=== PATIENT | male | born 1970 | race Caucasian/White ===

== ENCOUNTER → 2018-11-06 08:01 | Outpatient (CLI) | payer OTHER, SELFPAY ==
[2018-11-06 10:35] LABS: Absolute Lymphocyte Count 1.71 X10^3/ul (0.83-4.51); Absolute Neutrophil Count 2.7 X10^3/uL (2.0-7.7); Basophil# 0.04 X10^3/uL; Basophil% 0.8 % (0-1); Eosinophil# 0.13 X10^3/uL; Eosinophils% 2.6 % (0-5); Hemoglobin 15.2 g/dl (13.0-16.5); Lymphocyte # 1.71 X10^3/ul (4.0); Lymphocyte % 33.9 % (19-41); Mean Corpuscular Hgb 30.9 pg (27.0-32.0); Mean Corpuscular Volume 93.5 fL (80-94); Mean Platelet Vol. 10.9 fl (6.2-12.0); Monocyte% 9.9 % (0-10); Neutrophil # 2.66 X10^3/uL (2.7-7.7); Neutrophil % 52.8 % (47-70); POSITIVE COUNT NO; POSITIVE DIFFERENTIAL NO; POSITIVE MORPHOLOGY NO; Platelet Count 186 K/mm3 (150-450); RBC Distribution Width CV 12.9 % (11.6-14.6); RBC Distribution Width SD 43.3 fl (35.1-43.9); Red Blood Count 4.92 M/mm3 (4.6-6.2)
[2018-11-06 11:00] LABS: Anion Gap 7 (5-15); BUN 16 mg/dL (7-18); BUN/Creat Ratio 15.1 RATIO (10-20); Calcium,Total 8.7 mg/dL (8.5-10.1); Chloride 107 mmol/L (98-107); Cholesterol 168 mg/dL (200); Creatinine, Serum 1.06 mg/dL (0.70-1.30); EST Glomerular Filtration Rate 79 mL/min (>60); Est Glom Filt Rate - Afr Amer 96 mL/min (>60); Glucose 79 mg/dL (74-106); High Density Lipoprotein 56 mg/dL; Potassium 4.2 mmol/L (3.5-5.1); Sodium Level 143 mmol/L (136-145); Thyroid Stim Hormone (TSH) 1.29 uIU/mL (0.358-3.74); Triglycerides 72 mg/dL; Very Low Density Lipoprotein 14 mg/dL (5-40)
== END ==
PROVIDERS: Family Provider Family Medicine; PCP Family Medicine; Referring Provider Family Medicine; Visit Provider Family Medicine
DX: K58.9 Irritable bowel syndrome, unspecified (principal); R53.83 Other fatigue; Z13.220 Encounter for screening for lipoid disorders
CPT/HCPCS: 36415; 80048; 80061; 84403; 84443; 85025

== ENCOUNTER → 2019-02-11 10:37 | Outpatient (CLI) | payer OTHER, SELFPAY ==
--- NOTE | 2019-02-11 10:44 | VDLE_ITS ---
Reason For Study: Popliteal cyst RIGHT LEFT GSV is normal. CFV is compressible, spontaneous, phasic, CFV is compressible, spontaneous, phasic, competent, and demonstrates normal competent and demonstrates normal augmentation. augmentation. FV is compressible, spontaneous, phasic, competent and demonstrates normal augmentation. POP V is compressible, spontaneous, phasic, competent and demonstrates normal augmentation. T/P Trunk is compressible. PTV is compressible. RT PerV is compressible. Right popliteal fossa nonvascularized cyst noted measuring approximently 4.76 x 1.43 x 5.57 cm. Procedure Exam performed in department. A preliminary report was called and/or faxed to [facility]. Interpretation Summary Deep veins of the right lower extremity are patent and compressible segmentally. There is no evidence of right lower extremity deep vein thrombosis. Valvular competence appears intact within the proximal deep venous system on the right . The right greater saphenous vein appears patent and compressible segmentally. A non-vascular, hypoechoic structure is noted in the right popliteal space, measuring 4.76 cm x 1.43 cm x 5.57 cm. This probably represents a popliteal cyst. Clinical correlation is advised. Ordering Physician: Arnold Banda Referring Physician: Arnold Banda Performed By: Randi Gaytan RVT
== END ==
PROVIDERS: Family Provider Family Medicine; PCP Family Medicine; Referring Provider Family Medicine; Visit Provider Family Medicine
DX: M71.21 Synovial cyst of popliteal space [Baker], right knee (principal)
CPT/HCPCS: 93971

== ENCOUNTER → 2019-07-29 16:38 | Outpatient (CLI) | payer OTHER, SELFPAY | PROVIDERS: Family Provider Family Medicine; PCP Family Medicine; Referring Provider Family Medicine; Visit Provider Family Medicine | DX: R35.0 Frequency of micturition (principal) | CPT/HCPCS: 36415; 84153; 87086; G0103 ==

== ENCOUNTER → 2019-08-04 16:51 | Outpatient (CLI) | payer OTHER, SELFPAY ==
--- NOTE | 2019-08-04 16:52 | US_ITS ---
STUDY: ULTRASOUND - URINARY BLADDER REASON FOR EXAM: Male, 48 years old. Incomplete emptying TECHNIQUE: Ultrasound evaluation of the urinary bladder was performed with real-time and static patel-scale imaging. COMPARISON: None. FINDINGS: There is no right UVJ calculus. There is a visualized right ureteral jet. There is no left UVJ calculus. There is a visualized left ureteral jet. The distended volume of the urinary bladder is 395.55 ml. The empty volume of the urinary bladder is 72.01 ml. The bladder wall is within normal limits. The bladder wall measures 2 mm. There is no demonstrated bladder wall mass lesion. There are no demonstrated bladder calculi. US/Post Void Residual Bladder IMPRESSION: Mild residual postvoid bladder content Electronically Signed: Zachery Woods MD at 21:39 EST , Service support ,
== END ==
PROVIDERS: Family Provider Family Medicine; PCP Family Medicine; Referring Provider Family Medicine; Visit Provider Family Medicine
DX: R33.9 Retention of urine, unspecified (principal)
CPT/HCPCS: 51798

== ENCOUNTER → 2020-03-11 14:25 | Outpatient (CLI) | payer OTHER, SELFPAY ==
[2020-03-11 14:14] VITALS: BMI 25.7
== END ==
PROVIDERS: PCP Family Medicine; Referring Provider Chiropractor; Visit Provider Chiropractor
DX: M99.03 Segmental and somatic dysfunction of lumbar region (principal)
CPT/HCPCS: 72100

== ENCOUNTER → 2020-07-14 08:15 | Outpatient (CLI) | payer OTHER, SELFPAY ==
[2020-03-11 14:14] VITALS: BMI 25.7
[2020-07-14 10:00] LABS: Absolute Lymphocyte Count 1.74 X10^3/uL (0.83-4.51); Absolute Neutrophil Count 2.3 X10^3/uL (2.0-7.7); Basophil# 0.04 X10^3/uL; Basophil% 0.9 % (0-1); Eosinophil# 0.14 X10^3/uL; Hematocrit 44.9 % (40-54); Hemoglobin 14.6 g/dL (13.0-16.5); Lymphocyte # 1.74 X10^3/ul (4.0); Lymphocyte % 37.7 % (19-41); Mean Corp Hgb Conc 32.5 g/dL (32-36); Mean Corpuscular Hgb 30.9 pg (27.0-32.0); Mean Corpuscular Volume 95.1 fL (80-94); Mean Platelet Vol. 11.4 fl (6.2-12.0); Monocyte# 0.43 X10^3/uL; Monocyte% 9.3 % (0-10); NRBC Flagged by Analyzer 0 % (0-5); Neutrophil # 2.26 X10^3/uL (2.7-7.7); Neutrophil % 48.9 % (47-70); Platelet Count 197 K/mm3 (150-450); RBC Distribution Width CV 12.8 % (11.6-14.6); Red Blood Count 4.72 M/mm3 (4.6-6.2); White Blood Count 4.6 K/mm3 (4.4-11.0)
[2020-07-14 10:34] LABS: ALB/GLOB Ratio 1.1 RATIO (0.9-2.4); AST(SGOT) 20 U/L (15-37); Alanine Aminotransfer ALT/SGPT 25 U/L (16-61); Albumin, Serum 3.8 g/dL (3.2-5.0); Alkaline Phosphatase 85 U/L (45-117); Anion Gap 5 (5-15); BUN 17 mg/dL (7-18); Calcium,Total 8.4 mg/dL (8.5-10.1); Chloride 105 mmol/L (98-107); Cholesterol 185 mg/dL (200); Creatinine, Serum 1.06 mg/dL (0.70-1.30); EST Glomerular Filtration Rate 78 mL/min (>60); Est Glom Filt Rate - Afr Amer 95 mL/min (>60); Globulin 3.5 g/dL (2.2-4.2); Glucose 86 mg/dL (74-106); High Density Lipoprotein 64 mg/dL; Protein, Total 7.3 g/dL (6.4-8.2); Sodium Level 139 mmol/L (136-145); Triglycerides 81 mg/dL; Very Low Density Lipoprotein 16 mg/dL (5-40)
== END ==
PROVIDERS: PCP Family Medicine; Referring Provider Family Medicine; Visit Provider Family Medicine
DX: Z00.00 Encounter for general adult medical examination without abnormal findings (principal)
CPT/HCPCS: 36415; 80053; 80061; 85025

== ENCOUNTER → 2021-05-11 16:16 | Outpatient (CLI) | payer OTHER, SELFPAY ==
[2021-05-11 18:08] LABS: CRP < 2.90 mg/L (0.0-3.0)
[2021-05-13 16:08] LABS: Endomysial Antibody IgA Negative (Negative)
[2021-05-13 21:12] LABS: Immunoglobulin A 167 mg/dL (90-386); t-Transglutaminase IgA <2 U/mL (0-3)
== END ==
PROVIDERS: PCP Family Medicine; Referring Provider Internal Medicine Gastroenterology; Visit Provider Internal Medicine Gastroenterology
DX: R19.7 Diarrhea, unspecified (principal)
CPT/HCPCS: 36415; 82784; 83516; 86140; 86255

== ENCOUNTER → 2022-06-27 | Outpatient (CLI) | payer OTHER, SELFPAY ==
[2022-06-27 16:12] LABS: Absolute Lymphocyte Count 2.49 X10^3/uL (0.83-4.51); Absolute Neutrophil Count 3.9 X10^3/uL (2.0-7.7); Basophil# 0.06 X10^3/uL; Basophil% 0.8 % (0-1); Eosinophil# 0.16 X10^3/uL; Eosinophils% 2.2 % (0-5); Hematocrit 42.1 % (40-54); Hemoglobin 14.6 g/dL (13.0-16.5); Lymphocyte # 2.49 X10^3/ul (0.83-4.51); Lymphocyte % 34.1 % (19-41); Mean Corp Hgb Conc 34.7 g/dL (32-36); Mean Corpuscular Volume 92.3 fL (80-94); Mean Platelet Vol. 10.8 fl (6.2-12.0); Monocyte# 0.67 X10^3/uL; Monocyte% 9.2 % (0-10); NRBC Flagged by Analyzer 0 % (0-5); Neutrophil # 3.92 X10^3/uL (2.7-7.7); Neutrophil % 53.6 % (47-70); Platelet Count 184 K/mm3 (150-450); Red Blood Count 4.56 M/mm3 (4.6-6.2); White Blood Count 7.3 K/mm3 (4.4-11.0)
--- NOTE | 2022-06-27 16:20 | RAD_ITS ---
STUDY: X-RAY CHEST REASON FOR EXAM: Male, 51 years old. Pre-op. TECHNIQUE: PA and lateral views of the chest. COMPARISON: 08/04/2021. FINDINGS: The lungs are clear and expanded. There is no demonstrated pleural abnormality. Normal size heart. Normal mediastinum and carrie. Normal visualized pulmonary arteries. Normal visualized aortic arch and descending thoracic aorta. Normal visualized thoracic spine. Normal visualized ribs, clavicles, and shoulders. There is no demonstrated abnormality of the visualized soft tissue structures of the upper abdomen. RAD/Chest PA and Lateral IMPRESSION: No acute cardiopulmonary disease or major interval change. Electronically Signed: Lee Middleton DO at 23:52 EDT ,
[2022-06-27 16:49] LABS: Vitamin B12 979 pg/mL (211-911); Vitamin D,25 Hydroxy 55.5 ng/mL
[2022-06-27 16:51] LABS: ALB/GLOB Ratio 1.1 RATIO (0.9-2.4); AST(SGOT) 27 U/L (15-37); Alanine Aminotransfer ALT/SGPT 33 U/L (16-61); Albumin, Serum 3.7 g/dL (3.2-5.0); Alkaline Phosphatase 91 U/L (45-117); Anion Gap 3 (5-15); BUN 19 mg/dL (7-18); BUN/Creat Ratio 15.6 RATIO (10-20); Calcium,Total 8.8 mg/dL (8.5-10.1); Chloride 108 mmol/L (98-107); Creatinine, Serum 1.22 mg/dL (0.70-1.30); EST Glomerular Filtration Rate 66 mL/min (>60); Est Glom Filt Rate - Afr Amer 80 mL/min (>60); Globulin 3.5 g/dL (2.2-4.2); Glucose 106 mg/dL (74-106); PSA,Total - Annual Screen 0.48 ng/mL (0.00-4.00); Potassium 4.1 mmol/L (3.5-5.1); Protein, Total 7.2 g/dL (6.4-8.2); Sodium Level 141 mmol/L (136-145); T4 Free Direct 0.85 ng/dL (0.76-1.46); Thyroid Stim Hormone (TSH) 1.61 uIU/mL (0.358-3.74)
[2022-06-28 14:40] LABS: Hemoglobin A1c 5.5 % (3.8-5.6)
[2022-07-08 14:12] LABS: Testosterone, Free 8.39 ng/dL (5.00-21.00)
[2022-07-09 12:14] LABS: Testosterone, % Free 2.15 % (1.50-4.20); Testosterone, Total 390 ng/dL (264-916)
== END | disposition home or self-care (01) ==
PROVIDERS: PCP Family Medicine; Referring Provider Student in an Organized Health Care Education/Training Program; Visit Provider Student in an Organized Health Care Education/Training Program
DX: Z01.818 Encounter for other preprocedural examination (principal); Z01.810 Encounter for preprocedural cardiovascular examination; Z01.811 Encounter for preprocedural respiratory examination
CPT/HCPCS: 36415; 71046; 80053; 82306; 82607; 83036; 84153; 84402; 84403; 84439; 84443; 85025; 93005; G0103

== ENCOUNTER → 2022-10-24 | Outpatient (CLI) | payer OTHER, SELFPAY ==
--- NOTE | 2022-10-24 15:30 | ECHOD_ITS ---
Reason For Study: NON-RHEUMATIC INSUFFICIENCY Procedure This was a 2D Doppler, Color Flow transthoracic echocardiogram. Exam performed in department. Left Ventricle Normal LV size. Left ventricular systolic function is lower limits of normal. The estimated ejection fraction is 53 %. No regional wall motion abnormalities noted. Right Ventricle Mildly dilated right ventricle. Normal systolic function. Atria Normal left atrium. Normal right atrium. Mitral Valve Normal mitral valve. Tricuspid Valve Normal tricuspid valve. Mild tricuspid valve insufficiency. Aortic Valve Normal aortic valve. Trisinus/trileaflet aortic valve. Mild (1+) aortic valve insufficiency. Pulmonic Valve Normal pulmonic valve. Great Vessels Normal aortic root. The pulmonary artery is normal size. Normal inferior vena cava. Pericardium/Pleural No pericardial effusion. MMode/2D Measurements & Calculations LVIDd: 5.7 cm IVSd: 0.98 cm Ao root diam: 3.4 cm LVIDs: 3.8 cm LVPWd: 1.0 cm RVDd: 4.7 cm FS: 32.8 % LAV(MOD-bp): 82.0 ml LA A4 area: 21.2 cm2 LA dimension(2D): 4.3 cm LAV(MOD-bp) Indexed: 38.5 ml/m2 LAV(MOD-sp2): 86.3 ml LAV(MOD-sp4): 71.6 ml RA A4 area: 21.4 cm2 Doppler Measurements & Calculations MV E max thierry: 48.5 cm/sec Lat Peak E' Thierry: 12.7 cm/sec Med Peak E' Thierry: 11.1 cm/sec MV A max thierry: 31.1 cm/sec E/E' lat: 3.8 E/E' med: 4.4 MV E/A: 1.6 Ao V2 max: 114.5 cm/sec AI max thierry: 412.1 cm/sec LV V1 max: 76.1 cm/sec Ao max P.2 mmHg AI max P.0 mmHg LV V1 max P.3 mmHg Ao V2 mean: 80.9 cm/sec AI dec slope: 155.5 cm/sec2 LV V1 mean P.3 mmHg Ao mean P.0 mmHg AI P1/2t: 776.1 msec LV V1 mean: 52.1 cm/sec Ao V2 VTI: 25.5 cm LV V1 VTI: 16.4 cm AV (velocity ratio): 0.64 MR max thierry: 459.1 cm/sec PA V2 max: 92.6 cm/sec TR max thierry: 189.5 cm/sec MR max P.3 mmHg TR max P.4 mmHg MR mean thierry: 404.0 cm/sec MR mean P.8 mmHg MR VTI: 164.6 cm ECHO/Echo Complete Interpretation Summary Normal LV size. Left ventricular systolic function is lower limits of normal. Mildly dilated right ventricle. The estimated ejection fraction is 53 %. Mild (1+) aortic valve insufficiency. Ordering Physician: Danielle Rubio Referring Physician: Danielle Rubio Performed By: Crystal Jay RDCS, RVT
== END | disposition home or self-care (01) ==
LOC: CVS 15:28
PROVIDERS: PCP Internal Medicine; Referring Provider Internal Medicine; Visit Provider Internal Medicine
DX: I35.1 Nonrheumatic aortic (valve) insufficiency (principal)
CPT/HCPCS: 93306

== ENCOUNTER → 2023-06-12 | Outpatient (CLI) | payer OTHER, SELFPAY ==
[2023-06-12 17:52] LABS: Hemoglobin 13.9 g/dL (13.0-16.5)
[2023-06-12 18:32] LABS: PSA,Total- Diagnostic 0.44 ng/mL (0.0-4.0)
== END | disposition home or self-care (01) ==
LOC: MTLAB 15:40
PROVIDERS: PCP Internal Medicine; Referring Provider Urology; Visit Provider Urology
DX: R53.1 Weakness (principal)
CPT/HCPCS: 36415; 84153; 84402; 84403; 85014; 85018

== ENCOUNTER → 2023-09-06 | Outpatient (CLI) | payer OTHER, SELFPAY ==
[2023-09-06 16:19] LABS: Absolute Lymphocyte Count 2.41 X10^3/uL (0.83-4.51); Absolute Neutrophil Count 3.6 X10^3/uL (2.0-7.7); Basophil# 0.06 X10^3/uL; Basophil% 0.9 % (0-1); Eosinophil# 0.15 X10^3/uL; Eosinophils% 2.2 % (0-5); Hematocrit 41.4 % (40-54); Hemoglobin 13.8 g/dL (13.0-16.5); Lymphocyte # 2.41 X10^3/ul (0.83-4.51); Lymphocyte % 35.2 % (19-41); Mean Corp Hgb Conc 33.3 g/dL (32-36); Mean Corpuscular Hgb 31.4 pg (27.0-32.0); Mean Corpuscular Volume 94.3 fL (80-94); Mean Platelet Vol. 10.8 fl (6.2-12.0); Monocyte# 0.62 X10^3/uL; Monocyte% 9.1 % (0-10); NRBC Flagged by Analyzer 0 % (0-5); Neutrophil # 3.59 X10^3/uL (2.7-7.7); Neutrophil % 52.3 % (47-70); Platelet Count 188 K/mm3 (150-450); RBC Distribution Width CV 12.5 % (11.6-14.6); RBC Distribution Width SD 43.7 fl (35.1-43.9); Red Blood Count 4.39 M/mm3 (4.6-6.2); White Blood Count 6.9 K/mm3 (4.4-11.0)
[2023-09-06 16:35] LABS: Anion Gap 1 (5-15); BUN 19 mg/dL (7-18); BUN/Creat Ratio 16.8 RATIO (10-20); Calcium,Total 8.6 mg/dL (8.5-10.1); Chloride 106 mmol/L (98-107); Creatinine, Serum 1.13 mg/dL (0.70-1.30); EST Glomerular Filtration Rate 72 mL/min (>60); Est Glom Filt Rate - Afr Amer 87 mL/min (>60); Glucose 118 mg/dL (74-106); Potassium 4.1 mmol/L (3.5-5.1); Sodium Level 137 mmol/L (136-145)
== END | disposition home or self-care (01) ==
LOC: LAB 15:45
PROVIDERS: PCP Internal Medicine; Referring Provider Student in an Organized Health Care Education/Training Program; Visit Provider Student in an Organized Health Care Education/Training Program
DX: Z01.818 Encounter for other preprocedural examination (principal)
CPT/HCPCS: 36415; 80048; 85025

== ENCOUNTER → 2024-07-03 | Outpatient (CLI) | payer OTHER, SELFPAY ==
[2024-07-03 18:20] LABS: Vitamin D,25 Hydroxy 60.6 ng/mL
[2024-07-03 18:25] LABS: ALB/GLOB Ratio 1.2 RATIO (0.9-2.4); AST(SGOT) 21 U/L (15-37); Alanine Aminotransfer ALT/SGPT 21 U/L (16-61); Albumin, Serum 3.9 g/dL (3.2-5.0); Alkaline Phosphatase 74 U/L (45-117); Anion Gap 6 (5-15); BUN 15 mg/dL (7-18); Calcium,Total 9.1 mg/dL (8.5-10.1); Chloride 106 mmol/L (98-107); Creatinine, Serum 1.07 mg/dL (0.70-1.30); EST Glomerular Filtration Rate 76 mL/min (>60); Est Glom Filt Rate - Afr Amer 92 mL/min (>60); Globulin 3.3 g/dL (2.2-4.2); Glucose 103 mg/dL (74-106); PSA,Total - Annual Screen 0.55 ng/mL (0.00-4.00); Potassium 3.5 mmol/L (3.5-5.1); Protein, Total 7.2 g/dL (6.4-8.2); Sodium Level 138 mmol/L (136-145)
== END | disposition home or self-care (01) ==
PROVIDERS: PCP Family Medicine; Referring Provider Family Medicine; Visit Provider Family Medicine
DX: Z12.5 Encounter for screening for malignant neoplasm of prostate (principal); E55.9 Vitamin D deficiency, unspecified
CPT/HCPCS: 36415; 80053; 82306; 84153; G0103

== ENCOUNTER → 2025-03-19 | Outpatient (CLI) | payer OTHER, SELFPAY ==
--- OUTSIDE RECORDS SUMMARY | 2025-03-19 07:17 | XMS RPT_ITS | CCD ---
Author Organization [facility] Care Team Providers Care Sql Database Developer Name Role Phone Dr. Janes Taylor Primary Care Provider Dr. Danielle Rubio Attending Provider Dr. Danielle Rubio Primary Care Provider Dr. Kirill Lewis Attending Provider Janes Taylor Unavailable Unavailable Unavailable MD JANES RUVALCABA Attending UnavailMD JANES Sandoval Referring Dr. Janes Rodriguez Primary Care Nancy Taylor MD, Janes Dye Primary Care Provider JANES TAYLOR Primary Care UnavailJANES Vergara Primary [facility] Unavailnga Taylor MD, Janes Lara Primary Care Provider JANES RUVALCABA Attending Unavailable JANES TAYLOR Primary Care UnavailJANES Sandoval Attending Unavailable JANES TAYLOR Primary Care UnavailJANES Sandoval Attending Unavailable JANES TAYLOR Primary Care UnavailJANES Sandoval Attending Unavailable JANES TAYLOR Primary [facility] UnavailJANES Sandoval Attending Unavailable JANES TAYLOR Primary Care UnavailJEREMIAH Manuel Attending Unavailable JANES TAYLOR Primary [facility] UnavailJANES Vergara Primary Care Unavailable NAZANIN LYNCH Attending Unavailable NAZANIN LYNCH Admitting Unavailable JANES TAYLOR Primary Care Unavailable NAZANIN LYNCH Attending Unavailable SCHINNER, JANES E Primary Care Unavailable SCHINNER, JANES E Primary Care Unavailable NAZANIN LYNCH Referring Unavailable SCHINNER, JANES Lara Primary Care Unavailable KAYLAH CLEMENTS Referring Unavailable ATTILA ADAMS Attending Unavailable SCHINNER, JANES E Primary Care Unavailable SCHINNER, JANES E Primary Care Unavailable SCHINNER, JANES E Primary Care Unavailable Richar Cain Attending Unavailable Schingloria, Janes E Referring Unavailable Schinner, Janes E Primary Care Unavailable Elvis Mitchell Attending Unavailable Nadia, Janes E Primary Care Unavailable Schinner, Janes E Referring Unavailable Hung Clay Attending Unavailable Danielle Rubio Primary Care Unavailable Danielle Rubio Referring Unavailable Janes Taylor Primary Care Unavailable Janes Taylor Attending Unavailable Janes Taylor Referring Unavailable Elvis Mitchell Attending Unavailable Nadia, Janes Lara Primary Care Unavailable Nadia, Janes Lara Primary Care Unavailable Kimani Garcia Attending Unavailable Danielle Rubio Primary Care Unavailable Hung Clay Attending Unavailable Danielle Rubio Referring Unavailable Danielle Rubio Primary Care Unavailable Hung Clay Attending Unavailable Danielle Rubio Referring Unavailable Allergies Allergy Classification Reported Allergen(s) Allergy Type Date of Onset Reaction(s) Facility (1 source) Seasonal Allergies: Uncoded; Translations: [Seasonal Allergies: Uncoded] Propensity to adverse reactions (disorder) [facility] Repository Medications Current Medications Medication Drug Class(es) Dates Sig (Normalized) Sig (Original) cephalexin 500 mg oral tablet (1 source) Cephalosporin Antibacterial Start: 04-27-2024 End: 05-02-2024 take 1 tablet by mouth every twelve hours Cephalexin 500 mg tab Indications: Cellulitis of skin Take 1 tablet by mouth every 12 hours for 5 days. 10 tablet 0 04/27/2024 05/02/2024 Active cholecalciferol 0.025 mg oral capsule (3 sources) Vitamin D Start: 09-07-2021 take 25 ug by mouth once daily Cholecalciferol (Vitamin D3) Active 25 MCG PO DAILY September 07, 2021 12:00am cholecalciferol, vitamin D3, (VITAMIN D3 ORAL) (8 sources) cholecalciferol, vitamin D3, (VITAMIN D3 ORAL) Take by mouth once daily. Active cholecalciferol, vitamin D3, (VITAMIN D3 ORAL) Take by mouth once daily. 0 Active DHEA (3 sources) Start: 10-19-2022 DHEA Active PO 1 time daily October 19, 2022 1:00am .225 ml Start: 10-19-2022 DHEA Active PO 1 time daily October 19, 2022 12:00am .225 ml DOCOSAHEXANOIC ACID/EPA (FIS H OIL ORAL) (8 sources) DOCOSAHEXANOIC A IRENE/EPA (FISH OIL ORAL) Take by mouth. Active DOCOSAHEXANOIC A IRENE/EPA (FISH OIL ORAL) Take by mouth. 0 Active Magnesium (8 sources) MAGNESIUM ORAL T vickie by mouth once daily. Active MAGNESIUM ORAL T vickie by mouth once daily. 0 Active mirtazapine 7.5 mg oral tablet (6 sources) Start: 08-31-2024 take 3.75-7.5 mg by mouth once daily at bedtime Mirtazapine (REMERON) 7.5 mg tablet Take 3.75-7.5 mg by mouth daily at bedtime. 08/31/2024 Active MULTIVITAMIN ORAL (8 sources) MULTIVITAMIN ORA L Take by mouth once daily. Active MULTIVITAMIN ORA L Take by mouth once daily. 0 Active Multivitamin preparation (3 sources) Start: 09-07-2021 take 1 tablet by mouth once daily Multivitamin Active 1 TABLET PO DAILY September 07, 2021 1:00am Start: 09-07-2021 take 1 tablet by [facility] once daily Multivitamin Active 1 TABLET PO DAILY September 07, 2021 12:00am [place]-3 Fatty Acids (Fish Oil Concentrate) 1,000 mg capsule (3 sources) Start: 09-07-2021 take 1 capsule by mouth once daily [place]-3 Fatty Acids (Fish Oil Concentrate) 1,000 mg capsule Active 1000 MG PO DAILY September 07, 2021 1:00am Start: 09-07-2021 take 1 capsule by mo [facility] once daily [place]-3 Fatty Acids (Fish Oil Concentrate) 1,000 mg capsule Active 1000 MG PO DAILY September 07, 2021 12:00am oxyCODONE hydrochloride 5 mg oral tablet (1 source) Opioid Agonist Start: 11-05-2024 End: 11-08-2024 take 1 tablet by mouth every six hours as needed oxyCODONE IR (ROXICODONE) 5 mg immediate release tablet Indications: Non-recurrent bilateral inguinal hernia without obstruction or gangrene Take 1 tablet by mouth every 6 hours as needed for up to 3 days. 12 tablet 11/05/2024 1:04 PM EST 11/05/2024 11/08/2024 Active psylium husk (3 sources) Start: 10-19-2022 psylium husk A ctive PO 1 time daily October 19, 2022 1:00am Start: 10-19-2022 psylium husk A ctive PO 1 time daily October 19, 2022 12:00am tadalafil 5 mg oral tablet (19 sources) Phosphodiesterase 5 Inhibitor Start: 06-06-2023 End: 06-19-2025 take 1 tablet by mouth once daily tadalafil (Cialis) 5 mg tablet Indications: Benign prostatic hyperplasia with lower urinary tract symptoms, symptom details unspecified Take 1 tablet (5 mg) by mouth once daily. 30 tablet 11 06/19/2024 06/19/2025 Active 0.5 ml testosterone enanthate 200 mg/ml auto-injector (13 sources) Androgen Start: 12-19-2023 testosterone enanthate (Xyosted) 100 mg/0.5 mL auto-injector Indications: Hypogonadism in male Inject 1 Syringe (100 mg) under the skin every 7 days. 4 each 5 12/19/2023 Active Start: 08-13-2023 End: 04-09-2024 testosterone cypionate (Depo-Testosterone) 200 mg/mL injection Indications: Hypogonadism in male Inject 3 mL (600 mg) into the muscle every 30 (thirty) days. 3 mL 5 08/13/2023 04/09/2024 Discontinued (Med List Cleanup) Start: 06-06-2023 inject 100 mg by sub cutaneous injection every week Xyosted 100 MG/0.5ML Subcutaneous Solution Auto-injector INJECT 100 MG Weekly Quantity: 4 Refills: 0 Ordered: 06-Jun-2023 Janes Ruvalcaba II, MD Start : 06-Jun-2023 Active Completed/Discontinued Medications Medication Drug Class(es) Dates Sig (Normalized) Sig (Original) acyclovir 50 mg/ml topical cream (6 sources) Herpesvirus Nucleoside Analog DNA Polymerase Inhibitor, Herpes Simplex Virus Nucleoside Analog DNA Polymerase Inhibitor, Herpes Zoster Virus Nucleoside Analog DNA Polymerase Inhibitor Start: 07-04-2013 End: 10-16-2024 acyclovir (ZOVIRAX) 5 % crea Apply 1 application to affected area five times daily. 3 Tube 4 07/14/2013 10/16/2024 Discontinued (Course of therapy completed) azithromycin 250 mg oral tablet (3 sources) Macrolide Antimicrobial Start: 08-04-2021 End: 09-07-2021 take 2-5 tablets by mouth once daily Azithromycin (Zithromax Z-George) 250 mg tablet Discontinued 0 PO .COMPLEX 6 August 04, 2021 12:00am September 07, 2021 8:17am take 500 mg today (day 1), then 250 mg for 4 days (days 2-5) PO benzonatate 100 mg oral capsule (2 sources) Non-narcotic Antitussive Start: 09-08-2024 End: 10-16-2024 take 1 capsule by mouth every eight hours as needed benzonatate (TESSALON PERLE) 100 mg capsule Take 1 capsule by mouth three times a day as needed. 21 capsule 09/08/2024 10/16/2024 Discontinued (Course of therapy completed) clomiPHENE citrate 50 mg oral tablet (8 sources) Estrogen Agonist/Antagonist Start: 06-13-2023 take 1 tablet by mouth once daily Clomid 50 MG Oral Tablet TAKE 1 TABLET DAILY. Quantity: 30 Refills: 11 Ordered: 13-Jun-2023 Janes Ruvalcaba II, MD Start : 13-Jun-2023 Active pantoprazole 40 mg delayed release oral tablet (6 sources) Proton Pump Inhibitor Start: 06-11-2013 End: 10-16-2024 take 1 tablet by mouth once daily pantoprazole (PROTONIX) 40 mg tablet Take 1 tablet by mouth once daily. 90 tablet 4 06/11/2013 10/16/2024 Discontinued (Course of therapy completed) End: 10-16-2024 PANTOPRAZOLE SODIUM (PROTONI X ORAL) Take by mouth. Pt unsure of dosage 10/16/2024 Discontinued (Course of therapy completed) PANTOPRAZOLE SOD IUM (PROTONIX ORAL) Take by mouth. Pt unsure of dosage Active PANTOPRAZOLE SOD IUM (PROTONIX ORAL) Take by mouth. Pt unsure of dosage 0 Active SAW PALMETTO ORAL (3 sources) End: 10-16-2024 SAW PALMETTO ORAL Take by mo uth once daily. 10/16/2024 Discontinued (Course of therapy completed) SAW PALMETTO ORA L Take by mouth once daily. Active SAW PALMETTO ORA L Take by mouth once daily. 0 Active traZODone hydrochloride 50 mg oral tablet (3 sources) Serotonin Reuptake Inhibitor Start: 03-11-2020 End: 09-07-2021 take 50 mg by mouth once daily Trazodone Discontinued 50 MG PO DAILY March 10, 2020 11:00pm September 07, 2021 8:17am Problems Active Problems Problem Classification Problem Date Documented Da te Episodic/Chronic Abdominal hernia (11 sources) Inguinal hernia; Translations: [Unilateral inguinal hernia, without obstruction or gangrene, not specified as recurrent] Onset: 4 07-17-2024 Episodic Acute bronchitis (9 sources) Acute bronchitis; Translations: [Acute bronchitis, unspecified] Onset: 5 08-04-2021 Episodic Administrative/social admission (4 sources) Patient encounter status; Translations: [Persons encountering health services in other specified circumstances] 10-23-2022 Episodic Esophageal disorders (10 sources) Gastroesophageal reflux disease; Translations: [Gastro-esophageal reflux disease without esophagitis] Onset: 5 10-23-2022 Chronic Genitourinary symptoms and ill-defined conditions (20 sources) Nocturia; Translations: [Nocturia] Onset: 3 08-29-2023 Episodic Heart valve disorders (11 sources) Aortic valve regurgitation; Translations: [Nonrheumatic aortic (valve) insufficiency] Onset: 5 10-19-2022 Chronic Hyperplasia of prostate (20 sources) Benign prostatic hypertrophy with outflow obstruction; Translations: [Benign localized hyperplasia of prostate with urinary obstruction and other lower urinary tract symptoms (LUTS)] Onset: 3 08-29-2023 Chronic Immunizations and screening for infectious disease (1 source) Suspected disease caused by 2019-nCoV; Translations: [Suspected COVID-19 virus infection] 09-08-2024 Episodic Malaise and fatigue (16 sources) Fatigue; Translations: [Other malaise and fatigue] Onset: 3 07-24-2023 Episodic Osteoarthritis (13 sources) Osteoarthritis; Translations: [Unspecified osteoarthritis, unspecified site] Onset: 4 10-23-2022 Chronic Other bone disease and musculoskeletal deformities (18 sources) Segmental and somatic dysfunction; Translations: [Segmental and somatic dysfunction of cervical region] Onset: 5 03-11-2020 Episodic Other connective tissue disease (9 sources) Synovial cyst of knee; Translations: [Synovial cyst of popliteal space [Louise], unspecified knee] Onset: 5 09-07-2021 Episodic Other endocrine disorders (20 sources) Male hypogonadism; Translations: [Other testicular hypofunction] Onset: 3 08-29-2023 Chronic Other endocrine disorders (5 sources) Testicular hypofunction; Translations: [Testicular hypofunction] Onset: 3 Chronic Other gastrointestinal disorders (8 sources) Altered bowel function; Translations: [Other specified symptoms and signs involving the digestive system and abdomen] Onset: 5 01-11-2023 Episodic Other nervous system disorders (1 source) Paresthesia; Translations: [Paresthesia of skin] 04-27-2024 Episodic Other non-traumatic joint disorders (3 sources) Pain in right knee; Translations: [Right knee pain] 09-07-2021 Episodic Other nutritional; endocrine; and metabolic disorders (1 source) Abnormal weight gain; Translations: [Abnormal weight gain] Onset: 5 Episodic Other screening for suspected conditions (not mental disorders or infectious disease) (2 sources) Encounter for screening for malignant neoplasm of prostate; Translations: [Encounter for screening for malignant neoplasm of prostate] Onset: 4 Episodic Other upper respiratory infections (1 source) Acute upper respiratory infection; Translations: [Acute upper respiratory infection, unspecified] 09-08-2024 Episodic Residual codes; unclassified (9 sources) Insomnia; Translations: [Insomnia, unspecified] Onset: 5 01-11-2023 Episodic Residual codes; unclassified (1 source) Decreased libido; Translations: [Decreased libido] Onset: 5 Episodic Skin and subcutaneous tissue infections (1 source) Cellulitis of skin; Translations: [Cellulitis, unspecified] 04-27-2024 Episodic Spondylosis; intervertebral disc disorders; other back problems (9 sources) Backache; Translations: [Dorsalgia, unspecified] Onset: 5 03-11-2020 Episodic Viral infection (3 sources) Disease caused by 2019-nCoV; Translations: [COVID-19] 08-04-2021 Episodic Past or Other Problems Problem Classification Problem Date Documented Da te Episodic/Chronic Other upper respiratory disease (8 sources) Abnormal voice; Translations: [Unspecified voice and resonance disorder] Onset: 01-13-2013 01-13-2013 Episodic Other upper respiratory disease (8 sources) Polyp of vocal cord ; Translations: [Polyp of vocal cord and larynx] Onset: 01-13-2013 01-13-2013 Episodic Unclassified (6 sources) Onset: 12-19-2023 12-19-2023 Results Test Name Value Interpretation Reference Range Facility [facility] 11-17-2024 CNOV Office Visit (CASTRO) MICHELLE NIEVES ([id number]) 1970 M Date Time Provider Department 11/17/24 2:45 PM ATTILA AADMS During your visit today, we recorded the following information about you: Attila Adams PA-C 11/20/2024 4:27 PM Signed IMPRESSION: Patient is s/p laparoscopic Bilateral inguinal hernia repair WITH mesh. PLAN: Post-op patient instructions were reviewed with the patient. I have explained to Mr. Nieves that he may return to normal activity with the following restrictions: no lifting greater than 20lbs for the next 4 weeks. I have encouraged him to contact me at any time with any questions or concerns that may arise. Follow up: PRN SUBJECTIVE: On 11/05/24 Michelle Nieves underwent a hernia repair with Dr. Nazanin Lynch. Presents now for follow up. Patient complaints: Post operative soreness Patient denies: Difficulty voiding, Redness around wound, and Drainage from incision/s OBJECTIVE: General Appearance: alert, oriented and in no acute distress Groin: soft and non-tender, no bulge or mass Incision: well approximated, no signs or symptoms of infection , and clean, dry and intact Attila Adams PA-C 11/17/2024 Allergies As of Date: 11/17/2024 (No Known Allergies) Date Reviewed: 11/17/2024 Reviewed by: Jacquie Ferro MA - Fully Assessed Reason for Visit: Post-Op Visit [1236] Cmt: 11/05 KD Bi Ing HR w/M Primary Visit Diagnosis:S/P bilateral inguinal hernia repair [Z98.890, Z87.19] Other Visit Diagnosis:Right inguinal hernia [K40.90] Prescriptions as of 11/20/2024 - Mirtazapine (REMERON) 7.5 mg tablet Take 3.75-7.5 mg by mouth daily at bedtime. - Tadalafil (CIALIS) 5 mg tablet Take 5 mg by mouth. - MAGNESIUM ORAL Take by mouth once daily. - cholecalciferol, vitamin D3, (VITAMIN D3 ORAL) Take by mouth once daily. - MULTIVITAMIN ORAL Take by mouth once daily. - DOCOSAHEXANOIC ACID/EPA (FISH OIL ORAL) Take by mouth. 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] 01/13/2013 Synovial cyst of knee [M71.20] 10/16/2024 Segmental and somatic dysfunction [M99.09] 10/16/2024 Osteoarthritis of right knee [M17.11] 04/23/2024 Nocturia [R35.1] 07/24/2023 Insomnia [G47.00] 10/16/2024 Hypogonadism in male [E29.1] 07/24/2023 Gastroesophageal reflux disease [K21.9] 10/16/2024 Fatigue [R53.83] 06/18/2023 Benign prostatic hyperplasia with urinary obstr*10/16/2024 Benign prostatic hyperplasia with lower urinary*07/24/2023 Back pain [M54.9] 10/16/2024 Aortic valve regurgitation [I35.1] 10/16/2024 Altered bowel function [R19.8] 10/16/2024 Acute bronchitis [J20.9] 10/16/2024 Non-recurrent bilateral inguinal hernia without*11/05/2024 Encounter Status:Closed by ATTILA ADAMS [facility]EV[facility] ([id number]) 1970 M Date Time Provider Department 11/12/24 NAZANIN LYNCH During your visit today, we recorded the following information about you: Lynn Hill RN 11/12/2024 3:20 PM Signed Patient call to state he was doing the Heimlich maneuver and chest compressions on someone who was choking today . (The person ) He later felt sharp pain in his left side- front hip area. He is afraid he may have done something. Denies swelling or bulge to area, no redness Rates pain 3/10- tender at present Moved his post op appt up to 11/17/24 Advised to monitor the area for changes- swelling, increase in pain. Apply ice or heat to area for comfort for 15 min intervals during day. Advised to keep appt scheduled for 11/17/24 with Attila Adams Pa-C Advised to call if symptoms became much worse before then. Patient verbalizes understanding and has no further questions or concerns at this time. Was advised to call as needed for future problems. DATE OF SURGERY/PROCEDURE: 11/05/2024 PREOPERATIVE DIAGNOSIS: Right inguinal hernia. POSTOPERATIVE DIAGNOSIS: Bilateral inguinal hernias. SURGEON: Nazanin Lynch M.D. Post op 11/17/24 with Attila Adams Pa-C Allergies As of Date: 11/12/2024 (No Known Allergies) Date Reviewed: 11/05/2024 Reviewed by: Alexsandra Torres RN - Fully Assessed Reason for Visit: Patient Update [1234] Prescriptions as of 11/13/2024 - Mirtazapine (REMERON) 7.5 mg tablet Take 3.75-7.5 mg by mouth daily at bedtime. - Tadalafil (CIALIS) 5 mg tablet Take 5 mg by mouth. - MAGNESIUM ORAL Take by mouth once daily. - cholecalciferol, vitamin D3, (VITAMIN D3 ORAL) Take by mouth once daily. - MULTIVITAMIN ORAL Take by mouth once daily. - DOCOSAHEXANOIC ACID/EPA (FISH OIL ORAL) Take by mouth. 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] 01/13/2013 Synovial cyst of knee [M71.20] 10/16/2024 Segmental and somatic dysfunction [M99.09] 10/16/2024 Osteoarthritis of right knee [M17.11] 04/23/2024 Nocturia [R35.1] 07/24/2023 Insomnia [G47.00] 10/16/2024 Hypogonadism in male [E29.1] 07/24/2023 Gastroesophageal reflux disease [K21.9] 10/16/2024 Fatigue [R53.83] 06/18/2023 Benign prostatic hyperplasia with urinary obstr*10/16/2024 Benign prostatic hyperplasia with lower urinary*07/24/2023 Back pain [M54.9] 10/16/2024 Aortic valve regurgitation [I35.1] 10/16/2024 Altered bowel function [R19.8] 10/16/2024 Acute bronchitis [J20.9] 10/16/2024 Non-recurrent bilateral inguinal hernia without*11/05/2024 Encounter Status:Closed by LYNN HILL on 11/13/24 [facility] CNCOon 11-07-2024 CNCO Letter Text [facility] CNPNon 11-07-2024 CNPN Telephone (GENSME) MICHELLE NIEVES ([id number]) 1970 M Date Time Provider Department 11/07/24 NAZANIN LYNCH During your visit today, we recorded the following information about you: Lynn Hill RN 11/07/2024 11:49 AM Signed Patient called for Return to Work Letter. Letter drafted in [facility] and posted to [facility] per his request. RTW 11/12/24 with restrictions , he said he discussed this with Dr Lynch. Encounter closed. Allergies As of Date: 11/07/2024 (No Known Allergies) Date Reviewed: 11/05/2024 Reviewed by: Alexsandra Torres, CORTNEY - Fully Assessed Reason for Visit: Return To Work Letter [[id number]] Prescriptions as of 11/07/2024 - oxyCODONE IR (ROXICODONE) 5 mg immediate release tablet Take 1 tablet by mouth every 6 hours as needed for up to 3 days. - Mirtazapine (REMERON) 7.5 mg tablet Take 3.75-7.5 mg by mouth daily at bedtime. - Tadalafil (CIALIS) 5 mg tablet Take 5 mg by mouth. - MAGNESIUM ORAL Take by mouth once daily. - cholecalciferol, vitamin D3, (VITAMIN D3 ORAL) Take by mouth once daily. - MULTIVITAMIN ORAL Take by mouth once daily. - DOCOSAHEXANOIC ACID/EPA (FISH OIL ORAL) Take by mouth. 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] 01/13/2013 Synovial cyst of knee [M71.20] 10/16/2024 Segmental and somatic dysfunction [M99.09] 10/16/2024 Osteoarthritis of right knee [M17.11] 04/23/2024 Nocturia [R35.1] 07/24/2023 Insomnia [G47.00] 10/16/2024 Hypogonadism in male [E29.1] 07/24/2023 Gastroesophageal reflux disease [K21.9] 10/16/2024 Fatigue [R53.83] 06/18/2023 Benign prostatic hyperplasia with urinary obstr*10/16/2024 Benign prostatic hyperplasia with lower urinary*07/24/2023 Back pain [M54.9] 10/16/2024 Aortic valve regurgitation [I35.1] 10/16/2024 Altered bowel function [R19.8] 10/16/2024 Acute bronchitis [J20.9] 10/16/2024 Non-recurrent bilateral inguinal hernia without*11/05/2024 Encounter Status:Closed by LYNN HILL on 11/07/24 [facility] ANES POSTPROC EVALon 025 ANES POSTPROC EVAL HNO ID: [id number] Author: ELKE LEON MD Service: Anesthesiology Author Type: Anesthesiologist Type: Anesthesia Postprocedure Evaluation Filed: 11/05/2024 13:02 Note Text: POST ANESTHESIA EVALUATION NOTE : 1970 Procedure Summary Date: 11/05/24 Room / Location: [place] [address] / [place] Anesthesia Start: 1105 Anesthesia Stop: 1231 Procedure: LAPAROSCOPY SURGICAL REPAIR INITIAL INGUINAL HERNIA WITH TOTAL EXTRA PERITONEAL REPAIR (Bilateral: Groin) Diagnosis: Right inguinal hernia (Right inguinal hernia [K40.90]) Surgeons: Nazanin Lynch MD Responsible Provider: Elke Leon MD Anesthesia Type: general ASA Status: 2 Anesthesia Type: general Airway Type: ETT Last Vitals Vitals Value Taken Time BP 112/76 11/05/24 1300 Temp 36.3 ?C (97.3 ?F) 11/05/24 1228 Pulse 57 11/05/24 1300 Resp 13 11/05/24 1300 SpO2 98 % 11/05/24 1300 Vitals shown include unfiled device data. Post Anesthesia Patient Status Patient Evaluation: PACU. PACU/ICU Patient Condition: stable. Anticipated Disposition: phase 2 then home. Neurological Status: aware and responsive. Pulmonary Status: breathing comfortably on room air Airway Control: returned to baseline unsupported. Cardiovascular Status: stable. Pain Management: clinically adequate - multimodal analgesia pain management approach Postoperative Hydration: acceptable. Intraoperative Events: no significant anesthesia events Post Operative Nausea/Vomiting Status: no significant post operative nausea or vomiting Recommendation: continue current plan of care. Anesthesia Observations No Documentation SIGNATURE: Elke Leon MD PATIENT NAME: Michelle Nieves DATE: November 05, 2024 TIME: 1:02 PM CSN: [id number] [facility] ANES PRE-OPon 11-05-2024 [facility] PRE-OP HNO ID: [id number] Author: JOSE BARILLAS DO Service: Anesthesiology Author Type: Anesthesiologist Type: Anesthesia Preprocedure Evaluation Filed: 11/05/2024 10:30 Note Text: ANESTHESIOLOGY DAY OF SURGERY NOTE : 1970 Procedure Information Date/Time: 11/05/24 1057 Procedure: LAPAROSCOPY SURGICAL REPAIR INITIAL INGUINAL HERNIA WITH TOTAL EXTRA PERITONEAL REPAIR (Right) - LAPAROSCOPY SURGICAL REPAIR INITIAL INGUINAL HERNIA WITH TOTAL EXTRA PERITONEAL REPAIR [[id number]] Location: [place] [address] / [place] Surgeons: Nazanin Lynch MD Estimated body mass index is 24.8 kg/m? as calculated from the following: Height as of 10/28/24: 185.4 cm (6' 1). Weight as of 10/28/24: 85.3 kg (188 lb). Most recent hematocrit and potassium results: Hematocrit 41.6 10/28/2024 Potassium 4.6 10/28/2024 Relevant Problems CARDIO (+) Aortic valve regurgitation GI (+) Gastroesophageal reflux disease I - PHYSICAL EVALUATION AIRWAY Patient intubated: No. Tracheostomy tube not present Mallampati: II. TM distance: >3 FB. Neck ROM: full ROM without neurological symptoms. Mouth opening: adequate. Short neck: no. Thick neck: no DENTAL Dental findings: teeth intact. Additional comments: Bridge on top. II - ANESTHESIA PLAN ASA Score: 2 Anesthetic Plan: general Airway type: ETT NPO Status: adequate Beta Nereyda Monitoring Plan Monitoring plan: standard ASA. Post Procedure Analgesic Plan Postoperative analgesic plan: parenteral or oral opioids, multimodal analgesia and per surgical service. Informed Consent Anesthetic risks, benefits, alternatives, personnel and consent discussed: yes. Patient / Responsible Constitution Party agrees to proceed: yes Patient / Surrogate agrees to blood products: Yes DNR status not reviewed with patient and/or family prior to surgery. Significant changes in the patient condition since the History and Physical, not otherwise documented in primary service progress note: no. Potential Anesthesia issues that may suggest increased risk of complications or contraindication to planned procedure: none. Discussed the possibility of lip / dental damage: yes Vitals Value Taken Time BP 123/58 11/05/24 0931 Pulse Resp 14 11/05/24 0931 Temp 36 ?C (96.8 ?F) 11/05/24 0931 SpO2 99 % 11/05/2431 Facility-Administere d Medications as of 11/05/2024 Medication Dose Route Frequency lidocaine (PF) 10 mg/mL (1 %) 1-2 mg injection (XYLOCAINE) 0.1-0.2 mL INTRADERMAL PRN NaCl 0.9% iv flush bag 20 mL INTRAVENOUS PRN ceFAZolin iv piggyback 2 g in D5W (iso-osmotic) 100 mL (ANCEF) 2 g INTRAVENOUS Pre-Op Once [COMPLETED] acetaminophen 1,000 mg tab(s) (TYLENOL) 1,000 mg ORAL Pre-Op Once [COMPLETED] promethazine 12.5 mg tab(s) (PHENERGAN) 12.5 mg ORAL Pre-Op Once lactated ringers iv infusion 30 mL/hr INTRAVENOUS CONTINUOUS scopolamine (delivers 1 mg over 3 days) 1 Patch (TRANSDERM-SCOP) 1 Patch TRANSDERMAL ONCE scopolamine - VERIFY patch OTHER q 8 H [START ON 11/06/2024] scopolamine - REMOVE PATCH OTHER ONCE Outpatient Medications as of 11/05/2024 Medication Sig Mirtazapine (REMERON) 7.5 mg tablet Take 3.75-7.5 mg by mouth daily at bedtime. Tadalafil (CIALIS) 5 mg tablet Take 5 mg by mouth. MAGNESIUM ORAL Take by mouth once daily. cholecalciferol, vitamin D3, (VITAMIN D3 ORAL) Take by mouth once daily. MULTIVITAMIN ORAL Take by mouth once daily. DOCOSAHEXANOIC ACID/EPA (FISH OIL ORAL) Take by mouth. I have interviewed and examined the patient. I have reviewed the medical record and/or the pre-anesthesia evaluation, pertinent labs, and test results. This contains updated information obtained within 48 hours of Surgery/Procedure. SIGNATURE: Jose Barillas DO PATIENT NAME: Michelle Nieves DATE: November 05, 2024 TIME: 10:29 AM CSN: [id number] [facility] BRIEF OP NOTon 11-05-2024 BRIEF OP NOT HNO ID: [id number] Author: NAZANIN LYNCH MD Service: General Surgery Author Type: Physician Type: Brief Op Note Filed: 11/05/2024 12:24 Note Text: BRIEF OPERATIVE / PROCEDURE NOTE LOG ID: [id number] SURGERY/PROCEDURE DATE: 11/05/2024 INCISION/PROCEDURE START TIME: 11:26 AM INCISION CLOSE/PROCEDURE END TIME: 12:19 PM SURGEON(S)/PROCEDURA LIST(S) AND DINING ROOM ATTENDANT(S): Surgeons and Role: * Nazanin Lynch MD - Primary Physician Dealer Account Manager: Lisset Waddell SURGERY/PROCEDURE(S) : lap TEPP BIH repair with mesh ANESTHESIA: General FINDINGS: see report ESTIMATED BLOOD LOSS: 10 ml SPECIMENS: None COMPLICATIONS: None CLOSURE TECHNIQUE: Primary PRE-OP/PRE-PROCEDURE DIAGNOSIS: RIH POST-OP/POST-PROCEDU RE DIAGNOSIS: BIH # [id number] SIGNATURE: Nazanin Lynch MD PATIENT NAME: Michelle Nieves DATE: November 05, 2024 TIME: 12:20 PM Normal [facility] OPERATIVE NOon 11-05-2024 OPERATIVE NO HNO ID: [id number] Author: NAZANIN LYNCH MD Service: General Surgery Author Type: Physician Type: Operative Report Filed: 11/05/2024 15:03 Note Text: [facility] - Operative Report MICHELLE NIEVES : 1970 AGE: 53. SEX: M PATIENT TYPE: A [place] [facility] [place] [facility] LOCATION: [facility] ATTENDING PHYSICIAN: NAZANIN LYNCH CSN NUMBER: [id number] DATE OF SURGERY/PROCEDURE: 11/05/2024 INCISION/PROCEDURE START TIME: 11:26 a.m. INCISION CLOSE/PROCEDURE END TIME: 12:19 p.m. PREOPERATIVE DIAGNOSIS: Right inguinal hernia. POSTOPERATIVE DIAGNOSIS: Bilateral inguinal hernias. SURGEON: Nazanin Lynch M.D. DINING ROOM ATTENDANT: PA. Renzo SURGERY/PROCEDURE: Laparoscopic total extraperitoneal preperitoneal bilateral inguinal hernia repair with mesh. ANESTHESIA: General anesthesia. BLOOD LOSS: 10 mL. INDICATIONS FOR PROCEDURE: The patient is a 53-year-old gentleman, who presents with a right inguinal hernia. He now presents for laparoscopic repair with mesh. Risks including bleeding, infection, nerve injury, ischemic orchitis, and recurrent hernia were explained, and he would like to proceed. The procedure was performed by myself with assistance. There were no qualified residents or fellow staff available. The education administrative assistant's tasks included camera holding, suture passing, and assistance with closure. DESCRIPTION OF PROCEDURE: The patient was identified and brought to the operating room, placed in supine position. After general anesthesia was obtained, the abdomen was prepped and draped in sterile fashion. An incision was made just below the umbilicus using a 15 blade scalpel. The right anterior rectus sheath was identified and divided just to the right of the midline. The preperitoneal space was then identified. The dissecting balloon was then placed into the preperitoneal space and passed to the level of the pubic bone. This was inflated and visualized during insufflation. It appeared to be in good position. The dissecting balloon was removed and the structural balloon was advanced. The preperitoneal space was then insufflated with CO2 gas to a pressure of 15 mmHg. Upon inspection, there was good dissection from the balloon with minimal bleeding. Two 5 mm trocars were placed in lower midline under direct visualization without complication. Attention was then turned to the right side. The peritoneum was from the lateral wall using the [place] dissectors. Kurt ligament was then from overlying fatty tissue using the [place] dissectors. The hernia sac was then examined. He had a large indirect hernia sac. This was carefully from the cord structures. There was entry into the peritoneum, which is inherent to the procedure and will not cause long-term consequences. A Veress needle was placed in the right mid abdomen to decompress. Once adequate dissection was performed, a medium-sized right-sided 3D mesh was chosen. This was placed into the preperitoneal space. This was tacked medially to Kurt ligament x3, laterally to the abdominal wall, and anteriorly to the abdominal wall using theAbsorbaTack. Attention was then turned to the left side. He indeed had a smaller indirect left inguinal hernia present. The peritoneum was from the lateral wall using blunt dissection. Kurt ligament was from the fatty tissue using the [place] dissector. There was no overlying vein, which was cauterized. The hernia sac was then from the cord structures using blunt dissection. Once adequate dissection was performed, a medium size left-sided Dextile mesh was chosen. This was placed in the preperitoneal space. This was tacked medially to Kurt ligament x2, laterally to the abdominal wall, and anteriorly to the abdominal wall using the AbsorbaTack. The mesh was then held in place and visualized as the pneumoperitoneum was removed. The port sites were injected with 0.25% Marcaine without evidence for bleeding. The fascia was closed using #1 Maxon x2. The incisions were closed with 3-0 Vicryl, 5-0 Vicryl, and Dermabond. All counts were correct at the end of the case. The patient tolerated the procedure well. He was taken to recovery room in good condition. Nazanin Lynch M.D. KED:[id number] /[id number] Normal [facility] CBC W Auto Differential pane l (Bld)on 10-28-2024 Basophils (Bld) [#/Vol] 0.07 10*3/uL Normal <0.11 [facility] Comment on above: Order Comment: Speci men Type: BLOOD SPECIMENOrdering Facility: [facility] Address: [address] [place] [address] Performed By: #### 5 7021-8 ####[facility] [id number] [place] [address] [place] Basophils/100 WBC (Bld) 1.0 % Normal [facility] Comment on above: Order Comment: Speci men Type: BLOOD SPECIMENOrdering Facility: [facility] Address: [address] [place] [address] Performed By: #### 5 7021-8 ####[facility] LABIA [id number] [place] [address] [place] Differential cell count method Nom (Bld) Auto Normal [facility] Comment on above: Order Comment: Speci men Type: BLOOD SPECIMENOrdering Facility: [facility] Address: [address] [place] [address] Performed By: #### 5 7021-8 ####[facility] LABIA [id number] [place] [address] [place] Eosinophils (Bld) [#/Vol] 0.16 10*3/uL Normal <0.46 [facility] Comment on above: Order Comment: Speci men Type: BLOOD SPECIMENOrdering Facility: [facility] Address: [address] [place] [address] Performed By: #### 5 7021-8 ####[facility] LABCLIA [id number] [place] [address] [place] Eosinophils/100 WBC (Bld) 2.3 % Normal [facility] Comment on above: Order Comment: Speci men Type: BLOOD SPECIMENOrdering Facility: [facility] Address: [address] [place] [address] Performed By: #### 5 7021-8 ####[facility] LABIA [id number] [place] [address] [place] Erythrocyte distribution width (RBC) [Ratio] 12.7 % Normal 11.5-15.0 [facility] Comment on above: Order Comment: Speci men Type: BLOOD SPECIMENOrdering Facility: [facility] Address: [address] [place] [address] Performed By: #### 5 7021-8 ####[facility] LABIA [id number] [place] [address] [place] Hematocrit (Bld) [Volume fraction] 41.6 % Normal 39.0-51.0 [facility] Comment on above: Order Comment: Speci men Type: BLOOD SPECIMENOrdering Facility: [facility] Address: [address] [place] [address] Performed By: #### 5 7021-8 ####[facility] LABIA [id number] [place] [address] [place] Hemoglobin (Bld) [Mass/Vol] 13.7 g/dL Normal 13.0-17.0 [facility] Comment on above: Order Comment: Speci men Type: BLOOD SPECIMENOrdering Facility: [facility] Address: [address] [place] [address] Performed By: #### 5 7021-8 ####[facility] LABCLIA [id number] [place] [address] [place] Immature granulocytes (Bld) [#/Vol] 10*3/uL Normal <0.10 [facility] Comment on above: Order Comment: Speci men Type: BLOOD SPECIMENOrdering Facility: [facility] Address: [address] [place] [address] Performed By: #### 5 7021-8 ####[facility] LABCL[facility] [id number] [place] [address] [place] Immature granulocytes/100 WBC (Bld) 0.3 % Normal [facility] Comment on above: Order Comment: Speci men Type: BLOOD SPECIMENOrdering Facility: [facility] Address: [address] [place] [address] Performed By: #### 5 7021-8 ####[facility] LABIA [id number] [place] [address] [place] Lymphocytes (Bld) [#/Vol] 2.60 10*3/uL Normal 1.00-4.00 [facility] Comment on above: Order Comment: Speci men Type: BLOOD SPECIMENOrdering Facility: [facility] Address: [address] [place] [address] Performed By: #### 5 7021-8 ####[facility] LABCL[facility] [id number] [place] [address] [place] Lymphocytes/100 WBC (Bld) 37.2 % Normal [facility] Comment on above: Order Comment: Speci men Type: BLOOD SPECIMENOrdering Facility: [facility] Address: [address] [place] [address] Performed By: #### 5 7021-8 ####[facility] LABCLIA [id number] [place] [address] [place] MCH (RBC) [Entitic mass] 30.4 pg Normal 26.0-34.0 [facility] Comment on above: Order Comment: Speci men Type: BLOOD SPECIMENOrdering Facility: [facility] Address: [address] [place] [address] Performed By: #### 5 7021-8 ####[facility] LABCLIA [id number] [place] [address] [place] MCHC (RBC) [Mass/Vol] 32.9 g/dL Normal 30.5-36.0 [facility] Comment on above: Order Comment: Speci men Type: BLOOD SPECIMENOrdering Facility: [facility] Address: [address] [place] [address] Performed By: #### 5 7021-8 ####[facility] LABIA [id number] [place] [address] [place] MCV (RBC) [Entitic vol] 92.4 fL Normal 80.0-100.0 [facility] Comment on above: Order Comment: Speci men Type: BLOOD SPECIMENOrdering Facility: [facility] Address: [address] [place] [address] Performed By: #### 5 7021-8 ####[facility] LABIA [id number] [place] [address] [place] Monocytes (Bld) [#/Vol] 0.61 10*3/uL Normal <0.87 [facility] Comment on above: Order Comment: Speci men Type: BLOOD SPECIMENOrdering Facility: [facility] Address: [address] [place] [address] Performed By: #### 5 7021-8 ####[facility] LABIA [id number] [place] [address] [place] Monocytes/100 WBC (Bld) 8.7 % Normal [facility] Comment on above: Order Comment: Speci men Type: BLOOD SPECIMENOrdering Facility: [facility] Address: [address] [place] [address] Performed By: #### 5 7021-8 ####[facility] LABCLIA [id number] [place] [address] [place] Neutrophils (Bld) [#/Vol] 3.52 10*3/uL Normal 1.45-7.50 [facility] Comment on above: Order Comment: Speci men Type: BLOOD SPECIMENOrdering Facility: [facility] Address: [address] [place] [address] Performed By: #### 5 7021-8 ####[facility] LABCLIA [id number] [place] [address] [place] Neutrophils/100 WBC (Bld) 50.5 % Normal [facility] Comment on above: Order Comment: Speci men Type: BLOOD SPECIMENOrdering Facility: [facility] Address: [address] [place] [address] Performed By: #### 5 7021-8 ####[facility] LABCLIA [id number] [place] [address] [place] Nucleated RBC (Bld) [#/Vol] 10*3/uL Normal <0.01 [facility] Comment on above: Order Comment: Speci men Type: BLOOD SPECIMENOrdering Facility: [facility] Address: [address] [place] [address] Performed By: #### 5 7021-8 ####[facility] LABCLIA [id number] [place] [address] [place] Nucleated RBC/100 WBC (Bld) [Ratio] 0.0 /100 WBC Normal [facility] Comment on above: Order Comment: Speci men Type: BLOOD SPECIMENOrdering Facility: [facility] Address: [address] [place] [address] Performed By: #### 5 7021-8 ####[facility] LABCLIA [id number] [place] [address] [place] Platelet mean volume (Bld) [Entitic vol] 11.0 fL Normal 9.0-12.7 [facility] Comment on above: Order Comment: Speci men Type: BLOOD SPECIMENOrdering Facility: [facility] Address: [address] [place] [address] Performed By: #### 5 7021-8 ####[facility] LABIA [id number] [place] [address] [place] Platelets (Bld) [#/Vol] 209 10*3/uL Normal 150-400 [facility] Comment on above: Order Comment: Speci men Type: BLOOD SPECIMENOrdering Facility: [facility] Address: [address] [place] [address] Performed By: #### 5 7021-8 ####[facility] LABIA [id number] [place] [address] [place] RBC (Bld) [#/Vol] 4.50 10*6/uL Normal 4.20-6.00 [facility] Comment on above: Order Comment: Speci men Type: BLOOD SPECIMENOrdering Facility: [facility] Address: [address] [place] [address] Performed By: #### 5 7021-8 ####[facility] LABIA [id number] [place] [address] [place] WBC (Bld) [#/Vol] 6.98 10*3/uL Normal 3.70-11.00 [facility] Comment on above: Order Comment: Speci men Type: BLOOD SPECIMENOrdering Facility: [facility] Address: [address] [place] [address] Performed By: #### 5 7021-8 ####[facility] LABIA [id number] [place] [address] [place] Cameron 10-28-2024 MICHAEL Telephone (CASEY) MICHELLE NIEVES ([id number]) 1970 M Date Time Provider Department 10/28/24 KAYLAH CLEMENTS During your visit today, we recorded the following information about you: Kaylah Clements APRN.[place] 10/28/2024 9:00 AM Signed Please request most recent echo and cardiac OV from [facility]. DOS 11/05/2024 Larry Arnold LPN 10/28/2024 9:35 AM Signed ECHO 10/24/22 received and send to be scanned into chart. DUSTIN Barton Kim E, LPN 11/04/2024 11:17 AM Signed spoke with PSS from the chart room. they are scanning it into EPIC now. DUSTIN Barton Kim E, LPN 11/06/2024 8:18 AM Signed ECHO has been scanned into cardiac notes. Allergies As of Date: 10/28/2024 (No Known Allergies) Date Reviewed: 10/28/2024 Reviewed by: Kaylah Clements APRN.CNP - Fully Assessed Reason for Visit: Request Outside Medical Records [[id number]] Prescriptions as of 11/13/2024 - Mirtazapine (REMERON) 7.5 mg tablet Take 3.75-7.5 mg by mouth daily at bedtime. - Tadalafil (CIALIS) 5 mg tablet Take 5 mg by mouth. - MAGNESIUM ORAL Take by mouth once daily. - cholecalciferol, vitamin D3, (VITAMIN D3 ORAL) Take by mouth once daily. - MULTIVITAMIN ORAL Take by mouth once daily. - DOCOSAHEXANOIC ACID/EPA (FISH OIL ORAL) Take by mouth. 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 Synovial cyst of knee [M71.20] 10/16/2024 Segmental and somatic dysfunction [M99.09] 10/16/2024 Osteoarthritis of right knee [M17.11] 04/23/2024 Nocturia [R35.1] 07/24/2023 Insomnia [G47.00] 10/16/2024 Hypogonadism in male [E29.1] 07/24/2023 Gastroesophageal reflux disease [K21.9] 10/16/2024 Fatigue [R53.83] 06/18/2023 Benign prostatic hyperplasia with urinary obstr*10/16/2024 Benign prostatic hyperplasia with lower urinary*07/24/2023 Back pain [M54.9] 10/16/2024 Aortic valve regurgitation [I35.1] 10/16/2024 Altered bowel function [R19.8] 10/16/2024 Acute bronchitis [J20.9] 10/16/2024 Letter Text Encounter Status:Closed by LARRY ARNOLD on 11/13/24 Normal [facility] Comprehensive metabolic 2000 panelon 10-28-2024 Albumin [Mass/Vol] 4.1 g/dL Normal 3.9-4.9 [facility] Comment on above: Order Comment: Speci men Type: BLOOD SPECIMENOrdering Facility: [facility] Address: [address] [place] [address] Performed By: #### 2 4323-8 ####[facility] LABIA [id number] [place] [address] [place] ALP [Catalytic activity/Vol] 83 U/L Normal 38-113 [facility] Comment on above: Order Comment: Speci men Type: BLOOD SPECIMENOrdering Facility: [facility] Address: [address] [place] [address] Performed By: #### 2 4323-8 ####[facility] LABIA [id number] [place] [address] [place] ALT [Catalytic activity/Vol] 13 U/L Normal 10-54 [facility] Comment on above: Order Comment: Speci men Type: BLOOD SPECIMENOrdering Facility: [facility] Address: [address] [place] [address] Performed By: #### 2 4323-8 ####[facility] LABCLIA [id number] [place] [address] [place] Anion gap [Moles/Vol] 9 mmol/L Normal 8-15 [facility] Comment on above: Order Comment: Speci men Type: BLOOD SPECIMENOrdering Facility: [facility] Address: [address] [place] [address] Performed By: #### 2 4323-8 ####[facility] LABCLIA [id number] [place] [address] [place] AST [Catalytic activity/Vol] 21 U/L Normal 14-40 [facility] Comment on above: Order Comment: Speci men Type: BLOOD SPECIMENOrdering Facility: [facility] Address: [address] [place] [address] Performed By: #### 2 4323-8 ####[facility] LABCLIA [id number] [place] [address] [place] Bilirubin [Mass/Vol] 0.3 mg/dL Normal 0.2-1.3 [facility] Comment on above: Order Comment: Speci men Type: BLOOD SPECIMENOrdering Facility: [facility] Address: [address] [place] [address] Performed By: #### 2 4323-8 ####[facility] LABCLIA [id number] [place] [address] [place] Calcium [Mass/Vol] 9.0 mg/dL Normal 8.5-10.2 [facility] Comment on above: Order Comment: Speci men Type: BLOOD SPECIMENOrdering Facility: [facility] Address: [address] [place] [address] Performed By: #### 2 4323-8 ####[facility] LABCLIA [id number] [place] [id number] [place] Chloride [Moles/Vol] 103 mmol/L Normal 98-107 [facility] Comment on above: Order Comment: Speci men Type: BLOOD SPECIMENOrdering Facility: [facility] Address: [address] [place] [address] Performed By: #### 2 4323-8 ####[facility] LABCLIA [id number] [place] [address] [place] CO2 [Moles/Vol] 27 mmol/L Normal 22-30 [facility] Comment on above: Order Comment: Speci men Type: BLOOD SPECIMENOrdering Facility: [facility] Address: [address] [place] [address] Performed By: #### 2 4323-8 ####[facility] LABIA [id number] [address] [place] Creatinine [Mass/Vol] 1.05 mg/dL Normal 0.73-1.22 [facility] Comment on above: Order Comment: Speci men Type: BLOOD SPECIMENOrdering Facility: [facility] Address: [address] [place] [address] Performed By: #### 2 4323-8 ####[facility] LABIA [id number] [address] [place] Creatinine and Glomerular filtration rate.predicted panel (S/P/Bld) 84 mL/min/1.73m??? Normal >=60 [facility] Comment on above: Order Comment: Speci men Type: BLOOD SPECIMENOrdering Facility: [facility] Address: [address] [place] [address] Result Comment: Haylee mated Glomerular Filtration Rate (eGFR) is calculated using the 2020 CKD-EPI creatinine equation. This equation utilizes serum creatinine, sex, and age as parameters. The creatinine assay has traceable calibration to isotope dilution-mass spectrometry. Refer to KDIGO guidelines for clinical interpretation. In patients with unstable renal function, e.g. those with acute kidney injury, the eGFR may not accurately reflect actual GFR. Performed By: #### 2 4323-8 ####[facility] LABCLIA [id number] [place] [address] [place] Glucose [Mass/Vol] 130 mg/dL High 74-99 [facility] Comment on above: Order Comment: Speci men Type: BLOOD SPECIMENOrdering Facility: [facility] Address: [address] [place] [address] Result Comment: The [place] Diabetes Association (ADA) provides guidance for cutoff values for fasting glucose and random glucose. The ADA defines fasting as no caloric intake for at least 8 hours. Fasting plasma glucose results between 100 to 125 mg/dL indicate increased risk for diabetes (prediabetes). Fasting plasma glucose results greater than or equal to 126 mg/dL meet the criteria for diagnosis of diabetes. In the absence of unequivocal hyperglycemia, results should be confirmed by repeat testing. In a patient with classic symptoms of hyperglycemia or hyperglycemic crisis, random plasma glucose results greater than or equal to 200 mg/dL meet the criteria for diagnosis of diabetes. Reference: Standards of Medical Care in Diabetes 2016, [place] [employer]. Diabetes Care. 2016.39(Suppl 1). Performed By: #### 2 4323-8 ####[facility] LABCLIA [id number] [place] [address] [place] Potassium [Moles/Vol] 4.6 mmol/L Normal 3.7-5.1 [facility] Comment on above: Order Comment: Speci men Type: BLOOD SPECIMENOrdering Facility: [facility] Address: [address] [place] [address] Performed By: #### 2 4323-8 ####[facility] LABCLIA [id number] [place] [address] [place] Protein [Mass/Vol] 6.5 g/dL Normal 6.3-8.0 [facility] Comment on above: Order Comment: Speci men Type: BLOOD SPECIMENOrdering Facility: [facility] Address: [address] [id number] Performed By: #### 2 4323-8 ####[facility] LABCLIA [id number] [place] [address] [place] Sodium [Moles/Vol] 139 mmol/L Normal 136-144 [facility] Comment on above: Order Comment: Speci men Type: BLOOD SPECIMENOrdering Facility: [facility] Address: [address] [place] [address] Performed By: #### 2 4323-8 ####[facility] LABCLIA [id number] [address] [place] Urea nitrogen [Mass/Vol] 19 mg/dL Normal 9-24 [facility] Comment on above: Order Comment: Speci men Type: BLOOD SPECIMENOrdering Facility: [facility] Address: [address] [place] [address] Performed By: #### 2 4323-8 ####[facility] LABCLIA [id number] [address] [place] HISTORY PHYSICALon HISTORY PHYSICAL HNO ID: [id number] Author: KAYLAH CLEMENTS APRN.TIRE DUSTER Service: ? Author Type: Nurse Practitioner Type: H&P Filed: 10/30/2024 14:41 Note Text: [facility] HISTORY AND PHYSICAL EXAMINATION SERVICE DATE: 10/28/2024 SERVICE TIME: 9:21 AM PRIMARY CARE PHYSICIAN: Janes Taylor MD, MD Assessment Patient has the following medical conditions which may affect chacha-operative course: Insomnia Assessment: rx nightly Aortic valve regurgitation Assessment: hx, pt states following [facility], records requested Gastroesophageal reflux disease Assessment: diet controlled Benign prostatic hyperplasia with lower urinary tract symptoms Assessment: rx as needed [place] Activity Status Index: METS: Climb a flight of stairs or walk up a hill (5.50 METs) DASI Score: 5.5 Patient denies any chest pain or undue shortness of breath with the above physical activity. Clinical Frailty Scale: 2. Well STOP-Bang Score: Patient over 50 years old Male patient Denies snoring loudly Denies feeling tired, fatigued, or sleepy during the daytime Has not been observed to stop breathing or choking/gasping during sleep Denies having high blood pressure BMI less than or equal to 35 kg/m2 Does not have a large neck STOP-Bang Score: 2 [id number] Score: Age: <65 Sex: male CHF history: No Hypertension history: No Stroke/TIA/thromboem bolism history: No Vascular disease history: No Diabetes history: No [id number] Score: 0 ARISCAT Score: Age: 51-80 Preoperative SpO2: >=96% Respiratory infection in the last month: No Preoperative anemia: No Surgical incision: peripheral Duration of surgery: <2 hrs Emergency procedure: No ARISCAT Score: 3 ANESTHESIA FINDINGS: Intubation History: No history of difficult intubation Significant Anesthesia Considerations: none Airway History: No history of difficult airway I - PHYSICAL EVALUATION AIRWAY Patient intubated: No. Tracheostomy tube not present Mallampati: II. TM distance: >3 FB. Neck ROM: full ROM without neurological symptoms. Mouth opening: adequate. Short neck: no. Thick neck: no Moon present: no Lip Bite Test: I Microretrognathia/Mi cronagthia/Recessed Chin: No DENTAL Dental findings: teeth intact. Additional comments: +crowns. II - ANESTHESIA PLAN Anesthetic Plan: other Beta Nereyda Monitoring Plan Post Procedure Analgesic Plan Prepared for Surgery: optimally prepared for surgery. Labs-reviewed, okay to proceed-JL CONSULTS: Patient does not require consults for optimization at this time Planned Anesthetic: other anesthesia choice The Following Tests/Procedures Have Been Initiated: Orders Placed This Encounter >CBC + AUTO DIFF Standing Status: Future Standing Expiration Date: 01/27/2025 >CMP Standing Status: Future Standing Expiration Date: 01/27/2025 REASON FOR VISIT: Michelle Nieves is a 53 year old male who is scheduled for Procedure(s) with comments: LAPAROSCOPY SURGICAL REPAIR INITIAL INGUINAL HERNIA WITH TOTAL EXTRA PERITONEAL REPAIR (Right) - LAPAROSCOPY SURGICAL REPAIR INITIAL INGUINAL HERNIA WITH TOTAL EXTRA PERITONEAL REPAIR [[id number]] at the request of Dr. Nazanin Lynch for consultation. My final recommendation will be communicated back to the requesting physician by way of shared medical record or letter. Subjective The patient has the following: COVID-19 Immunization Status Overdue - Covid-19 Vaccine ( season) Never done No completion, postpone, frequency change, or communication history exists for this topic. CHIEF COMPLAINT: Pre-op exam HPI: Michelle Nieves is a 53 year old seen for PAC due to scheduled above surgery because [facility]. 10/16/2024, Dr. Nazanin Lynch INTERVAL HISTORY OF PRESENT ILLNESS: Michelle is a 53-year-old gentleman who presents with right groin pain. In June he felt a small lump. This has since increased in size and become more painful with pressure. He wears a belt to help with the discomfort. He can also hear a gurgling sound. He has been taking ibuprofen and reports having some upper abdominal pain. He denies obstructive symptoms. He does feel bloated. He was seen by his primary care and found to have a hernia defect. He presents today for surgical evaluation. REVIEW OF SYSTEMS: General: No weight loss, malaise or fevers. Neurological: No history of TIA's, stroke, [employer] tumor, impaired sensorium, hemiplegia, paraplegia or quadraplegia. No neurological symptoms or problems. Respiratory: No history of current cough or dyspnea, or pneumonia in the past 6 weeks. No history of respiratory/pulmonar y symptoms or problems. Cardiovascular: Positive for: murmur/valvular heart disease Negative for: abdominal aortic aneurysm, AICD/PPM, angina, anticoagulation therapy, arrhythmia, atrial fibrillation, CAD, chest pain, CHF, congenital heart defect, DVT/PE, hyperlipidemi (more content not included)... Normal [facility] CNOVon 10-16-2024 CNOV Office Visit ([facility]) MICHELLE NIEVES ([id number]) 1970 M Date Time Provider Department 10/16/24 8:45 AM NAZANIN LYNCH During your visit today, we recorded the following information about you: Pulse Blood pressure Weight Height 69/minute 118/73 85.3 kg 1.854 m Nazanin Lynch MD 10/16/2024 10:02 AM Signed General Surgery New Patient HANDP PATIENT NAME: Michelle Nieves Assessment ASSESSMENT/PLAN: (K40.90) Right inguinal hernia (primary encounter diagnosis) Michelle presents with a moderate size right inguinal hernia. We discussed the risks of nonsurgical management including incarceration and strangulation. We discussed laparoscopic versus open repair. At this time he would like to proceed with laparoscopic repair with mesh. Risks including bleeding, infection, nerve injury, ischemic orchitis, and recurrent hernia were explained and he would like to proceed. Surgery scheduled for November 05. He was instructed to discontinue NSAID use and monitor his upper abdominal discomfort. Office Visit on 10/16/24 Mirtazapine (REMERON) 7.5 mg tablet SURGICAL REQUEST - ELECTIVE (04/2020) SUBJECTIVE CHIEF COMPLAINT: Patient presents with: Consult: 2nd opinion - R inguinal hernia INTERVAL HISTORY OF PRESENT ILLNESS: Michelle is a 53-year-old gentleman who presents with right groin pain. In June he felt a small lump. This has since increased in size and become more painful with pressure. He wears a belt to help with the discomfort. He can also hear a gurgling sound. He has been taking ibuprofen and reports having some upper abdominal pain. He denies obstructive symptoms. He does feel bloated. He was seen by his primary care and found to have a hernia defect. He presents today for surgical evaluation. HISTORIES: PAST MEDICAL HISTORY Diagnosis Date Acid reflux Acute bronchitis 10/16/2024 Altered bowel function 10/16/2024 Aortic valve regurgitation 10/16/2024 Arthritis Back pain 10/16/2024 Benign prostatic hyperplasia with lower urinary tract symptoms 07/24/2023 Benign prostatic hyperplasia with urinary obstruction 10/16/2024 BPH (benign prostatic hyperplasia) Fatigue 06/18/2023 Gastroesophageal reflux disease 10/16/2024 Hx of seasonal allergies Hypogonadism in male 07/24/2023 Insomnia 10/16/2024 Nocturia 07/24/2023 Osteoarthritis of right knee 04/23/2024 Segmental and somatic dysfunction 10/16/2024 Sinusitis Synovial cyst of knee 10/16/2024 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 MEDICATIONS: Current Outpatient Medications Medication Sig Mirtazapine (REMERON) 7.5 mg tablet Take 3.75-7.5 mg by mouth daily at bedtime. Tadalafil (CIALIS) 5 mg tablet Take 5 mg by mouth. MAGNESIUM ORAL Take by mouth once daily. cholecalciferol, vitamin D3, (VITAMIN D3 ORAL) Take by mouth once daily. MULTIVITAMIN ORAL Take by mouth once daily. DOCOSAHEXANOIC ACID/EPA (FISH OIL ORAL) Take by mouth. No current facility-administere d medications for this visit. FAMILY HISTORY Problem Relation Age of Onset Diabetes Father Social History Tobacco Use Smoking status: Never Smokeless tobacco: Never Vaping Use Vaping status: Never Used Substance Use Topics Alcohol use: Yes Comment: moderate, 1-2 every couple weks Drug use: Never OBJECTIVE PHYSICAL EXAM: BP 118/73 Pulse 69 Ht 6' 1 (1.85m) Wt 188 lb (85.3kg) BMI 24.81 kg/(m2). General: Well developed, well-nourished, in no distress HEENT: Normocephalic, atraumatic. Extraocular movements intact. Sclera are nonicteric. Heart: Regular rate and rhythm, no murmur Lungs: Clear to auscultation, without wheezes Abdomen: Soft, non tender, positive bowel sounds, no masses, moderate size reducible right inguinal hernia, no evidence for left inguinal hernia or umbilical hernia. Rectal: Not evaluated Extremities: No edema, no calf tenderness Neurologic: Alert, oriented, and appropriate. DATA: Diagnostic tests reviewed for today's visit: none Nazanin Lynch MD Allergies As of Date: 10/16/2024 (No Known Allergies) Date Reviewed: 10/16/2024 Reviewed by: Nazanin Lynch MD - Fully Assessed Reason for Visit: Consult [173] Cmt: 2nd opinion - R inguinal hernia Primary Visit Diagnosis:Right inguinal hernia [K40.90] Order(s):SURGICAL REQUEST - ELECTIVE (04/2020) [[id number]] Order #: [id number]: 1 Prescriptions as of 10/16/2024 - Mirtazapine (REMERON) 7.5 mg tablet Take 3.75-7.5 mg by mouth daily at bedtime. - Tadalafil (CIALIS) 5 mg tablet Take 5 mg by mouth. - MAGNESIUM ORAL Take by mouth once daily. - cholecalciferol, vitamin D3, (VITAMIN D3 ORAL) Take by mouth once daily. - (more content not included)... Normal [facility] CNOVon 09-08-2024 [facility]HEL[facility] NIEV[facility] ([id number]) 1970 M Date Time Provider Department 09/08/24 9:15 AM MONROE SHEPPARD [facility] During your visit today, we recorded the following information about you: Temperature Pulse Respiration Blood pressure 97.7 degrees 87/minute 16/minute 122/82 Weight 87.2 kg Monroe Sheppard PA 09/08/2024 9:13 AM Signed This note was created using ThrowMotionriter. Subjective Michelle Nieves is a 53 year old male. HPI 53-year-old male presents for cough, congestion, sinus pressure, fevers, chills, body aches. Patient states he started getting cough and nasal congestion about 3 days ago. He has had fever on Sunday, but that resolved. He has had chills and bodyaches. No chest pain or shortness of breath. No vomiting. He had 1 episode of diarrhea over the weekend. He states he did a home COVID test on Sunday that came back positive. He has been taking DayQuil, Mucinex, Tylenol and Motrin without much improvement in symptoms. PAST MEDICAL HISTORY Diagnosis Date Acid reflux Arthritis Hx of seasonal allergies Sinusitis PAST SURGICAL HISTORY Procedure Laterality Date TONSILLECTOMY HX ALLERGIES Patient has no known allergies. MEDICATIONS Tadalafil (CIALIS) 5 mg tablet Take 5 mg by mouth. MAGNESIUM ORAL Take by mouth once daily. cholecalciferol, vitamin D3, (VITAMIN D3 ORAL) Take by mouth once daily. MULTIVITAMIN ORAL Take by mouth once daily. DOCOSAHEXANOIC ACID/EPA (FISH OIL ORAL) Take by mouth. SAW PALMETTO ORAL Take by mouth once daily. (Patient not taking: Reported on 09/05/2023) acyclovir (ZOVIRAX) 5 % crea Apply 1 application to affected area five times daily. (Patient not taking: Reported on 09/05/2023) acyclovir (ZOVIRAX) 5 % Crea Apply 1 application to affected area five times daily. (Patient not taking: Reported on 09/05/2023) pantoprazole (PROTONIX) 40 mg tablet Take 1 tablet by mouth once daily. (Patient not taking: Reported on 09/05/2023) PANTOPRAZOLE SODIUM (PROTONIX ORAL) Take by mouth. Pt unsure of dosage (Patient not taking: Reported on 09/05/2023) FAMILY HISTORY Problem Relation Age of Onset Diabetes Father Social History Tobacco Use Smoking status: Never Substance Use Topics Alcohol use: Yes Comment: moderate, 1-2 every couple weks Review of Systems Constitutional: Positive for chills and fever. HENT: Positive for congestion. Negative for sore throat. Respiratory: Positive for cough. Negative for shortness of breath. Gastrointestinal: Negative for diarrhea and vomiting. Objective BP 122/82 Pulse 87 Temp 36.5 ?C (97.7 ?F) (Tympanic) Resp 16 Wt 87.2 kg (192 lb 3.9 oz) SpO2 99% BMI 25.36 kg/m? Physical Exam Vitals and nursing note reviewed. Constitutional: General: He is not in acute distress. Appearance: Normal appearance. He is not toxic-appearing. HENT: Right Ear: Tympanic membrane and ear canal normal. Left Ear: Tympanic membrane and ear canal normal. Nose: Congestion present. Mouth/Throat: Mouth: Mucous membranes are moist. Pharynx: Oropharynx is clear. Eyes: Conjunctiva/sclera: Conjunctivae normal. Cardiovascular: Rate and Rhythm: Normal rate and regular rhythm. Pulmonary: Effort: Pulmonary effort is normal. Breath sounds: Normal breath sounds. No wheezing, rhonchi or rales. Skin: General: Skin is warm and dry. Neurological: Mental Status: He is alert. Assessment and Plan ASSESSMENT/PLAN: 1. URI, acute - ICD9: 465.9, ICD10: J06.9 (primary diagnosis) - Discussed viral etiology and rationale for treatment. - Symptomatic treatment with prn analgesia - Supportive care with fluids and rest - The patient may also use OTC cough/cold medications. Rx for Vin Urrutia sent to pharmacy. 2. Suspected COVID-19 virus infection - ICD9: V01.79, ICD10: Z20.822 -Home positive COVID test. -Offered PCR testing, patient declined -Discussed current CDC recommendations for isolation. Diagnosis and treatment plan were discussed and questions were answered to the patient's satisfaction. Pt acknowledged understanding of concepts and follow up plan. Specific signs and symptoms that would indicate the need for higher level of care were discussed in detail warranting prompt ER evaluation. RENZO Ortiz Allergies As of Date: 09/08/2024 (No Known Allergies) Date Reviewed: 09/08/2024 Reviewed by: Karina Drake LPN - Fully Assessed Reason for Visit: Cough [28] Cmt: Cough, chest congestion, sinus and fever x 3 days Primary Visit Diagnosis:URI, acute [J06.9] Other Visit Diagnosis:Suspected COVID-19 virus infection [Z20.822] Order(s):benzonatate (TESSALON PERLE) 100 mg capsuleTake 1 capsule by mouth three times a day as needed.Disp: 21 capsuleRfl: 0 Prescriptions as of 09/08/2024 - benzonatate (TESSALON PERLE) 100 mg capsule Take 1 capsule by mouth three times a day (more content not included)... Normal [facility] Surgery Visit Reporton 07-16 Surgery Visit Report [facility] [address] [place] [address]. [address] [place] [address] OFFICE VISIT Date of Service: 07/16/24 MR#: [id number] Acct: [id number] Name: MICHELLE NIEVES Rep #: [id number] : 1970 Provider: Dr. Elvis kirkland MD Age/Sex: 53/M Location: [facility] Status: Signed Intake Vital Signs 02/08/24 09:08 07/16/24 08:13 Height 6 ft 1 in 6 ft 1 in Weight: 192 lb BMI 25.3 BP 100/65 Blood Pressure Location Lt brachial Position Sitting Respiration 18 Pulse 72 Pulse Source Monitor Temp 97.5 F L Temp Source Temporal Pulse Oximetry (%) 98 Oxygen Delivery Method room air Intake Visit Reasons: INGUINAL HERNIA Chief Complaint: Right inguinal hernia Is patient in pain?: Yes (dull ache ) Allergies Seasonal Allergies: Uncoded Allergy (Verified 07/16/24 08:14) NEEDS FOLLOW-UP Medications ???Medication ???Instructions ???Recorded ???Confirmed ???Type cholecalciferol (vitamin D3) 25 25 mcg PO DAILY 09/07/21 07/16/24 History mcg (1,000 unit) capsule multivitamin 1 tab PO DAILY 09/07/21 07/16/24 History omega-3 fatty acids 1,000 mg 1,000 mg PO DAILY 09/07/21 07/16/24 History capsule (Fish Oil Concentrate) DHEA PO 1XD 10/19/22 07/16/24 History psylium husk PO 1XD 10/19/22 07/16/24 History tadalafil 5 mg tablet (Cialis) 5 mg PO DAILY 02/08/24 07/16/24 History etodolac 500 mg tablet 500 mg PO BID #60 tabs 04/23/24 07/16/24 Rx PFSH Medical History (Updated 07/16/24 @ 08:13 by Antonina Humphries LPN) Right inguinal hernia Arthritis Vocal cord disease Insomnia GERD (gastroesophageal reflux disease) Osteoarthritis Environmental allergies Surgical History H/O right knee surgery H/O knee surgery History of vocal cord polypectomy Fracture, thoracic vertebra Hx of tonsillectomy Family History Other Arthritis Dementia Diabetes Parkinsons Social History adopted: No household members: spouse housing: house number of children: 2 current occupational status: employed 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 Patient has noticed this bulging for about a month. He notices pain especially with heavy lifting. Patient denies symptoms on the opposite side. There is no radiation of symptoms. Patient denies nausea or vomiting or fevers or chills. ROS General General: Yes fatigue; No weight change, appetite, colon cancer, breast cancer or weakness HEENT HEENT: No difficulty swallowing, eye injury, eye surgery, swollen glands or hoarseness Endo Endocrine: No thyroid disease, diabetes mellitus, thyroid cancer, Hair loss, heat intolerance or cold intolerance Skin Skin: No rash or changing moles Musc Musculoskeletal: Yes arthritis; No back problems, rheumatoid arthritis, gout or joint pain Cardio Cardiovascular: No murmur, pacemaker, heart disease, atrial fibrillation, high blood pressure, heart attack, heart stent, palpitations, shortness of breat with exertion or chest pain Psych Psychiatric: No depression, anxiety or hearing voices Resp Respiratory: No shortness of breath, No sleep apnea, No cough, No COPD, No asthma, No emphysema and No wheezing Gastro Gastrointestinal: Yes abdominal pain, No nausea or vomiting, No diarrhea, No constipation, No blood in stool, Yes acid reflux, No hemorrhoids, No ulcers, No gallbladder problem and No black,tarry stools Willie Hematologic: Yes blood thinners, No blood disorders, No bleeding, No anemia and No blood clots Additional Details: fish oil Neuro Neurologic: No numbness, No tingling and No weakness Exam Const General: cooperative Orientation: alert and oriented x3 HENMT Head: normal to inspection Neck Neck: normal visual inspection and full ROM Chest Chest palpation inspection: normal inspection of the chest Resp Effort Inspection: normal respiratory effort Auscultation: clear to auscultation bilaterally Cardio Rate: regular rate Rhythm: regular rhythm GI Inspection: non-distended Palpation: soft, hernia indirect inguinal on the righ (more content not included)... Normal [facility] Comprehensive Metabolic Prof joaquim 07-03-2024 Albumin [Mass/Vol] 3.9 g/dL Normal 3.2-5.0 [facility] Comment on above: Order Comment: Order Date: 07/03/24 Order Info: [id number] - CMP Order Info: [id number] - PSA Performed By: #### L 506.1000, L500.4050, L501.9910 #### [facility] [address] [place], [address] Albumin/Globulin [Mass ratio] 1.2 {ratio} Normal 0.9-2.4 [facility] Comment on above: Order Comment: Order Date: 07/03/24 Order Info: 07-1 - CMP Order Info: [id number] - PSA Performed By: #### L 506.1000, L500.4050, L501.9910 #### [facility] [address] [place], [address] ALK P 74 U/L Normal 45-117 [facility] Comment on above: Order Comment: Order Date: 07/03/24 Order Info: 785- - CMP Order Info: 285-1 - PSA Performed By: #### L 506.1000, L500.4050, L501.9910 #### [facility] [address] [place], [address] ALT [Catalytic activity/Vol] 21 U/L Normal 16-61 [facility] Comment on above: Order Comment: Order Date: 07/03/24 Order Info: 07- - CMP Order Info: 285-1 - PSA Performed By: #### L 506.1000, L500.4050, L501.9910 #### [facility] [address] [place], [address] AST [Catalytic activity/Vol] 21 U/L Normal 15-37 [facility] Comment on above: Order Comment: Order Date: 07/03/24 Order Info: [id number] - CMP Order Info: [id number] - PSA Performed By: #### L 506.1000, L500.4050, L501.9910 #### [facility] [address] [place], [address] Bilirubin [Mass/Vol] 0.90 mg/dL Normal 0.20-1.00 [facility] Comment on above: Order Comment: Order Date: 07/03/24 Order Info: [id number] - CMP Order Info: [id number] - PSA Result Comment: For patients on eltrombopag therapy, use of Dimension [place] TBIL is not recommended. Performed By: #### L 506.1000, L500.4050, L501.9910 #### [facility] [address] [place], [address] BUN/CRE 14.0 RATIO Normal 10-20 [facility] Comment on above: Order Comment: Order Date: 07/03/24 Order Info: 0786-1 - CMP Order Info: [id number] - PSA Performed By: #### L 506.1000, L500.4050, L501.9910 #### [facility] [address] [place], [address] CA,Total 9.1 mg/dL Normal 8.5-10.1 [facility] Comment on above: Order Comment: Order Date: 07/03/24 Order Info: [id number] - CMP Order Info: [id number] - PSA Performed By: #### L 506.1000, L500.4050, L501.9910 #### [facility] [address] [place], [address] Chloride [Moles/Vol] 106 mmol/L Normal 98-107 [facility] Comment on above: Order Comment: Order Date: 07/03/24 Order Info: 0786-1 - CMP Order Info: [id number] - PSA Performed By: #### L 506.1000, L500.4050, L501.9910 #### [facility] [address] [place], [address] CO2 [Moles/Vol] 26.0 mmol/L Normal 21.0-32.0 [facility] Comment on above: Order Comment: Order Date: 07/03/24 Order Info: [id number] - CMP Order Info: 7-1 - PSA Performed By: #### L 506.1000, L500.4050, L501.9910 #### [facility] [address] [place], [address] Creatinine [Mass/Vol] 1.07 mg/dL Normal 0.70-1.30 [facility] Comment on above: Order Comment: Order Date: 07/03/24 Order Info: 07 - CMP Order Info: 2856-09 - PSA Result Comment: The validity of the calculated GFR GFRAA in patients over 70 years has not been determined. Clinical correlation is essential. Performed By: #### L 506.1000, L500.4050, L501.9910 #### [facility] [address] [place], [address] EST GFR - AA 92 mL/min Normal >60 [facility] Comment on above: Order Comment: Order Date: 07/03/24 Order Info: 785-09 - CMP Order Info: 2856-09 - PSA Result Comment: Afri can Lao GFR Calc Performed By: #### L 506.1000, L500.4050, L501.9910 #### [facility] [address] [place], [address] GAP 6 Normal 5-15 [facility] Comment on above: Order Comment: Order Date: 07/03/24 Order Info: 07 - CMP Order Info: [id number] - PSA Performed By: #### L 506.1000, L500.4050, L501.9910 #### [facility] [address] [place], [address] GFR/1.73 sq M.predicted among non-blacks MDRD (S/P/Bld) [Vol rate/Area] 76 mL/min/{1.73_m2} Normal >60 [facility] Comment on above: Order Comment: Order Date: 07/03/24 Order Info: 07 - CMP Order Info: [id number] - PSA Result Comment: Non- GFR Calc Performed By: #### L 506.1000, L500.4050, L501.9910 #### [facility] [address] [place], [address] Globulin (S) [Mass/Vol] 3.3 g/dL Normal 2.2-4.2 [facility] Comment on above: Order Comment: Order Date: 07/03/24 Order Info: 785-09 - CMP Order Info: [id number] - PSA Performed By: #### L 506.1000, L500.4050, L501.9910 #### [facility] [address] [place], [address] Glucose [Mass/Vol] 103 mg/dL Normal 74-106 [facility] Comment on above: Order Comment: Order Date: 07/03/24 Order Info: 785-09 - CMP Order Info: [id number] - PSA Result Comment: Fast ing Glucose result from 100 to 125 mg/dL suggests IMPAIRED HOMEOSTASIS per A.D.A. criteria. Performed By: #### L 506.1000, L500.4050, L501.9910 #### [facility] [address] [place], [address] Potassium [Moles/Vol] 3.5 mmol/L Normal 3.5-5.1 [facility] Comment on above: Order Comment: Order Date: 07/03/24 Order Info: 785-09 - CMP Order Info: [id number] - PSA Performed By: #### L 506.1000, L500.4050, L501.9910 #### [facility] [address] [place], [address] Sodium [Moles/Vol] 138 mmol/L Normal 136-145 [facility] Comment on above: Order Comment: Order Date: 07/03/24 Order Info: 07 - CMP Order Info: [id number] - PSA Performed By: #### L 506.1000, L500.4050, L501.9910 #### [facility] [address] [place], [address] T PROT 7.2 g/dL Normal 6.4-8.2 [facility] Comment on above: Order Comment: Order Date: 07/03/24 Order Info: 0786-1 - CMP Order Info: 2851 - PSA Performed By: #### L 506.1000, L500.4050, L501.9910 #### [facility] [address] [place], [address] Urea nitrogen [Mass/Vol] 15 mg/dL Normal 7-18 [facility] Comment on above: Order Comment: Order Date: 07/03/24 Order Info: 0786-1 - CMP Order Info: [id number] - PSA Performed By: #### L 506.1000, L500.4050, L501.9910 #### [facility] [address] [place], [address] PSA,Total - Annual Screenon 07-03-2024 PSA,TOT SCREEN 0.55 ng/mL Normal 0.00-4.00 [facility] Comment on above: Order Comment: Order Date: 07/03/24 Order Info: 0786-1 - CMP Order Info: [id number] - PSA Result Comment: This test was performed using the TPSA assay method for the [employer] chemistry system. Values obtained with different assay methods cannot be used interchangably. When changing PSA assays in the course of monitoring a patient, additional sequential testing should be carried out to confirm baseline values. Performed By: #### L 506.1000, L500.4050, L501.9910 #### [facility] [address] [place], [address] Vitamin D,25 Hydroxyon 07-03 Vitamin D 25-OH 60.6 ng/mL Normal [facility] Comment on above: Order Comment: Order Date: 07/03/24 Order Info: [id number] - VITD25 Result Comment: Clemencai min D 25(OH) Status Range Deficiency <20 ng/mL (50nmol/L) Insufficiency 20 - 30 ng/mL (50 - 75 nmol/L) Sufficiency 30 - 100 ng/mL (75 - 250 nmol/L) Toxicity >100 ng/mL (>250 nmol/L) Performed By: #### L 506.1000, L500.4050, L501.9910 #### [facility] [place], [address] CNOVon 04-27-2024 CNOV Office Visit (UCWSTR) MICHELLE NIEVES ([id number]) 1970 M Date Time Provider Department 04/27/24 10:30 AM MICHELLE RASMUSSEN WS During your visit today, we recorded the following information about you: Temperature Pulse Respiration Blood pressure 98.1 degrees 70/minute 16/minute 102/64 Weight 86.1 kg Michelle Rasmussen PA-C 04/27/2024 11:01 AM Signed This note was created using [employer]Motion[employer]. Subjective Michelle Nieves is a 53 year old male. HPI presents with an 8-day history of a rash on the left ankle from unknown cause. He does not believe he was bit by an insect or exposed to any poison ying. The rash is localized at the ankle. He began applying topical triamcinolone that was given to him by his brother. He also reports a 6-day history of tingling of the right arm beginning in the shoulder and ending at the wrist. He reports that he works out frequently and has been doing a lot of push-ups he feels this may have caused his right arm symptoms. He reports that his orthopedic physician called in a steroid prescription for him. He has not picked it up or began the medication yet. He plans to do so today. Patient reports receiving a cortisone injection of the right knee on 04/23/2024. PAST MEDICAL HISTORY No date: Acid reflux No date: Arthritis No date: Hx of seasonal allergies No date: Sinusitis PAST SURGICAL HISTORY No date: TONSILLECTOMY HX ALLERGIES Patient has no known allergies. MEDICATIONS Tadalafil (CIALIS) 5 mg tablet Take 5 mg by mouth. MAGNESIUM ORAL Take by mouth once daily. cholecalciferol, vitamin D3, (VITAMIN D3 ORAL) Take by mouth once daily. MULTIVITAMIN ORAL Take by mouth once daily. DOCOSAHEXANOIC ACID/EPA (FISH OIL ORAL) Take by mouth. SAW PALMETTO ORAL Take by mouth once daily. (Patient not taking: Reported on 09/05/2023) acyclovir (ZOVIRAX) 5 % crea Apply 1 application to affected area five times daily. (Patient not taking: Reported on 09/05/2023) acyclovir (ZOVIRAX) 5 % Crea Apply 1 application to affected area five times daily. (Patient not taking: Reported on 09/05/2023) pantoprazole (PROTONIX) 40 mg tablet Take 1 tablet by mouth once daily. (Patient not taking: Reported on 09/05/2023) PANTOPRAZOLE SODIUM (PROTONIX ORAL) Take by mouth. Pt unsure of dosage (Patient not taking: Reported on 09/05/2023) FAMILY HISTORY Problem Relation Age of Onset Diabetes Father Social History Tobacco Use Smoking status: Never Substance Use Topics Alcohol use: Yes Comment: moderate, 1-2 every couple weks Review of Systems Respiratory: Negative for chest tightness and shortness of breath. Cardiovascular: Negative for chest pain. Musculoskeletal: Negative for arthralgias, back pain, joint swelling, neck pain and neck stiffness. Skin: Positive for rash. Neurological: Negative for dizziness, weakness, light-headedness and headaches. Reports tingling of the right arm, see HPI All other systems reviewed and are negative. Objective BP 102/64 Pulse 70 Temp 36.7 ?C (98.1 ?F) Resp 16 Wt 86.1 kg (189 lb 13.1 oz) SpO2 99% BMI 25.04 kg/m? Physical Exam Vitals and nursing note reviewed. Constitutional: Appearance: Normal appearance. Cardiovascular: Rate and Rhythm: Normal rate and regular rhythm. Pulses: Normal pulses. Heart sounds: Normal heart sounds. Pulmonary: Effort: Pulmonary effort is normal. Breath sounds: Normal breath sounds. Abdominal: General: Bowel sounds are normal. Musculoskeletal: General: No swelling, tenderness, deformity or signs of injury. Normal range of motion. Comments: Right upper extremity: Full pain-free range of range of motion of the head and neck and right arm. Proximal motor strength at 5/5 equipment superintendent strength 5/5 sensation is intact in all dermatomes. Neer's test is negative. Fine motor skills intact. Skin: General: Skin is warm. Findings: Erythema, lesion and rash present. Comments: Left ankle: 6 cm diameter circular erythematous rash on the anterior lateral aspect of the ankle. The lesion is warm and painful to the touch. There is no streaking. Neurological: General: No focal deficit present. Mental Status: He is alert. Psychiatric: Mood and Affect: Mood normal. Assessment and Plan ASSESSMENT/PLAN: 1. Cellulitis of skin - ICD9: 682.9, ICD10: L03.90 - Begin treatment with Cephalaxin (Keflex) - No lymphangetic streaking, this was defined for patient to watch for and to seek medical care immediately if appears - CEPHALEXIN 500 MG TABLET Patient was instructed on the use of cephalexin. Continue the triamcinolone for the left ankle. Begin the steroid as prescribed by orthopedics. Follow-up with Ortho if no relief of symptoms. Michelle Rasmussen PA-C Allergies As of Date: 04/27/2024 (No Known Allergies) Date Reviewed: 04/27/2024 Reviewed by: Michelle Rasmussen PA-C - Fully Assessed Reason for Vis (more content not included)... Normal [facility] Orthopedic Visit Reporton Orthopedic Visit Report [facility] [address] [place] [address] OFFICE VISIT Date of Service: 04/23/24 MR#: [id number] Acct: [id number] Name: MICHELLE NIEVES Rep #: [id number] : 1970 Provider: Dr. Hung rajput DO Age/Sex: 53/M [place] [facility] Status: Signed Intake Vital Signs 02/08/24 09:08 Height 6 ft 1 in Weight: 194 lb BMI 25.6 Intake Visit Reasons: RIGHT KNEE Chief Complaint: 3rd Euflexxa Injection - Right Knee Accompanied by: Self Is patient in pain?: Yes Pain scale (1-10): 3 Allergies Seasonal Allergies: Uncoded Allergy (Verified 04/16/24 11:35) NEEDS FOLLOW-UP [facility] Medical History Arthritis Vocal cord disease Insomnia GERD (gastroesophageal reflux disease) Osteoarthritis Environmental allergies Surgical History H/O right knee surgery H/O knee surgery History of vocal cord polypectomy Fracture, thoracic vertebra Hx of tonsillectomy Family History Other Arthritis Dementia Diabetes Parkinsons Social History adopted: No household members: spouse housing: house number of children: 2 current occupational status: employed 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: Yes Smoking Status: Never smoker alcohol intake: current alcohol intake frequency: holidays/special occasions only substance use type: does not use diet: vegetarian well-balanced diet: daily or most days caffeine: Yes eating out: 1-3 times/week during the past year weight has: remained stable what type of physical activity do you participate in: running and weight training frequency: 3-4 times per week nighat/anglican: Gnosticism seatbelt use: always do you feel safe at home: Yes HPI RIGHT KNEE Details: This documentation accurately reflects the service provided and the decisions made by me, Dr. Hung Clay, DO 04/23/24 0758. Part of today???s visit was documented by [ ], acting as scribe. MICHELLE NIEVES is a 53 year old M here today for 3rd Euflexxa injection Right knee. Patient has no reactions to the other two injections. Ortho Exam General General: Yes no acute distress Neurologic: Yes alert and Yes oriented x3 Psychologic: Yes reasonable and appropriate Right Knee Skin/Wound: Yes CDI, No erythema and No ecchymosis Knee ROM: Yes ROM-Extension -20 to 0 and Yes ROM-Flexion 0-140 (103) Examination: No Med jt line tenderness, No Lat jt line tenderness, Yes Crepitus, No Trung's Test and Yes Hussein's Stability: NML: Anterior Drawer, NML: Posterior Drawer, NML: Valgus 0, NML: Valgus 30, NML: Varus 0 and NML: Varus 30 Patella Grind: Yes KNEE: FLEX 130 with crepitation faint soft tissue swelling faint joint effusion no patellar instability Anterior knee pain with terminal flexion Office Procedures Euflexxa Procedure Details:: Obtained consent for injection. Under sterile conditions, injected the patients Right knee with 2ml Euflexxa injection 3rd injection. The patient tolerated the injection well without any noted complication. Patient should call our office if redness develops, pain worsens or if they have any concerns. Is this Buy Bill?: Yes Office Meds Euflexxa 10 mg/mL (mw 2.4-3.6 million) intra-articular syringe Performing Provider: Hung Clay DO Performing Location: [facility] Administered by: Hung Clay DO on 04/23/24 14:38 Dose Route Admin Location Dispensed Lot Number Expiration Date [facility] Man ufacturer 20 mg intra-articular Right knee 2 mL [id number] 02/15/25 [address]-6 [employer] Supplemental Info 01/25/2024 MRI report [facility]: Lateral compartment failure with progressed class IV chondromalacia and degenerated posterior medial meniscus root with moderate meniscal extrusion. Unchanged class IV patellofemoral compartment chondromalacia with moderate osteoarthrosis, progressed severe mucoid degeneration of the cruciate ligaments. Coding Level of Care Code Off vis,est,level 3 Diagnoses Primary osteoarthritis of right knee M17.11 Osteoarthritis type: primary CPT Codes Euflexxa Procedure ([id number]) Assessment and Plan Assessment and Plan (1) Right knee DJD: Status: Acute Qualifiers: Osteoarthritis type: primary Qualified Code(s): M17.11 - Unilateral primary osteoarthritis, right knee Orders: Orders Euflexxa Injection Today M17.11 - Unilateral primary osteoarthritis, right knee Medications: New etodolac Do not take in conjunction with other NSAID. Tylenol is okay 500 mg PO BID 60 tabs 0RF Plan Michelle received his third Euflexxa injection today. He (more content not included)... Normal [facility] Orthopedic Visit Reporton Orthopedic Visit Report [facility] [address] [place] [address] [address] [place] [address] OFFICE VISIT Date of Service: 04/16/24 MR#: [id number] Acct: [id number] Name: MICHELLE NIEVES Rep #: [id number] : 1970 Provider: Dr. Hung rajput DO Age/Sex: 53/M [place] [facility] Status: Signed Intake Vital Signs 02/08/24 09:08 Height 6 ft 1 in Weight: 194 lb BMI 25.6 Intake Visit Reasons: RIGHT KNEE Chief Complaint: 2nd Euflexxa Injection - Right Knee Accompanied by: Self Is patient in pain?: Yes Allergies Seasonal Allergies: Uncoded Allergy (Verified 04/16/24 11:35) NEEDS FOLLOW-UP Medications ???Medication ???Instructions ???Recorded ???Confirmed ???Type cholecalciferol (vitamin D3) 25 25 mcg PO DAILY 09/07/21 04/16/24 History mcg (1,000 unit) capsule multivitamin 1 tab PO DAILY 09/07/21 04/16/24 History omega-3 fatty acids 1,000 mg 1,000 mg PO DAILY 09/07/21 04/16/24 History capsule (Fish Oil Concentrate) DHEA PO 1XD 10/19/22 04/16/24 History psylium husk PO 1XD 10/19/22 04/16/24 History tadalafil 5 mg tablet (Cialis) 5 mg PO DAILY 02/08/24 04/16/24 History PFSH Medical History Arthritis Vocal cord disease Insomnia GERD (gastroesophageal reflux disease) Osteoarthritis Environmental allergies Surgical History H/O right knee surgery H/O knee surgery History of vocal cord polypectomy Fracture, thoracic vertebra Hx of tonsillectomy Family History Other Arthritis Dementia Diabetes Parkinsons Social History adopted: No household members: spouse housing: house number of children: 2 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 occupational status: employed 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: Yes Smoking Status: Never smoker alcohol intake: current alcohol intake frequency: holidays/special occasions only substance use type: does not use diet: vegetarian well-balanced diet: daily or most days caffeine: Yes eating out: 1-3 times/week during the past year weight has: remained stable what type of physical activity do you participate in: running and weight training frequency: 3-4 times per week nighat/anglican: Gnosticism seatbelt use: always do you feel safe at home: Yes HPI RIGHT KNEE Details: This documentation accurately reflects the service provided and the decisions made by me, Dr. Hung Clay DO 04/16/24 0755. Part of today???s visit was documented by Roopa Stuart ATC, acting as scribe. MICHELLE NIEVES is a 53 year old M here today for right knee 2nd Euflexxa injection. Patient states he was down on his knees working today and noticed it did not bother him as much. Patient denies any reactions or concerns from the first injection but did state it bled a lot from the first injection. Ortho Exam General General: Yes no acute distress Neurologic: Yes alert and Yes oriented x3 Psychologic: Yes reasonable and appropriate Right Knee Skin/Wound: Yes CDI, No erythema and No ecchymosis Knee ROM: Yes ROM-Extension -20 to 0 and Yes ROM-Flexion 0-140 (103) Examination: No Med jt line tenderness, No Lat jt line tenderness, Yes Crepitus, No Trung's Test and Yes Hussein's Stability: NML: Anterior Drawer, NML: Posterior Drawer, NML: Valgus 0, NML: Valgus 30, NML: Varus 0 and NML: Varus 30 Patella Grind: Yes KNEE: FLEX 130 with crepitation faint soft tissue swelling faint joint effusion no patellar instability Anterior knee pain with terminal flexion Office Procedures Euflexxa Procedure Details:: Obtained consent for injection. Under sterile conditions, injected the patients right knee with 2nd Euflexxa injection. The patient tolerated the injection well without any noted complication. Patient should call our office if redness develops, pain worsens or if they have any concerns. Is this Buy Bill?: Yes Office Meds Euflexxa 10 mg/mL (mw 2.4-3.6 million) intra-articular syringe Performing Provider: Hung Clay DO Performing Location: [facility] Administered by: Hung Clay DO on 04/16/24 11:39 Dose Route Admin Location Dispensed Lot Number Expiration Date [place] Man ufacturer 20 mg intra-articular Right Knee 2 mL [id number] 02/15/25 [address]-8 [employer] Supplemental Info 01/25/2024 MRI report [facility]: Lateral compartment failure with progressed class IV chondromalacia and degenerated posterior medial meniscus root with moderate meniscal extrusion. Unchanged class IV patellofemoral compartment chondromalacia with moderate osteoarthrosis, progressed severe mucoid degeneration of the cruciate ligaments. Coding Level of Care Code Off (more content not included)... Normal [facility] Orthopedic Visit Reporton Orthopedic Visit Report [facility] [address] [place] [address] [address] [place] [address] OFFICE VISIT Date of Service: 04/09/24 MR#: [id number] Acct: [id number] Name: MICHELLE NIEVES Rep #: [id number] : 1970 Provider: Dr. Hung rajput, Age/Sex: 53/M Location[place] [facility] Status: Signed Intake Vital Signs 02/08/24 09:08 Height 6 ft 1 in Weight: 194 lb BMI 25.6 Intake Visit Reasons: RIGHT KNEE Chief Complaint: 1st Euflexxa Injection - Right Knee Accompanied by: Self Is patient in pain?: Yes Allergies Seasonal Allergies: Uncoded Allergy (Verified 04/09/24 11:30) NEEDS FOLLOW-UP Medications ???Medication ???Instructions ???Recorded ???Confirmed ???Type cholecalciferol (vitamin D3) 25 25 mcg PO DAILY 09/07/21 04/09/24 History mcg (1,000 unit) capsule multivitamin 1 tab PO DAILY 09/07/21 04/09/24 History omega-3 fatty acids 1,000 mg 1,000 mg PO DAILY 09/07/21 04/09/24 History capsule (Fish Oil Concentrate) DHEA PO 1XD 10/19/22 04/09/24 History psylium husk PO 1XD 10/19/22 04/09/24 History tadalafil 5 mg tablet (Cialis) 5 mg PO DAILY 02/08/24 04/09/24 History PFSH Medical History Arthritis Vocal cord disease Insomnia GERD (gastroesophageal reflux disease) Osteoarthritis Environmental allergies Surgical History H/O right knee surgery H/O knee surgery History of vocal cord polypectomy Fracture, thoracic vertebra Hx of tonsillectomy Family History Other Arthritis Dementia Diabetes Parkinsons Social History adopted: No household members: spouse housing: house number of children: 2 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 occupational status: employed 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: Yes Smoking Status: Never smoker alcohol intake: current alcohol intake frequency: holidays/special occasions only substance use type: does not use diet: vegetarian well-balanced diet: daily or most days caffeine: Yes eating out: 1-3 times/week during the past year weight has: remained stable what type of physical activity do you participate in: running and weight training frequency: 3-4 times per week nighat/anglican: Gnosticism seatbelt use: always do you feel safe at home: Yes HPI RIGHT KNEE Details: This documentation accurately reflects the service provided and the decisions made by me, Dr. Hung Clay, DO 04/09/24 0847. Part of today???s visit was documented by Roopa Stuart ATC, acting as scribe. MICHELLE NIEVES is a 53 year old M here today for right knee 1st Euflexxa injection. Patient states he is only having a little bit of knee pain today. Patient states the knee pain has stayed the same since the last visit. Ortho Exam General General: Yes no acute distress Neurologic: Yes alert and Yes oriented x3 Psychologic: Yes reasonable and appropriate Right Knee Skin/Wound: Yes CDI, No erythema and No ecchymosis Knee ROM: Yes ROM-Extension -20 to 0 and Yes ROM-Flexion 0-140 (103) Examination: No Med jt line tenderness, No Lat jt line tenderness, Yes Crepitus, No Trung's Test and Yes Hussein's Stability: NML: Anterior Drawer, NML: Posterior Drawer, NML: Valgus 0, NML: Valgus 30, NML: Varus 0 and NML: Varus 30 Patella Translation: 1 Patella Grind: Yes KNEE: FLEX 130 with crepitation faint soft tissue swelling faint joint effusion no patellar instability Anterior knee pain with terminal flexion Left Knee Patella Translation: 1 Office Procedures Euflexxa Procedure Details:: Obtained consent for injection. Under sterile conditions, injected the patients right knee with 1st Euflexxa injection. The patient tolerated the injection well without any noted complication. Patient should call our office if redness develops, pain worsens or if they have any concerns. Is this Buy Bill?: Yes Office Meds Euflexxa 10 mg/mL (mw 2.4-3.6 million) intra-articular syringe Performing Provider: Hung Clay DO Performing Location: [facility] Administered by: Hung Clay DO on 04/09/24 11:35 Dose Route Admin Location Dispensed Lot Number Expiration Date [employer] Man ufacturer 20 mg intra-articular Right Knee 2 mL [id number] 02/15/25 [address]-4 [employer] Supplemental Info 01/25/2024 MRI report [facility]: Lateral compartment failure with progressed class IV chondromalacia and degenerated posterior medial meniscus root with moderate meniscal extrusion. Unchanged class IV patellofemoral compartment chondromalacia with moderate osteoarthrosis, progressed severe mucoid degeneration of the cruciate ligaments. Coding Level of Care Code Off vis,est,level 3 (more content not included)... Normal [facility] ESTRADIOL FREE AND TOTALon 0 02-29-2024 ESTRADIOL ([facility]) 8 pg/mL Normal < OR = 29 [facility] Comment on above: Result Comment: This test was developed and its analytical performance characteristics have been determined by [employer]. It has not been cleared or approved by FDA. This assay has been validated pursuant to the CLIA regulations and is used for clinical purposes. Test performed by [employer] [address] [place] [id number] [employer] Operator: Jess Watters MD,PHD,TONYA Test Reported by Ricardo Browne, [employer] [address]und[address] [place], [address] [place], [place] Wilber Majano M.D., Ph.D., Director of Laboratories , CLIA [id number] Performed By: #### E STFT #### MAJO ROBLES ([id number]) [address] [facility] [place], [place] ESTRADIOL FREE 0.17 pg/mL Normal [facility] Comment on above: Result Comment: Ref. range: ADULTS: < OR = 0.45 Performed By: #### E STFT #### MAJO ROBLES ([id number]) [address] [facility] [address] [place] Testosterone Free/Testostero ne.total [Mass fraction]on 02-29-2024 Testosterone [Mass/Vol] 348 ng/dL Normal 250-1100 U [facility] Comment on above: Result Comment: For additional information, please refer to http://education.Sqor Sports/faq/ RlqknUkgulquoqjuaJICWKBXHA211 (This link is being provided for informational/ educational purposes only.) This test was developed and its analytical performance characteristics have been determined by [facility] [place], [place]. It has not been cleared or approved by the U.S. Food and Drug Administration. This assay has been validated pursuant to the CLIA regulations and is used for clinical purposes. Performed By: #### 1 5432-8 #### MAJO ROBLES ([id number]) [address] [facility] [address] [place] Testosterone Free [Mass/Vol] 42.1 pg/mL Normal 35.0-155.0 [facility] Comment on above: Result Comment: This test was developed and its analytical performance characteristics have been determined by [facility] [place]. It has not been cleared or approved by the U.S. Food and Drug Administration. This assay has been validated pursuant to the CLIA regulations and is used for clinical purposes. Performed By: #### 1 5432-8 #### QUEST TRAVIS ([id number]) [address] [facility] [address] [place], [place] Prostate specific Agon 12-06 Prostate specific Ag [Mass/Vol] 0.73 ng/mL Normal <=4.00 [facility] Comment on above: Order Comment: The F DA requires that the method used for PSA assay be reported to the physician. Values obtained with different assay methods must not be used interchangeably. This test was performed at [facility] using the [employer] PSA assay is a two-site immunoenzymatic sandwich assay. The assay is approved for measurement of prostate-specific antigen (PSA)in serum and may be used in conjunction with a digital rectal examination in men 50 years and older as an aid in detection of prostate cancer. 9-Qpboa-oihccnbpx inhibitors (e.g. Proscar, Finasteride, Avodart, Dutasteride and Mouna) for the treatment of BPH have been shown to lower PSA levels by an average of 50% after 6 months of treatment. Performed By: #### 2 857-1 #### HAROLDO SAMS ([id number]) [facility] ([facility]) [address] [place] [address] Testosteroneon 12-07-2023 Testosterone [Mass/Vol] 633 ng/dL Normal 240-1000 U [facility] Comment on above: Order Comment: Nandr olone decanoate, 11 Beta-hydroxytestosterone, androstenedione, testosterone propionate and 60-ecgi-gjxzynufzugu strongly cross react with this test method. Biotin interference may cause falsely elevated results. Patients taking a Biotin dose of up to 5 mg/day should refrain from taking Biotin for 24 hours before sample collection. Providers may contact their local laboratory for further information. Performed By: #### 2 986-8 #### ISABELA Patel ([id number]) [facility] ([facility]) [id number] [place] [address] Absolute lymphocyte countOrd ered By: Abdoul Horn on 09-06-2023 Lymphocytes Auto (Unsp spec) [#/Vol] 2.41 10*3/uL 0.83-4.51 [facility] Basophil percentageOrdered B y: Abdoul Horn on 09-06-2023 Basophils/100 WBC (Bld) 0.9 % 0-1 [facility] Chloride [Moles/Vol] 106 mmol/L 98-107 [facility] Eosin[facility]/100 WBC (Bld) 2.2 % 0-5 [facility] Glucose [Mass/Vol] 118 mg/dL 74-106 [facility] Comment on above: Fasting Glucose resu lt from 100 to 125 mg/dL suggests IMPAIRED HOMEOSTASIS per A.D.A. criteria. Neutrophils (Bld) [#/Vol] 3.6 10*3/uL 2.0-7.7 [facility] Neutrophils/100 WBC (Bld) 52.3 % 47-70 [facility] Potassium [Moles/Vol] 4.1 mmol/L 3.5-5.1 [facility] Sodium [Moles/Vol] 137 mmol/L 136-145 [facility] WBC (Bld) [#/Vol] 6.9 10*3/uL 4.4-11.0 [facility] Blood erythrocytes count (nu mber/volume)Ordered By: Abdoul Horn on 09-06-2023 RBC (Bld) [#/Vol] 4.39 10*6/uL 4.6-6.2 [facility] Blood hemoglobin measurement (mass/volume)Ordered By: Abdoul Horn on 09-06-2023 Hemoglobin (Bld) [Mass/Vol] 13.8 g/dL 13.0-16.5 [facility] Blood lymphocytes/100 leukoc ytesOrdered By: Abdoul Horn on 09-06-2023 Lymphocytes/100 WBC (Bld) 35.2 % 19-41 [facility] Blood monocytes/100 leukocyt esOrdered By: Abdoul Horn on 09-06-2023 Monocytes/100 WBC (Bld) 9.1 % 0-10 [facility] Blood platelet mean volumeOr dered By: Abdoul Horn on 09-06-2023 Platelet mean volume (Bld) [Entitic vol] 10.8 fL 6.2-12.0 [facility] Determination of erythrocyte mean corpuscular volume (MCV)Ordered By: Abdoul Horn on 09-06-2023 MCV (RBC) [Entitic vol] 94.3 fL 80-94 [facility] Hematocrit Auto (Bld) [Volum e fraction]Ordered By: Abdoul Horn on 09-06-2023 Hematocrit (Bld) [Volume fraction] 41.4 % 40-54 [facility] Laboratory - Chemistry and C hemistry - challengeOrdered By: Abdoul Horn on 09-06-2023 CO2 [Moles/Vol] 30.0 mmol/L 21.0-32.0 [facility] Urea nitrogen/Creatinine [Mass ratio] 16.8 mg/mg 10-20 [facility] Laboratory - Hematology and Cell countsOrdered By: Abdoul Horn on 09-06-2023 Erythrocyte distribution width (RBC) [Entitic vol] 43.7 fL 35.1-43.9 [facility] Erythrocyte distribution width (RBC) [Ratio] 12.5 % 11.6-14.6 [facility] Immature granulocytes/100 WBC (Bld) 0.300 % 0.0-0.9 [facility] Comment on above: IG% - Immature Granu locytes (promyelocytes, myelocytes and metamyelocytes) > 1% indicates that a LEFT SHIFT is Present. MCH (RBC) [Entitic mass] 31.4 pg 27.0-32.0 [facility] Nucleated RBC/100 WBC (Bld) [Ratio] 0 % 0-5 [facility] MCHC Auto (RBC) [Mass/Vol]Or dered By: Abdoul Horn on 09-06-2023 MCHC (RBC) [Mass/Vol] 33.3 g/dL 32-36 [facility] No Panel InformationOrdered By: Abdoul Horn on 09-06-2023 Estimated GFR (MDRD) Amer 87 mL/min >60 [facility] Comment on above: GFR Calc Estimated GFR (MDRD) Non-Af Amer 72 mL/min >60 [facility] Comment on above: Non- GFR Calc Platelets bldOrdered By: Bubba Horn on 09-06-2023 Platelets (Bld) [#/Vol] 188 10*3/uL 150-450 [facility] Serum or plasma calcium thea urement (mass/volume)Ordered By: Abdoul Horn on 09-06-2023 Calcium [Mass/Vol] 8.6 mg/dL 8.5-10.1 [facility] Serum or plasma creatinine m easurement (mass/volume)Ordered By: Abdoul Horn on 09-06-2023 Creatinine [Mass/Vol] 1.13 mg/dL 0.70-1.30 [facility] Comment on above: The validity of the calculated GFR & GFRAA in patients over 70 years has not been determined. Clinical correlation is essential. Serum or plasma urea nitroge n measurement (mass/volume)Ordered By: Abdoul Horn on 09-06-2023 Urea nitrogen [Mass/Vol] 19 mg/dL 7-18 [facility] Thin prep Papanicolaou smear with manual screeningOrdered By: Abdoul Horn on 09-06-2023 Thin prep Papanicolaou smear with manual screening 1 5-15 [facility] Basophil percentageOrdered B y: JESSI Ruvalcaba on 06-12-2023 Testosterone [Mass/Vol] 432.19 ng/dL [facility] Comment on above: CENTRAL 90% REFERENC E RANGES MALE AGE <50 197.44 - 669.58 ng/dL MALE AGE > or = 50 187.72 - 684.19 ng/dL FEMALE AGE <50 8.38 - 35.01 ng/dL FEMALE AGE > or = 50 <7.00 - 35.92 ng/dL Effective as of 04/19/21 Blood hemoglobin measurement (mass/volume)Ordered By: JESSI Ruvalcaba on 06-12-2023 Hemoglobin (Bld) [Mass/Vol] 13.9 g/dL 13.0-16.5 [facility] Hematocrit Auto (Bld) [Volum e fraction]Ordered By: JESSI Ruvalcaba on 06-12-2023 Hematocrit (Bld) [Volume fraction] 42.0 % 40-54 [facility] No Panel InformationOrdered By: JESSI Ruvalcaba on 06-12-2023 Prostate Specific Antigen Total 0.44 ng/mL 0.0-4.0 [facility] Comment on above: This test was perfor med using the TPSA assay method for the[employer] chemistry system. Values obtained with differentassay methods cannot be used interchangably.When changing PSA assays in the course of monitoring apatient, additional sequential testing should be carriedout to confirm baseline values. Office Visit (Urology)on Follow-up visit Diagnoses/Problems Assessed Benign prostatic hyperplasia with urinary obstruction and other lower urinary tract symptoms (600.21) (N40.1,N13.8) Nocturia (788.43) (R35.1) History of Tonsillectomy with adenoidectomy No pertinent family history : Mother, Father Never smoked tobacco (V49.89) (Z78.9) Fatigue (780.79) (R53.83) Orders SocHx: Never smoked tobacco Tobacco Use Screening; Status:Complete; Done: 06Jun2023 Perform:Not Applicable;Ordered; For:SocHx: Never smoked tobacco; Ordered By:Wendie Treadwell; Patient Discussion/Summary All available PSA values reviewed, Options discussed. Questions answered. New PSA ordered Diet changes for prostate health discussed and educational information given. Pros/Cons of prostate health supplements discussed. Treatment options for LUTS reviewed Discussed timed voiding. Discussed fluid and caffeine intake Cialis 5mg Rx given pros/cons of Testosterone replacement reviewed. Replacement options discussed. Questions answered. Available levels reviewed. Xyosted 100mg Rx given F/U 6-8 weeks with Labs Chief Complaint frequency History of Present IllnessPatient is here to establish as a new patient to discuss Testosterone replacement, has never been on testosterone replacement..Testost erone was 390 (07/15).. Patient complains of fatigue and is irritable. Libido is diminished. ...Patient also complains of frequency at night. Was previously taking Flomax but stopped due to side effects..Chronic BPH with LUTs, sx are chronic..PSA 0.48 (07/15) . ED is not an issue Review of Systems Constitutional: No fever, No chills Eye: negative Respiratory: No shortness of breath, No cough. Cardiovascular: No chest pain Gastrointestinal: No nausea Genitourinary: Negative except as documented in history of present illness. Hematology/Lymphatic s: Patient denies being on blood thinners.. Endocrine: Negative. Immunologic: Not immunocompromised. Musculoskeletal: negative Integumentary: Negative. Neurologic: Alert and oriented X4. Psychiatric: Negative. Surgical History Problems History of Ablation History of Tonsillectomy with adenoidectomy Family History Mother No pertinent family history Father No pertinent family history Social History Problems Never smoked tobacco (V49.89) (Z78.9) Allergies Medication No Known Drug Allergies Recorded By: Wendie Treadwell; 06/06/2023 3:41:01 PM Vitals Vital Signs Recorded: 06Jun2023 03:39PM [id number] Height6 ft 1 in Tobacco Useb) No PHQ-2 Patient Declined/Screening not indicatedYes Falls Screening (Age 18+)a) No falls within the last year Physical Exam A/O x 3 in No apparent distress Constitutional: General appearance normal Respiratory: Respiratory effort is normal Gastrointestinal:Abd omen is not tender Genitourinary: Kidneys: Not palpable Bilaterally Bladder: Not palpable or tender Scrotum: No mass. No Hydrocele Epididymis: No spermatocele. Not tender Testicles: no mass. WNL Urethra: No Discharge Penis: WNL...No lesions. circumcised Prostate: Symmetric. No Nodules. BENIGN Seminal Vesicles: No mass Sphincter Tone: normal Signatures Electronically signed by : Janes Ruvalcaba II, MD; Jun 06 2023 3:52PM EST (Author) Normal [employer] Tobacco Screening.on 023 Fall risk assessment a) No falls within the last year ZA[facility]ely[facility] Work Phone: Tobacco use status CPHS b) No M C-Unpvtwi-Sej [facility] Work Phone: Tobacco Screening. Yes MP[employer] Work Phone: Vital Signs Date Time Vital Sign Value Performing Clinician Facility 10-28-2024 08:00-0500 Body height 185.4 cm Pac 1 Work Phone: [facility] 10-28-2024 08:00-0500 Body mass index (BMI) [Ratio] 24.8 kg/m2 Pac 1 Work Phone: [facility] 10-28-2024 08:00-0500 Body temperature 97.9 [degF] Pac 1 Work Phone: [facility] 10-28-2024 08:00-0500 Body weight 85.28 kg Pac 1 Work Phone: [facility] 10-28-2024 08:00-0500 Diastolic blood pressure 56 mm[Hg] Pacc 1 Work Phone: [facility] 10-28-2024 08:00-0500 Heart rate 70 /min Pac 1 Work Phone: [facility] 10-28-2024 08:00-0500 Respiratory rate 12 /min Pac 1 Work Phone: [facility] 10-28-2024 08:00-0500 SaO2% (BldA) [Mass fraction] 96 % Pac 1 Work Phone: [facility] 10-28-2024 08:00-0500 Systolic blood pressure 122 mm[Hg] Pacc 1 Work Phone: [facility] 10-16-2024 08:31-0500 Body height 185.4 cm Nazanin Lynch MD Work Phone: [facility] 10-16-2024 08:31-0500 Body mass index (BMI) [Ratio] 24.8 kg/m2 Nazanin Lynch MD Work Phone: [facility] 10-16-2024 08:31-0500 Body weight 85.28 kg Nazanin Lynch MD Work Phone: [facility] 10-16-2024 08:31-0500 Diastolic blood pressure 73 mm[Hg] Nazanin Lynch MD Work Phone: [facility] 10-16-2024 08:31-0500 Heart rate 69 /min Nazanin Lynch MD Work Phone: [facility] 10-16-2024 08:31-0500 Systolic blood pressure 118 mm[Hg] Nazanin Lynch MD Work Phone: [facility] 09-25-2024 10:11-0500 Body height 185.4 cm Jeremiah Brooks MD Work Phone: [facility] 09-08-2024 09:03-0500 Body mass index (BMI) [Ratio] 25.36 kg/m2 Krislyn Aberegg PA Work Phone: [facility] 09-08-2024 09:03-0500 Body temperature 97.7 [degF] Krislyn Aberegg PA Work Phone: [facility] 09-08-2024 09:03-0500 Body weight 87.2 kg Krislyn Aberegg PA Work Phone: [facility] 09-08-2024 09:03-0500 Diastolic blood pressure 82 mm[Hg] Krislyn Aberegg PA Work Phone: [facility] 09-08-2024 09:03-0500 Heart rate 87 /min Krislyn Aberegg PA Work Phone: [facility] 09-08-2024 09:03-0500 Respiratory rate 16 /min Krislyn Aberegg PA Work Phone: [facility] 09-08-2024 09:03-0500 SaO2% (BldA) [Mass fraction] 99 % Krislyn Aberegg PA Work Phone: [facility] 09-08-2024 09:03-0500 Systolic blood pressure 122 mm[Hg] Krislyn Aberegg PA Work Phone: [facility] 07-17-2024 09:24-0400 Body mass index (BMI) [Ratio] 25.33 kg/m2 Janes Ruvalcaba MD Work Phone: [facility] 07-17-2024 09:24-0400 Body weight 87.09 kg Janes Ruvalcaba MD Work Phone: [facility] 07-17-2024 09:24-0400 Diastolic blood pressure 68 mm[Hg] Janes Ruvalcaba MD Work Phone: [facility] 07-17-2024 09:24-0400 Heart rate 33 /min Janes Ruvalcaba MD Work Phone: [facility] 07-17-2024 09:24-0400 Systolic blood pressure 123 mm[Hg] Janes Ruvalcaba MD Work Phone: [facility] 04-27-2024 10:28-0400 Body mass index (BMI) [Ratio] 25.04 kg/m2 Michelle MULLER-C Work Phone: [facility] 04-27-2024 10:28-0400 Body temperature 98.1 [degF] Michelle MULLER-C Work Phone: [facility] 04-27-2024 10:28-0400 Body weight 86.1 kg Michelle MULLER-C Work Phone: [facility] 04-27-2024 10:28-0400 Diastolic blood pressure 64 mm[Hg] Michelle Rasmussen PA-C Work Phone: [facility] 04-27-2024 10:28-0400 Heart rate 70 /min Michelle Rasmussen PA-C Work Phone: [facility] 04-27-2024 10:28-0400 Respiratory rate 16 /min Michelle Rasmussen PA-C Work Phone: [facility] 04-27-2024 10:28-0400 SaO2% (BldA) [Mass fraction] 99 % Michelle Rasmussen PA-C Work Phone: [facility] 04-27-2024 10:28-0400 Systolic blood pressure 102 mm[Hg] Michelle Rasmussen PA-C Work Phone: [facility] 04-09-2024 14:54-0400 Body mass index (BMI) [Ratio] 25.2 kg/m2 Janes Ruvalcaba MD Work Phone: [phone])545-163970 [address] 04-09-2024 14:54-0400 Body weight 86.64 kg Janes Ruvalcaba MD Work Phone: [facility] 04-09-2024 14:54-0400 Respiratory rate 16 /min Janes Ruvalcaba MD Work Phone: 3(208)112-3709[address] [place] [address] 12-19-2023 08:45-0400 Body height 185.4 cm Janes Ruvalcaba MD Work Phone: 5(217)854-883531 [place] [address] 12-19-2023 08:45-0400 Body mass index (BMI) [Ratio] 25.07 kg/m2 Janes Ruvalcaba MD Work Phone: [facility] 12-19-2023 08:45-0400 Body weight 86.18 kg Janes Ruvalcaba MD Work Phone: [facility] 12-19-2023 08:45-0400 Diastolic blood pressure 70 mm[Hg] Janes Ruvalcaba MD Work Phone: [facility] 12-19-2023 08:45-0400 Systolic blood pressure 110 mm[Hg] Janes Ruvalcaba MD Work Phone: 7([phone] [place] [address] 09-13-2023 15:39-0400 Body height 185.42 cm Janes Taylor Work Phone: [facility]Hk[facility]bbt[facility]zhdiyf Work Phone: 06-06-2023 15:39-0400 Respiratory rate 16 /min Janes Taylor Work Phone: [facility]Gtqzllm[facility]Vrcuiwr Work Phone: 10-19-2022 15:42-0500 Body temperature 98.2 [degF] Dr. Janes Taylor Work Phone: [facility] 10-19-2022 15:42-0500 Body weight 90.[address] Janes Taylor Work Phone: [facility] 10-19-2022 15:42-0500 Diastolic blood pressure 74 mm[Hg] Dr. Janes Taylor Work Phone: [facility] 10-19-2022 15:42-0500 Heart rate 62 /min Dr. Janes Taylor Work Phone: [facility] 10-19-2022 15:42-0500 Respiratory rate 16 /min Dr. Janes Taylor Work Phone: [facility] 10-19-2022 15:42-0500 SaO2% (BldA) [Mass fraction] 97 % Dr. Janes Taylor Work Phone: [facility] 10-19-2022 15:42-0500 Systolic blood pressure 128 mm[Hg] Dr. Janes Taylor Work Phone: [facility] Encounters Encounter Date Encounter Type Care Provider Facility Start: 03-14-2025 ambulatory Janes Garcia y:[facility] Start: 11-17-2024 End: 11-17-2024 ambulatory ATTILA ADAMS Facility:[facility] Start: 11-17-2024 End: 11-17-2024 Patient encounter procedure Attila Adams PA-C Work Phone: General Surgery Comment on above: S/P bilateral inguin al hernia repair (Primary Dx); Right inguinal hernia Start: 11-12-2024 End: 11-13-2024 Telephone encounter Nazanin Lynch MD Work Phone: General Surgery Comment on above: Patient Update Start: 11-07-2024 End: 11-07-2024 Telephone encounter Nazanin Lynch MD Work Phone: General Surgery Comment on above: Return To Work Maryellen r Start: 11-05-2024 End: 11-05-2024 ambulatory JANES TAYLOR Facility:[facility] Start: 10-28-2024 Encounter for other preprocedural examination JANES TAYLOR [facility] Start: 10-28-2024 End: 11-13-2024 Telephone encounter Kaylah Clements APRN.CNP Work Phone: Pre Anesthesia Comment on above: Request Outside [facility] Start: 10-28-2024 End: 10-28-2024 Admission to establishment Pacc [place] 1 Work Phone: Pre Anesthesia Start: 10-28-2024 End: 10-28-2024 ambulatory JANES TAYLOR Facility:[facility] Start: 10-28-2024 End: 10-28-2024 Anesthesia consultation Pacc [place] 1 Work Phone: Pre Anesthesia Comment on above: Pre-operative examin ation (Primary Dx); Insomnia, unspecified type; Aortic valve insufficiency, etiology of cardiac valve disease unspecified; Gastroesophageal reflux disease, unspecified whether esophagitis present; Benign prostatic hyperplasia with lower urinary tract symptoms, symptom details unspecified Start: 10-28-2024 End: 10-28-2024 Preprocedural examination done Pacc Krista 1 Work Phone: [facility] Work Phone: Start: 10-16-2024 ambulatory JANES TAYLOR Facilit y:[facility] Start: 10-16-2024 End: 10-16-2024 [facility] JANES TAYLOR Facility:[facility] Start: 10-16-2024 End: 10-16-2024 Patient encounter procedure Nazanin Lynch MD Work Phone: General Surgery Comment on above: Right inguinal herni a (Primary Dx) Start: 10-07-2024 ambulatory Richar Cain Facility :[facility] Start: 09-25-2024 End: 09-25-2024 Office consultation new/estab patient 40 min Jeremiah Brooks MD Work Phone: [facility] Comment on above: Right inguinal herni a (Primary Dx) Start: 09-25-2024 End: 09-25-2024 ambulatory [facility] Start: 09-08-2024 End: 09-08-2024 Patient encounter procedure Monroe MULLER Work Phone: [facility] Comment on above: URI, acute (Primary Dx); Suspected COVID-19 virus infection Start: 09-08-2024 End: 09-08-2024 ambulatory [facility] Start: 09-04-2024 [facility] Start: 07-17-2024 End: 07-17-2024 Office outpatient visit 25 minutes Janes Ruvalcaba MD Work Phone: [facility] Comment on above: Benign prostatic hyp erplasia with lower urinary tract symptoms, symptom details unspecified; Nocturia; Hypogonadism in male; Non-recurrent inguinal hernia without obstruction or gangrene, unspecified laterality Start: 07-17-2024 End: 07-17-2024 ambulatory [facility] Ambulatory Start: 07-16-2024 End: 07-16-2024 ambulatory Elvis Mitchell [facility] Start: 07-03-2024 End: 07-03-2024 ambulatory [facility] Facility:[facility] Start: 04-27-2024 End: 04-27-2024 ambulatory [facility] Facility:[facility] Start: 04-27-2024 End: 04-27-2024 Office outpatient new 30 minutes Michelle Rasmussen PA-C Work Phone: [facility] Comment on above: Cellulitis of skin ( Primary Dx); Paresthesias Start: 04-23-2024 End: 04-23-2024 ambulatory Danielle Rubio [facility] Start: 04-16-2024 End: 04-16-2024 ambulatory Danielle Rubio Facility:[facility] Start: 04-09-2024 End: 04-09-2024 Office outpatient visit 15 minutes Janes Ruvalcaba MD Work Phone: [facility] Comment on above: Hypogonadism in male ; Nocturia; Benign prostatic hyperplasia with lower urinary tract symptoms, symptom details unspecified Start: 04-09-2024 End: 04-09-2024 ambulatory [facility] Amb[facility] Start: 04-09-2024 End: 04-09-2024 ambulatory Hung Clay Facility:[facility] Start: 02-29-2024 End: 02-29-2024 ambulatory [facility] Start: 02-28-2024 End: 02-28-2024 Phys/qhp telephone evaluation 11-20 min Janes Ruvalcbaa MD Work Phone: [facility] Comment on above: Benign prostatic hyp erplasia with lower urinary tract symptoms, symptom details unspecified; Hypogonadism in male; Nocturia Start: 02-28-2024 End: 02-28-2024 ambulatory [facility] Ambulatory Start: 01-14-2024 End: 01-14-2024 Erroneous Encounter Janes Ruvalcaba MD Work Phone: [facility] Start: 12-19-2023 End: 12-19-2023 Office outpatient visit 25 minutes Janes Ruvalcaba MD Work Phone: [facility] Comment on above: Nocturia (Primary Dx ); Benign prostatic hyperplasia with lower urinary tract symptoms, symptom details unspecified; Hypogonadism in male Start: 12-19-2023 End: 12-19-2023 ambulatory [facility] Ambulatory Start: 12-07-2023 End: 12-07-2023 ambulatory [facility] Start: 09-06-2023 End: 09-06-2023 ambulatory [facility] Work Phone: Start: 09-06-2023 End: 09-06-2023 Patient encounter procedure [facility] Work Phone: Start: 08-29-2023 End: 08-29-2023 Office outpatient visit 15 minutes Janes Ruvalcaba MD Work Phone: [facility] Comment on above: Hypogonadism in male ; Nocturia; Benign prostatic hyperplasia with lower urinary tract symptoms, symptom details unspecified Start: 06-13-2023 AUDIT Janes stuart Work Phone: [facility]Axzpr[facility]Dioxjw[facility] HC 232 DO Work Phone: Start: 06-12-2023 End: 06-12-2023 ambulatory [facility] Work Phone: Start: 06-12-2023 End: 06-12-2023 Patient encounter procedure [facility] Work Phone: Start: 06-06-2023 Office outpatient ne w 45 minutes Janes Taylor Work Phone: [facility] Work Phone: Start: 06-06-2023 ambulatory MD JANES RUVALCABA Fa cility:[id number] Start: 10-24-2022 Non-patient / Non-visit Dr. Annmarie Taylor Work Phone: [facility] Start: 10-24-2022 End: 10-24-[address] Janes Taylor Work Phone: [facility] Work Phone: Start: 10-24-2022 End: 10-24-[address] Janes Taylor Work Phone: [facility] Start: 10-23-[address] Reuben Taylor Work Phone: [facility] Start: 10-19-2022 End: 10-19-2022 Encounter for general adult medical examination without abnormal findings Dr. Janes Taylor Work Phone: [facility] Start: 10-19-2022 End: 10-19-[address] Janes Taylor Work Phone: [facility] Procedures Date Procedure Procedure Detail Performing Clinician Start: 12-07-2023 PROSTATE SPECIFIC ANTIGEN JANES TAYLOR Start: 12-07-2023 Testosterone [Mass/volume] in Serum or Plasma JANES TAYLOR Destructive procedure Janes Taylor Work Phone: History of repair of inguinal hernia S/P bilateral inguinal hernia repair Attila Adams PA-C Work Phone: Tonsillectomy and adenoidectomy Janes Taylor Work Phone: Plan of Treatment Date Care Activity Detail Author Start: 2029 RSV patient s and/or patients aged 60+ years (1 - 1-dose 60+ series) RSV patients and/or patients aged 60+ years (1 - 1-dose 60+ series) [facility] Start: 11-05-2028 DTaP/Tdap/Td Vaccine s (2 - Td or Tdap) DTaP/Tdap/Td Vaccines (2 - Td or Tdap) [facility] Start: 11-05-2028 Urine microalbumin profile DTaP,Tdap,Td Vaccine (2 - Td or Tdap) [facility] Start: 10-28-2027 Diabetes Screening Diabetes Screenin g [facility] Start: 11-19-2024 End: 11-19-2024 Patient encounter procedure 11/19/2024 1:30 PM EST Office Visit General Surgery [address] [place] [id number] Attila Adams PA-C [address] [place] [address] LAPAROSCOPY SURGICAL REPAIR INITIAL INGUINAL HERNIA WITH TOTAL EXTRA PERITONEAL REPAIR [39222] General Surgery Comment on above: LAPAROSCOPY SURGICAL REPAIR INITIAL INGUINAL HERNIA WITH TOTAL EXTRA PERITONEAL REPAIR [06293] Start: 11-17-2024 End: 11-17-2024 Patient encounter procedure 11/17/2024 12:45 PM EST Office Visit General Surgery [address] [place] [address] Attila Adams PA-C [address] [place] [address] 11/05 KD Bi Ing HR w/M General Surgery Comment on above: 11/05 KD Bi Ing HR w/ M Start: 11-05-2024 End: 11-05-2024 Admission to same day surgery center 11/05/2024 11:11 AM EST - 11/05/2024 12:46 PM EST Surgery [facility] Surgery [address] [place] [address] Nazanin Lynch MD [address] [address] LAPAROSCOPY SURGICAL REPAIR INITIAL INGUINAL HERNIA WITH TOTAL EXTRA PERITONEAL REPAIR [facility] Surgery Comment on above: LAPAROSCOPY SURGICAL REPAIR INITIAL INGUINAL HERNIA WITH TOTAL EXTRA PERITONEAL REPAIR Start: 11-05-2024 End: 11-05-2024 Laparoscopy surg rpr initial inguinal hernia LAPAROSCOPY SURGICAL REPAIR INITIAL INGUINAL HERNIA WITH TOTAL EXTRA PERITONEAL REPAIR Right inguinal hernia 11/05/2024 11:11 AM EST ME OR Start: 11-05-2024 Subsequent hospital visit by physician 11/05/2024 11:11 AM EST Hospital Encounter [facility] Surgery [address] [place] [address] Nazanin Lynch MD [address] [address] Right inguinal hernia [K40.90] [facility] Surgery Comment on above: Right inguinal herni a [K40.90] Start: 11-05-2024 End: 11-05-2024 Admission to same day surgery center 11/05/2024 7:30 AM EST - 11/05/2024 9:05 AM EST Surgery [facility] Surgery [address] [place] [address] Nazanin Lynch MD [address] [address] LAPAROSCOPY SURGICAL REPAIR INITIAL INGUINAL HERNIA WITH TOTAL EXTRA PERITONEAL REPAIR [facility] Surgery Comment on above: LAPAROSCOPY SURGICAL REPAIR INITIAL INGUINAL HERNIA WITH TOTAL EXTRA PERITONEAL REPAIR Start: 11-05-2024 End: 11-05-2024 Laparoscopy surg rpr initial inguinal hernia LAPAROSCOPY SURGICAL REPAIR INITIAL INGUINAL HERNIA WITH TOTAL EXTRA PERITONEAL REPAIR Right inguinal hernia 11/05/2024 7:30 AM EST ME OR Start: 11-05-2024 Subsequent hospital visit by physician 11/05/2024 7:30 AM EST Hospital Encounter [facility] Surgery [address] [place] [address] Nazanin Lynch MD [address] [facility] [address] [place] [address] Right inguinal hernia [K40.90] [facility] Surgery Comment on above: Right inguinal herni a [K40.90] Start: 10-29-2024 End: 10-29-2024 Patient encounter procedure 10/29/2024 3:30 PM EST Office Visit [facility] [address] [facility] [address] [place] [id number] Janes Ruvalcaba MD [address] [place] [address] [facility] Start: 10-28-2024 End: 01-27-2025 CBC W Auto Differential panel - Blood COMPLETE BLOOD COUNT AND DIFFERENTIAL Lab Routine Pre-operative examination Expected: 10/28/2024, Expires: 01/27/2025 [facility] Work Phone: Comment on above: Expected: 10/28/2024 , Expires: 01/27/2025 Start: 10-28-2024 End: 01-27-2025 Comprehensive metabolic 2000 panel - Serum or Plasma COMPREHENSIVE METABOLIC PANEL Lab Routine Pre-operative examination Expected: 10/28/2024, Expires: 01/27/2025 [facility] Comment on above: Expected: 10/28/2024 , Expires: 01/27/2025 Start: 09-24-2024 End: 04-09-2025 Testosterone,Free and Total Testosterone,Free and Total Lab Routine Hypogonadism in male Expected: 09/24/2024 (Approximate), Expires: 04/09/2025 [facility] Work Phone: Comment on above: Expected: 09/24/2024 (Approximate), Expires: 04/09/2025 Start: 08-17-2024 End: 07-17-2025 Hemoglobin and Hematocrit panel - Blood Hemoglobin and Hematocrit, Blood Lab Routine Hypogonadism in male Expected: 08/17/2024 (Approximate), Expires: 07/17/2025 [facility] Work Phone: Comment on above: Expected: 08/17/2024 (Approximate), Expires: 07/17/2025 Start: 08-17-2024 End: 07-17-2025 Prostate specific Ag [Mass/volume] in Serum or Plasma Prostate Specific Antigen Lab Routine Nocturia Expected: 08/17/2024 (Approximate), Expires: 07/17/2025 [facility] Work Phone: Comment on above: Expected: 08/17/2024 (Approximate), Expires: 07/17/2025 Start: 08-17-2024 End: 07-17-2025 Testosterone [Mass/volume] in Serum or Plasma Testosterone Lab Routine Hypogonadism in male Expected: 08/17/2024 (Approximate), Expires: 07/17/2025 [facility] Service Area Work Phone: Comment on above: Expected: 08/17/2024 (Approximate), Expires: 07/17/2025 Start: 07-17-2024 End: 07-17-2025 Testosterone,Free and Total Testosterone,Free and Total Lab Routine Hypogonadism in male Expected: 07/17/2024 (Approximate), Expires: 07/17/2025 [facility] Work Phone: Comment on above: Expected: 07/17/2024 (Approximate), Expires: 07/17/2025 Start: 05-25-2024 Covid-19 Vaccine ( season) Covid-19 Vaccine ( season) [facility] Start: 05-25-[address] [facility] Start: 02-28-2024 End: 02-27-2025 Estradiol Free and Total Estradiol Free and Total Lab Routine Hypogonadism in male Expected: 02/28/2024 (Approximate), Expires: 02/27/2025 [facility] Service Area Work Phone: Comment on above: Expected: 02/28/2024 (Approximate), Expires: 02/27/2025 Start: 02-28-2024 End: 02-27-2025 Testosterone,Free and Total Testosterone,Free and Total Lab Routine Hypogonadism in male Expected: 02/28/2024 (Approximate), Expires: 02/27/2025 [facility] Work Phone: Comment on above: Expected: 02/28/2024 (Approximate), Expires: 02/27/2025 Start: 12-19-2023 End: 12-18-2024 Testosterone [Mass/volume] in Serum or Plasma Testosterone Lab Routine Hypogonadism in male Expected: 12/19/2023 (Approximate), Expires: 12/18/2024 [facility] Area Work Phone: Comment on above: Expected: 12/19/2023 (Approximate), Expires: 12/18/2024 Start: 07-25-2023 FUV, Provider: Janes Ruvalcaba II, Status: Pen, Time: 3:15 PM FUV, Provider: Jaens Ruvalcaba II, Status: Pen, Time: 3:15 PM [facility] Work Phone: Start: 05-25-2023 COVID-19 Vaccine ( season) COVID-19 Vaccine ( season) [facility] Start: 05-25-2023 Influenza vaccination Influenza Vacc ine (#1) [facility] Start: 12-02-2019 Pneumococcal vaccination Pneum ococcal Vaccine (1 of 1 - PCV) [facility] Start: 12-02-2019 Pneumococcal Vaccine : 50+ (1 of 1 - PCV) Pneumococcal Vaccine: 50+ (1 of 1 - PCV) [facility] Start: 12-02-2019 Shingrix Vaccine (1 of 2) Shingrix Vaccine (1 of 2) [facility] Start: 12-02-2019 Zoster Vaccines (1 of 2) Zoste r Vaccines (1 of 2) [facility] Start: 2014 Diabetes Screening Diabetes Screenin g [facility] Start: 2014 Screening for malign ant neoplasm of colon [facility] Start: 2004 Lipid panel Lipid Screening [facility] Start: 1988 Hepatitis B Vaccine (1 of 3 - 19+ 3-dose series) Hepatitis B Vaccine (1 of 3 - 19+ 3-dose series) [facility] Start: 1988 Hepatitis B Vaccines (1 of 3 - 19+ 3-dose series) Hepatitis B Vaccines (1 of 3 - 19+ 3-dose series) [facility] Start: 12-02-1987 Anxiety Screening Anxiety Screening [facility] Start: 12-02-1987 Depression Screening Depression Scre ening [facility] Start: 12-02-1987 Diabetes mellitus screening Diabetes Screening [facility] Start: 12-02-1987 Hepatitis C screening Hepatitis C Sc reening [facility] Start: 12-02-1987 HIV screening HIV Screening [facility] Start: 1970 MMR Vaccines (1 of 1 - Standard series) MMR Vaccines (1 of 1 - Standard series) [facility] Start: 06-03-1970 COVID-19 Vaccine (#1) COVID-19 Vacci ne (#1) [facility] Start: 1969 Hepatitis B Vaccines (1 of 3 - 3-dose series) Hepatitis B Vaccines (1 of 3 - 3-dose series) [facility] Start: 1969 HIV screening HIV Screening [facility] Start: 1969 Lipid panel Lipid Panel [facility] Start: 1969 Screening for malign ant neoplasm of colon [facility] Start: 1969 Yearly Adult Physical Yearly Adult P hysical [facility] Immunizations Immunization Date Immunization Notes Care Provider Fa felix 11-05-2018 tetanus toxoid, redu nakul diphtheria toxoid, and acellular pertussis vaccine, adsorbed Janes Ruvalcaba MD Work Phone: [facility] Work Phone: Payers Date Payer Category Payer Self-pay [id number] 2021 Managed Care (Private) [facility] [id number] 2019 Private Health Insurance MMO SUP [employer] PPO [id number] 2019 Unknown 2006 Unknown [id number] 1969 Unknown [id number]. 356 1969 Unknown [id number] .[id number]. 1245 1969 Unknown [id number] .[id number]. 1245 1969 Unknown [id number] .[id number]. 1244 1969 Unknown [id number] 2.16.840.1.786394.3.579.2. 1244 1969 Unknown [id number] 2.16.840.1.703477.3.579.2. 1244 1969 Unknown [id number] 2.16.840.1.268960.3.579.2. 1244 1969 Unknown [id number] 2.16.840.1.665113.3.579.2. 1244 1969 Unknown [id number] 2.16.840.1.285619.3.579.2. 1244 Unknown [id number] 2.16.840.1.597432.3.579.2. 462 Unknown [id number] 2.16.840.1.126992.3.579.2. 462 Unknown [id number] 2.16.840.1.355119.3.579.2. 462 Unknown [id number] 2.16.840.1.404924.3.579.2. 462 Unknown [id number] 2.16.840.1.142064.3.579.2. 462 Unknown [id number] 2.16.840.1.839047.3.579.2. 462 Unknown [id number] 2.16.840.1.819227.3.579.2. 462 Unknown [id number] 2.16.840.1.391721.3.579.2. 462 Social History Date Type Detail Facility Start: 10-19-2022 End: 01-11-2023 Tobacco smoking status MDIS Unknown if ever smoked [facility] Start: 1970 Sex Assigned At Male [facility] Start: 07-25-2023 End: 10-16-2024 Never smoked tobacco Never smoked tobacco [facility] Work Phone: Start: 07-25-2023 End: 10-16-2024 Tobacco smoking status NHIS Never smoked tobacco [facility] Start: 07-25-2023 End: 10-16-2024 Tobacco use and exposure Smokeless tobacco non-user [facility] Work Phone: Start: 07-25-2023 End: 10-16-2024 Tobacco use panel [facility] Work Phone: Start: 1970 Sex Assigned At Not on file [facility] Work Phone: Start: 12-09-2023 End: 09-25-2024 Exposure to SARS-CoV-2 (event) Not sure [facility] Start: 09-05-2023 End: 11-17-2024 Alcohol intake Current drinker of alcohol (finding) [facility] National Score (1-100), lower number is lower risk Not on file [facility] Start: 01-13-2013 Alcohol Comment moderate, 1-2 every couple weks [facility] Start: 09-25-2024 Alcohol Comment ONCE A WEEK [facility] Work Phone: Start: 10-28-2024 Alcohol Comment moderate, 1-2 every couple weeks [facility] Medical Equipment Procedure Code Equipment Code Equipment Origin al Text Equipment Identifier Dates Laser Equipment (Contracted) - [id number] [place] Start: 04-07-2013 Med Dextile Lt 1 3cm X 9cm (5.1' X 3.5'') - [id number] [place] Start: 11-05-2024 Med Dextile Rt 1 3cm X 9cm (5.1' X 3.5'') - [id number] [place] Start: 11-05-2024 Goals Date Patient Goal Desired Activity /State Clinical Notes 08-29-2023 to 11-17-2024 Attila Adams PA-C - 11/17/2024 2:45 PM ESTTelephone Encounter - Lynn Hill RN - 11/12/2024 3:01 PM ESTTelephone Encounter - Lynn Hill RN - 11/12/2024 3:01 PM ESTPatient Instructions Note Date & Type Note Facility 11-17-2024 History of Presen t illness Narrative IMPRESSION: Patient is s/p laparoscopic Bilateral inguinal hernia repair WITH mesh. PLAN: Post-op patient instructions were reviewed with the patient. I have explained to Mr. Nieves that he may return to normal activity with the following restrictions: no lifting greater than 20lbs for the next 4 weeks. I have encouraged him to contact me at any time with any questions or concerns that may arise. Follow up: PRN SUBJECTIVE: On 11/05/24 Michelle Nieves underwent a hernia repair with Dr. Nazanin Lynch. Presents now for follow up. Patient complaints: Post operative soreness Patient denies: Difficulty voiding, Redness around wound, and Drainage from incision/s OBJECTIVE: General Appearance: alert, oriented and in no acute distress Groin: soft and non-tender, no bulge or mass Incision: well approximated, no signs or symptoms of infection , and clean, dry and intact Attila Adams PA-C 11/17/2024 documented in this encounter [facility] 11-17-2024 Note HNO ID: [id number] Author: ATTILA ADAMS PA-C Service: ? Author Type: Physician Dealer Account Manager Type: Progress Notes Filed: 11/20/2024 16:27 Note Text: IMPRESSION: Patient is s/p laparoscopic Bilateral inguinal hernia repair WITH mesh. PLAN: Post-op patient instructions were reviewed with the patient. I have explained to Mr. Nieves that he may return to normal activity with the following restrictions: no lifting greater than 20lbs for the next 4 weeks. I have encouraged him to contact me at any time with any questions or concerns that may arise. Follow up: PRN SUBJECTIVE: On 11/05/24 Michelle Nieves underwent a hernia repair with Dr. Nazanin Lynhc. Presents now for follow up. 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 (The person ) He later felt sharp pain in his left side- front hip area. He is afraid he may have done something. Denies swelling or bulge to area, no redness Rates pain 3/10- tender at present Moved his post op appt up to 11/17/24 Advised to monitor the area for changes- swelling, increase in pain. Apply ice or heat to area for comfort for 15 min intervals during day. Advised to keep appt scheduled for 11/17/24 with Attila Adams Pa-C Advised to call if symptoms became much worse before then. Patient verbalizes understanding and has no further questions or concerns at this time. Was advised to call as needed for future problems. DATE OF SURGERY/PROCEDURE: 11/05/2024 PREOPERATIVE DIAGNOSIS: Right inguinal hernia. POSTOPERATIVE DIAGNOSIS: Bilateral inguinal hernias. SURGEON: Nazanin Lynch M.D. Post op 11/17/24 with Attila Adams Pa-C [facility] 11-12-2024 Miscellaneous Notes Patient call to state he was doing the Heimlich maneuver and chest compressions on someone who was choking today . (The person ) He later felt sharp pain in his left side- front hip area. He is afraid he may have done something. Denies swelling or bulge to area, no redness Rates pain 3/10- tender at present Moved his post op appt up to 11/17/24 Advised to monitor the area for changes- swelling, increase in pain. Apply ice or heat to area for comfort for 15 min intervals during day. Advised to keep appt scheduled for 11/17/24 with Attila Adams Pa-C Advised to call if symptoms became much worse before then. Patient verbalizes understanding and has no further questions or concerns at this time. Was advised to call as needed for future problems. DATE OF SURGERY/PROCEDURE: 11/05/2024 PREOPERATIVE DIAGNOSIS: Right inguinal hernia. POSTOPERATIVE DIAGNOSIS: Bilateral inguinal hernias. SURGEON: Nazanin Lynch M.D. Post op 11/17/24 with Attila Adams Pa-C documented in this encounter [facility] 11-07-2024 Telephone encounter Note Patient called for Return to Work Letter. Letter drafted in [employer] and posted to [email or web address] per his request. RTW 11/12/24 with restrictions , he said he discussed this with Dr Lynch. Encounter closed. [facility] 11-07-2024 Miscellaneous Notes Patient called for Return to Work Letter. Letter drafted in [employer] and posted to [email or web address] per his request. RTW 11/12/24 with restrictions , he said he discussed this with Dr Lynch. Encounter closed. documented in this encounter [facility] 11-06-2024 Telephone encounter Note ECHO has been scanned into cardiac notes. [facility] 11-06-2024 Miscellaneous Notes ECHO has been scanned into cardiac notes. spoke with PSS from the chart room. they are scanning it into [facility] now. Larry Arnold LPN ECHO 10/24/22 received and send to be scanned into chart. Larry Arnold LPN Please request most recent echo and cardiac OV from [facility]. 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 STAND GRINDER: Karel De Paz APRN.STAND GRINDER Performed by: STAND GRINDER Indications and Patient Condition Indications for airway management: anesthesia Preoxygenated: yes anesthesia circuit Method: sleep Cricoid Pressure: No Manual In-Line Stabilization: No Difficult Mask: No Final Airway Details Final airway type: endotracheal airway Final Endotracheal Airway: ETT Cuffed: yes Successful intubation technique: direct laryngoscopy Endotracheal tube insertion site: oral Blade: Banda Blade size: #3 ETT size (mm): 7.5 Measurement (cm): 23 Placement verified by: capnometry Cormack-Lehane Classification: grade IIa - partial view of glottis Number of attempts at approach: 1 Failed airway: no Unrecognized esophageal intubation: no Airway not difficult SIGNATURE: Karel De Paz APRN.STAND GRINDER PATIENT NAME: Michelle Nieves DATE: November 05, 2024 TIME: 11:22 AM CSN: [id number] [facility] 11-04-2024 Telephone encounter Note spoke with PSS from the chart room. they are scanning it into [facility] now. Larry Arnold LPN [facility] 10-28-2024 Telephone encounter Note ECHO 10/24/22 received and send to be scanned into chart. Larry Arnold LPN [facility] 10-28-2024 Telephone encounter Note Please request most recent echo and cardiac OV from [facility]. DOS 11/05/2024 [facility] 10-28-2024 Instructions Kaylah Clements APRN.CNP - 10/28/2024 8:33 AM EST Images from the original note were not included. [facility] PATIENT PREOPERATIVE INSTRUCTIONS Nazanin Lynch MD has scheduled you for your procedure at this surgery center: [facility]: [phone] -- [address] [facility] [address]. Please read below carefully for your personalized instructions. Dietary Restrictions: - No solid food after midnight. - You may have 12 ounces of clear liquids (water, clear juices such as apple juice or gatorade, carbonated beverages, clear tea, black coffee, jello) until 2 hours before scheduled arrival at facility. No red/purple coloring and no creamer/sugar Medications: Unless instructed differently below, stay on all of your medications until your surgery. If you start any new medications after today's visit, please contact your surgeon. Pre-Surgery Med Instructions Medication Instructions Mirtazapine (REMERON) 7.5 mg tablet Do not take the day of surgery Tadalafil (CIALIS) 5 mg tablet Stop 2 days before surgery MAGNESIUM ORAL Stop 7 days before surgery cholecalciferol, vitamin D3, (VITAMIN D3 ORAL) Stop 7 days before surgery MULTIVITAMIN ORAL Stop 7 days before surgery DOCOSAHEXANOIC ACID/EPA (FISH OIL ORAL) Stop 7 days before surgery If you take any medications for erectile dysfunction-Cialis (Tadalafil), Levitra, Staxyn (Vardenafil) Viagra (Sildenenafil please do not take these for 48 hours before surgery. If you start any new medications after today's visit, please contact the surgeon's office. If you are currently using a rcoh-smi-chxy injectable or oral medication for diabetes or weight loss such as Dulaglutide (Trulicity), Exenatide (Byetta, Bydureon), Liraglutide (Victoza, Saxenda), Semaglutide (Ozempic, Wegovy, Rybelsus), or Tirzepatide (Mounjaro), the medicine should be stopped at least 7 days before surgery. These medicines can cause food to remain in your stomach for a very long time and increase the risks from surgery and anesthesia. Not stopping the medication for a long enough time may result in your surgery being rescheduled. Blood Thinning Medications: - Stop NSAIDS (Ibuprofen, Advil, Aleve, Motrin, Celebrex, Mobic, etc.) 7 days before surgery, as directed by your surgeon. - Stop Aspirin 7 days before surgery, as directed by your surgeon. - Stop ALL herbal and dietary supplements 7 days before surgery. - You may take Tylenol (Acetaminophen) or any of your pain medications that do not contain aspirin or NSAIDS as needed. Important Reminders: - Candy, mints, and tobacco products are NOT permitted the morning of surgery. - Hearing aids, dentures and glasses may be worn the morning of surgery. - NO jewelry, body piercings, makeup, hairpins or contacts are to be worn the day of surgery. If you develop symptoms such as a fever, cold, or flu, or have other changes to your health within TWO DAYS of scheduled surgery or the morning of surgery, please contact the surgery center above. Personal Belongings: -Please have photo ID and insurance cards. -If you do not have a copy of advance directives on file with us, please bring a copy with you on the day of surgery. - Leave ALL valuables and money at home or with family members. - Please bring high-quality footwear, such as sneakers, to the hospital for ambulating post-surgery. For Outpatient Procedures: - YOU MUST HAVE A RESPONSIBLE MANAGER SUPPLY CHAIN TAKE YOU HOME. A HAY BALER OR DATA COLLECTION INTERVIEWER CANNOT BE MADE A RESPONSIBLE MANAGER SUPPLY CHAIN. - We recommend that a responsible person stays with you overnight to take care of you. - You cannot stay in a hotel alone after outpatient surgery. You will not be permitted to have your surgery, if you do not have someone to take care of you. Arrival Time for Surgery: - The Surgery Center or hospital where you are having surgery will call the afternoon before surgery (or Sunday for Sunday surgery) with a scheduled arrival time. - If you have not heard by 4 pm, please contact the surgery center above. Please be aware that emergency situations arise, which may delay or change your surgical time. If this happens, we will notify you as soon as possible and regret any inconvenience. If you already have an Advance Directive, please fax a copy to [phone] or email to for it to be added to your chart. If you do not have an Advance Directive, you can find the appropriate form and more information at [email or web address]. We recommend that you complete the Advance Directive form found on the website and bring it with you the day of your surgery. It can be witnessed and scanned into your chart that day. Kaylah Clements APRN.CNP documented in this encounter [facility] 10-28-2024 History and physical note Images from the original note were not included. [facility] HISTORY AND PHYSICAL EXAMINATION SERVICE DATE: 10/28/2024 SERVICE TIME: 9:21 AM PRIMARY CARE PHYSICIAN: Janes Taylor MD, MD Assessment Patient has the following medical conditions which may affect chacha-operative course: Insomnia Assessment: rx nightly Aortic valve regurgitation Assessment: hx, pt states following [facility], records requested Gastroesophageal reflux disease Assessment: diet controlled Benign prostatic hyperplasia with lower urinary tract symptoms Assessment: rx as needed [place] Activity Status Index: METS: Climb a flight of stairs or walk up a hill (5.50 METs) DASI Score: 5.5 Patient denies any chest pain or undue shortness of breath with the above physical activity. Clinical Frailty Scale: 2. Well STOP-Bang Score: Patient over 50 years old Male patient Denies snoring loudly Denies feeling tired, fatigued, or sleepy during the daytime Has not been observed to stop breathing or choking/gasping during sleep Denies having high blood pressure BMI less than or equal to 35 kg/m^2 Does not have a large neck STOP-Bang Score: 2 [id number] Score: Age: <65 Sex: male CHF history: No Hypertension history: No Stroke/TIA/thromboembolism history: No Vascular disease history: No Diabetes history: No [id number] Score: 0 ARISCAT Score: Age: 51-80 Preoperative SpO2: >=96% Respiratory infection in the last month: No Preoperative anemia: No Surgical incision: peripheral Duration of surgery: <2 hrs Emergency procedure: No ARISCAT Score: 3 ANESTHESIA FINDINGS: Intubation History: No history of difficult intubation Significant Anesthesia Considerations: none Airway History: No history of difficult airway I - PHYSICAL EVALUATION AIRWAY Patient intubated: No. Tracheostomy tube not present Mallampati: II. TM distance: >3 FB. Neck ROM: full ROM without neurological symptoms. Mouth opening: adequate. Short neck: no. Thick neck: no Moon present: no Lip Bite Test: I Microretrognathia/Micronagthia/ Recessed Chin: No DENTAL Dental findings: teeth intact. Additional comments: +crowns. II - ANESTHESIA PLAN Anesthetic Plan: other Beta Nereyda Monitoring Plan Post Procedure Analgesic Plan Prepared for Surgery: optimally prepared for surgery, pending [see comment]. labs CONSULTS: Patient does not require consults for optimization at this time Planned Anesthetic: other anesthesia choice The Following Tests/Procedures Have Been Initiated: Orders Placed This Encounter >CBC + AUTO DIFF Standing Status: Future Standing Expiration Date: 01/27/2025 >CMP Standing Status: Future Standing Expiration Date: 01/27/2025 REASON FOR VISIT: Michelle Nieves is a 53 year old male who is scheduled for Procedure(s) with comments: LAPAROSCOPY SURGICAL REPAIR INITIAL INGUINAL HERNIA WITH TOTAL EXTRA PERITONEAL REPAIR (Right) - LAPAROSCOPY SURGICAL REPAIR INITIAL INGUINAL HERNIA WITH TOTAL EXTRA PERITONEAL REPAIR [[id number]] at the request of Dr. Nazanin Lynch for consultation. My final recommendation will be communicated back to the requesting physician by way of shared medical record or letter. Subjective The patient has the following: COVID-19 Immunization Status Overdue - Covid-19 Vaccine ( season) Never done No completion, postpone, frequency change, or communication history exists for this topic. CHIEF COMPLAINT: Pre-op exam HPI: Michelle Nieves is a 53 year old seen for PAC due to scheduled above surgery because [facility]. 10/16/2024, Dr. Nazanin Lynhc INTERVAL HISTORY OF PRESENT ILLNESS: Michelle is a 53-year-old gentleman who presents with right groin pain. In June he felt a small lump. This has since increased in size and become more painful with pressure. He wears a belt to help with the discomfort. He can also hear a gurgling sound. He has been taking ibuprofen and reports having some upper abdominal pain. He denies obstructive symptoms. He does feel bloated. He was seen by his primary care and found to have a hernia defect. He presents today for surgical evaluation. REVIEW OF SYSTEMS: General: No weight loss, malaise or fevers. Neurological: No history of TIA's, stroke, PUNCHBOARD ASSEMBLER tumor, impaired sensorium, hemiplegia, paraplegia or quadraplegia. No neurological symptoms or problems. Respiratory: No history of current cough or dyspnea, or pneumonia in the past 6 weeks. No history of respiratory/pulmonary symptoms or problems. Cardiovascular: Positive for: murmur/valvular heart disease Negative for: abdominal aortic aneurysm, AICD/PPM, angina, anticoagulation therapy, arrhythmia, atrial fibrillation, CAD, chest pain, CHF, congenital heart defect, DVT/PE, hyperlipidemia, hypertension, recent ME, PTCA, PVD, open heart surgery and valve surgery. GI: See HPI. : No history of dysuria, frequency or incontinence, stones or chronic kidney disease. No difficulty urinating, nocturia > 1 time per night or hematuria. Endocrine: No history of diabetes. Has not taken steroids within the past 30 days. No history of endocrinological symptoms or problems. Hematology: No history of bleeding or clotting disorder. Patient is not taking anti-coagulation or platelet medications. No history of hematological symptoms or problems. Oncology: No history of CA metastasis, chemo within 30 days, or radiotherapy within 90 days. No history of oncological symptoms or problems. Psych: +insomnia, on rx. No history of psychiatric symptoms or problems. Musculoskeletal: Positive for: joint pain. Skin: Negative for lesions, rash and itching. Implanted Devices: No implanted devices. PAST MEDICAL HISTORY Diagnosis Date Acid reflux Acute bronchitis 10/16/2024 Altered bowel function 10/16/2024 Aortic valve regurgitation 10/16/2024 Arthritis Back pain 10/16/2024 Benign prostatic hyperplasia with lower urinary tract symptoms 07/24/2023 Benign prostatic hyperplasia with urinary obstruction 10/16/2024 BPH (benign prostatic hyperplasia) Fatigue 06/18/2023 Gastroesophageal reflux disease 10/16/2024 Hx of seasonal allergies Hypogonadism in male 07/24/2023 Insomnia 10/16/2024 Nocturia 07/24/2023 Osteoarthritis of right knee 04/23/2024 Segmental and somatic dysfunction 10/16/2024 Sinusitis Synovial cyst of knee 10/16/2024 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 Voice disturbance 01/13/2013 PAST SURGICAL HISTORY Procedure Laterality Date KNEE SURGERY HX Right PAST SURGICAL HISTORY OF Vocal cord polypectomy TONSILLECTOMY HX FAMILY HISTORY Problem Relation Age of Onset Diabetes Father other (a fib) Father other (heart murmur) Father Social History Tobacco Use Smoking status: Never Smokeless tobacco: Never Vaping Use Vaping status: Never Used Substance Use Topics Alcohol use: Yes Comment: moderate, 1-2 every couple weeks Drug use: Never Prior to Admission medications as of 10/28/24 0804 Medication Sig Last Dose Taking Mirtazapine (REMERON) 7.5 mg tablet Take 3.75-7.5 mg by mouth daily at bedtime. Taking Yes Tadalafil (CIALIS) 5 mg tablet Take 5 mg by mouth. Taking Yes MAGNESIUM ORAL Take by mouth once daily. Taking Yes cholecalciferol, vitamin D3, (VITAMIN D3 ORAL) Take by mouth once daily. Taking Yes MULTIVITAMIN ORAL Take by mouth once daily. Taking Yes DOCOSAHEXANOIC ACID/EPA (FISH OIL ORAL) Take by mouth. Taking Yes No medication comments found. ALLERGIES No Known Allergies Objective PHYSICAL EXAM: General: alert and oriented (x3) and healthy appearance. Pertinent negatives noted - not distressed. Skin: normal color, no rash or lesions. HEENT: EOM intact and pupils equal round. Pertinent negatives noted - no carotid bruit. Cardiovascular: Pulse characterized as regular.Positive for murmur (faint). Pertinent negatives noted - no rub and no gallop. Respiratory: normal breath sounds, no wheezes or crackles. No chest wall deformity or tenderness. Abdomen: soft. Pertinent negatives noted - not tender. Extremities: no deformity, no edema or tenderness, no joint swelling or clubbing. Neurological: normal cognition and motor skills. Gait normal. No weakness or sensory deficit. PAIN ASSESSMENT: VITALS: BP 122/56 Pulse 70 Temp 97.9 Resp 12 Ht 6' 1 (1.85m) Wt 188 lb (85.3kg) SpO2 96% BMI 24.81 kg/(m^2). Diagnostic tests reviewed for today's visit: Lab Value Units Date High Low HB No results within date range. HCT No results within date range. WBC No results within date range. PLT No results within date range. NA No results within date range. K No results within date range. GLUC No results within date range. BUN No results within date range. CREAT No results within date range. PTSEC No results within date range. INR No results within date range. APTT No results within date range. ALT No results within date range. AST No results within date range. TBILI No results within date range. TSH No results within date range. Lab Value Units Date High Low HCGQT No results within date range. UHCG No results within date range. HCG, BODY* No results within date range. Lab Value Units Date High Low ABORHD No results within date range. ABSCREEN No results within date range. No results found for: HBA1C No results found for this or any previous visit (from the past 8760 hour(s)). No results found for this or any previous visit (from the past 49370 hour(s)). Instructions Given to Patient: Instructions located in the after visit summary. Patient given verbal and written preop instructions and voices comprehension and compliance. SIGNATURE: Kaylah Clements APRN.CNP PATIENT NAME: Michelle Nieves DATE: October 28, 2024 TIME: 8:28 AM PAGER/CONTACT #: [facility] 10-28-2024 History and physical note Images from the original note were not included. [facility] HISTORY AND PHYSICAL EXAMINATION SERVICE DATE: 10/28/2024 SERVICE TIME: 9:21 AM PRIMARY CARE PHYSICIAN: Janes Taylor MD, MD Assessment Patient has the following medical conditions which may affect chacha-operative course: Insomnia Assessment: rx nightly Aortic valve regurgitation Assessment: hx, pt states following [facility], records requested Gastroesophageal reflux disease Assessment: diet controlled Benign prostatic hyperplasia with lower urinary tract symptoms Assessment: rx as needed [place] Activity Status Index: METS: Climb a flight of stairs or walk up a hill (5.50 METs) DASI Score: 5.5 Patient denies any chest pain or undue shortness of breath with the above physical activity. Clinical Frailty Scale: 2. Well STOP-Bang Score: Patient over 50 years old Male patient Denies snoring loudly Denies feeling tired, fatigued, or sleepy during the daytime Has not been observed to stop breathing or choking/gasping during sleep Denies having high blood pressure BMI less than or equal to 35 kg/m^2 Does not have a large neck STOP-Bang Score: 2 [id number] Score: Age: <65 Sex: male CHF history: No Hypertension history: No Stroke/TIA/thromboembolism history: No Vascular disease history: No Diabetes history: No [id number] Score: 0 ARISCAT Score: Age: 51-80 Preoperative SpO2: >=96% Respiratory infection in the last month: No Preoperative anemia: No Surgical incision: peripheral Duration of surgery: <2 hrs Emergency procedure: No ARISCAT Score: 3 ANESTHESIA FINDINGS: Intubation History: No history of difficult intubation Significant Anesthesia Considerations: none Airway History: No history of difficult airway I - PHYSICAL EVALUATION AIRWAY Patient intubated: No. Tracheostomy tube not present Mallampati: II. TM distance: >3 FB. Neck ROM: full ROM without neurological symptoms. Mouth opening: adequate. Short neck: no. Thick neck: no Moon present: no Lip Bite Test: I Microretrognathia/Micronagthia/ Recessed Chin: No DENTAL Dental findings: teeth intact. Additional comments: +crowns. II - ANESTHESIA PLAN Anesthetic Plan: other Beta Nereyda Monitoring Plan Post Procedure Analgesic Plan Prepared for Surgery: optimally prepared for surgery, pending [see comment]. labs CONSULTS: Patient does not require consults for optimization at this time Planned Anesthetic: other anesthesia choice The Following Tests/Procedures Have Been Initiated: Orders Placed This Encounter >CBC + AUTO DIFF Standing Status: Future Standing Expiration Date: 01/27/2025 >CMP Standing Status: Future Standing Expiration Date: 01/27/2025 REASON FOR VISIT: Michelle Nieves is a 53 year old male who is scheduled for Procedure(s) with comments: LAPAROSCOPY SURGICAL REPAIR INITIAL INGUINAL HERNIA WITH TOTAL EXTRA PERITONEAL REPAIR (Right) - LAPAROSCOPY SURGICAL REPAIR INITIAL INGUINAL HERNIA WITH TOTAL EXTRA PERITONEAL REPAIR [[id number]] at the request of Dr. Nazanin Lynch for consultation. My final recommendation will be communicated back to the requesting physician by way of shared medical record or letter. Subjective The patient has the following: COVID-19 Immunization Status Overdue - Covid-19 Vaccine ( season) Never done No completion, postpone, frequency change, or communication history exists for this topic. CHIEF COMPLAINT: Pre-op exam HPI: Michelle Nieves is a 53 year old seen for PAC due to scheduled above surgery because [facility]. 10/16/2024, Dr. Nazanin Lynch INTERVAL HISTORY OF PRESENT ILLNESS: Michelle is a 53-year-old gentleman who presents with right groin pain. In June he felt a small lump. This has since increased in size and become more painful with pressure. He wears a belt to help with the discomfort. He can also hear a gurgling sound. He has been taking ibuprofen and reports having some upper abdominal pain. He denies obstructive symptoms. He does feel bloated. He was seen by his primary care and found to have a hernia defect. He presents today for surgical evaluation. REVIEW OF SYSTEMS: General: No weight loss, malaise or fevers. Neurological: No history of TIA's, stroke, PUNCHBOARD ASSEMBLER tumor, impaired sensorium, hemiplegia, paraplegia or quadraplegia. No neurological symptoms or problems. Respiratory: No history of current cough or dyspnea, or pneumonia in the past 6 weeks. No history of respiratory/pulmonary symptoms or problems. Cardiovascular: Positive for: murmur/valvular heart disease Negative for: abdominal aortic aneurysm, AICD/PPM, angina, anticoagulation therapy, arrhythmia, atrial fibrillation, CAD, chest pain, CHF, congenital heart defect, DVT/PE, hyperlipidemia, hypertension, recent ME, PTCA, PVD, open heart surgery and valve surgery. GI: See HPI. : No history of dysuria, frequency or incontinence, stones or chronic kidney disease. No difficulty urinating, nocturia > 1 time per night or hematuria. Endocrine: No history of diabetes. Has not taken steroids within the past 30 days. No history of endocrinological symptoms or problems. Hematology: No history of bleeding or clotting disorder. Patient is not taking anti-coagulation or platelet medications. No history of hematological symptoms or problems. Oncology: No history of CA metastasis, chemo within 30 days, or radiotherapy within 90 days. No history of oncological symptoms or problems. Psych: +insomnia, on rx. No history of psychiatric symptoms or problems. Musculoskeletal: Positive for: joint pain. Skin: Negative for lesions, rash and itching. Implanted Devices: No implanted devices. PAST MEDICAL HISTORY Diagnosis Date Acid reflux Acute bronchitis 10/16/2024 Altered bowel function 10/16/2024 Aortic valve regurgitation 10/16/2024 Arthritis Back pain 10/16/2024 Benign prostatic hyperplasia with lower urinary tract symptoms 07/24/2023 Benign prostatic hyperplasia with urinary obstruction 10/16/2024 BPH (benign prostatic hyperplasia) Fatigue 06/18/2023 Gastroesophageal reflux disease 10/16/2024 Hx of seasonal allergies Hypogonadism in male 07/24/2023 Insomnia 10/16/2024 Nocturia 07/24/2023 Osteoarthritis of right knee 04/23/2024 Segmental and somatic dysfunction 10/16/2024 Sinusitis Synovial cyst of knee 10/16/2024 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 Voice disturbance 01/13/2013 PAST SURGICAL HISTORY Procedure Laterality Date KNEE SURGERY HX Right PAST SURGICAL HISTORY OF Vocal cord polypectomy TONSILLECTOMY HX FAMILY HISTORY Problem Relation Age of Onset Diabetes Father other (a fib) Father other (heart murmur) Father Social History Tobacco Use Smoking status: Never Smokeless tobacco: Never Vaping Use Vaping status: Never Used Substance Use Topics Alcohol use: Yes Comment: moderate, 1-2 every couple weeks Drug use: Never Prior to Admission medications as of 10/28/24 0859 Medication Sig Last Dose Taking Mirtazapine (REMERON) 7.5 mg tablet Take 3.75-7.5 mg by mouth daily at bedtime. Taking Yes Tadalafil (CIALIS) 5 mg tablet Take 5 mg by mouth. Taking Yes MAGNESIUM ORAL Take by mouth once daily. Taking Yes cholecalciferol, vitamin D3, (VITAMIN D3 ORAL) Take by mouth once daily. Taking Yes MULTIVITAMIN ORAL Take by mouth once daily. Taking Yes DOCOSAHEXANOIC ACID/EPA (FISH OIL ORAL) Take by mouth. Taking Yes No medication comments found. ALLERGIES No Known Allergies Objective PHYSICAL EXAM: General: alert and oriented (x3) and healthy appearance. Pertinent negatives noted - not distressed. Skin: normal color, no rash or lesions. HEENT: EOM intact and pupils equal round. Pertinent negatives noted - no carotid bruit. Cardiovascular: Pulse characterized as regular.Positive for murmur (faint). Pertinent negatives noted - no rub and no gallop. Respiratory: normal breath sounds, no wheezes or crackles. No chest wall deformity or tenderness. Abdomen: soft. Pertinent negatives noted - not tender. Extremities: no deformity, no edema or tenderness, no joint swelling or clubbing. Neurological: normal cognition and motor skills. Gait normal. No weakness or sensory deficit. PAIN ASSESSMENT: VITALS: BP 122/56 Pulse 70 Temp 97.9 Resp 12 Ht 6' 1 (1.85m) Wt 188 lb (85.3kg) SpO2 96% BMI 24.81 kg/(m^2). Diagnostic tests reviewed for today's visit: Lab Value Units Date High Low HB No results within date range. HCT No results within date range. WBC No results within date range. PLT No results within date range. NA No results within date range. K No results within date range. GLUC No results within date range. BUN No results within date range. CREAT No results within date range. PTSEC No results within date range. INR No results within date range. APTT No results within date range. ALT No results within date range. AST No results within date range. TBILI No results within date range. TSH No results within date range. Lab Value Units Date High Low HCGQT No results within date range. UHCG No results within date range. HCG, BODY* No results within date range. Lab Value Units Date High Low ABORHD No results within date range. ABSCREEN No results within date range. No results found for: HBA1C No results found for this or any previous visit (from the past 8760 hour(s)). No results found for this or any previous visit (from the past 89336 hour(s)). Instructions Given to Patient: Instructions located in the after visit summary. Patient given verbal and written preop instructions and voices comprehension and compliance. SIGNATURE: Kaylah Clements APRN.CNP PATIENT NAME: Michelle Nieves DATE: October 28, 2024 TIME: 8:28 AM PAGER/CONTACT #: documented in this encounter [facility] 10-16-2024 Note HNO ID: [id number] Author: NAZANIN LYNCH MD Service: ? Author Type: Physician Type: Progress Notes Filed: 10/16/2024 10:02 Note Text: General Surgery New Patient HANDP PATIENT NAME: Michelle Nieves Assessment ASSESSMENT/PLAN: (K40.90) Right inguinal hernia (primary encounter diagnosis) Michelle presents with a moderate size right inguinal hernia. We discussed the risks of nonsurgical management including incarceration and strangulation. We discussed laparoscopic versus open repair. At this time he would like to proceed with laparoscopic repair with mesh. Risks including bleeding, infection, nerve injury, ischemic orchitis, and recurrent hernia were explained and he would like to proceed. Surgery scheduled for November 05. He was instructed to discontinue NSAID use and monitor his upper abdominal discomfort. Office Visit on 10/16/24 Mirtazapine (REMERON) 7.5 mg tablet SURGICAL REQUEST - ELECTIVE (04/2020) SUBJECTIVE CHIEF COMPLAINT: Patient presents with: Consult: 2nd opinion - R inguinal hernia INTERVAL HISTORY OF PRESENT ILLNESS: Michelle is a 53-year-old gentleman who presents with right groin pain. In June he felt a small lump. This has since increased in size and become more painful with pressure. He wears a belt to help with the discomfort. He can also hear a gurgling sound. He has been taking ibuprofen and reports having some upper abdominal pain. He denies obstructive symptoms. He does feel bloated. He was seen by his primary care and found to have a hernia defect. He presents today for surgical evaluation. HISTORIES: PAST MEDICAL HISTORY Diagnosis Date Acid reflux Acute bronchitis 10/16/2024 Altered bowel function 10/16/2024 Aortic valve regurgitation 10/16/2024 Arthritis Back pain 10/16/2024 Benign prostatic hyperplasia with lower urinary tract symptoms 07/24/2023 Benign prostatic hyperplasia with urinary obstruction 10/16/2024 BPH (benign prostatic hyperplasia) Fatigue 06/18/2023 Gastroesophageal reflux disease 10/16/2024 Hx of seasonal allergies Hypogonadism in male 07/24/2023 Insomnia 10/16/2024 Nocturia 07/24/2023 Osteoarthritis of right knee 04/23/2024 Segmental and somatic dysfunction 10/16/2024 Sinusitis Synovial cyst of knee 10/16/2024 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 MEDICATIONS: Current Outpatient Medications Medication Sig Mirtazapine (REMERON) 7.5 mg tablet Take 3.75-7.5 mg by mouth daily at bedtime. Tadalafil (CIALIS) 5 mg tablet Take 5 mg by mouth. MAGNESIUM ORAL Take by mouth once daily. cholecalciferol, vitamin D3, (VITAMIN D3 ORAL) Take by mouth once daily. MULTIVITAMIN ORAL Take by mouth once daily. DOCOSAHEXANOIC ACID/EPA (FISH OIL ORAL) Take by mouth. No current facility-administered medications for this visit. FAMILY HISTORY Problem Relation Age of Onset Diabetes Father Social History Tobacco Use Smoking status: Never Smokeless tobacco: Never Vaping Use Vaping status: Never Used Substance Use Topics Alcohol use: Yes Comment: moderate, 1-2 every couple weks Drug use: Never OBJECTIVE PHYSICAL EXAM: BP 118/73 Pulse 69 Ht 6' 1 (1.85m) Wt 188 lb (85.3kg) BMI 24.81 kg/(m2). General: Well developed, well-nourished, in no distress HEENT: Normocephalic, atraumatic. Extraocular movements intact. Sclera are nonicteric. Heart: Regular rate and rhythm, no murmur Lungs: Clear to auscultation, without wheezes Abdomen: Soft, non tender, positive bowel sounds, no masses, moderate size reducible right inguinal hernia, no evidence for left inguinal hernia or umbilical hernia. Rectal: Not evaluated Extremities: No edema, no calf tenderness Neurologic: Alert, oriented, and appropriate. DATA: Diagnostic tests reviewed for today's visit: none Nazanin Lynch MD [facility] 10-16-2024 History of Presen t illness Narrative General Surgery New Patient H&P PATIENT NAME: Michelle Nieves Assessment ASSESSMENT/PLAN: (K40.90) Right inguinal hernia (primary encounter diagnosis) Michelle presents with a moderate size right inguinal hernia. We discussed the risks of nonsurgical management including incarceration and strangulation. We discussed laparoscopic versus open repair. At this time he would like to proceed with laparoscopic repair with mesh. Risks including bleeding, infection, nerve injury, ischemic orchitis, and recurrent hernia were explained and he would like to proceed. Surgery scheduled for November 05. He was instructed to discontinue NSAID use and monitor his upper abdominal discomfort. Office Visit on 10/16/24 Mirtazapine (REMERON) 7.5 mg tablet SURGICAL REQUEST - ELECTIVE (04/2020) SUBJECTIVE CHIEF COMPLAINT: Patient presents with: Consult: 2nd opinion - R inguinal hernia INTERVAL HISTORY OF PRESENT ILLNESS: Michelle is a 53-year-old gentleman who presents with right groin pain. In June he felt a small lump. This has since increased in size and become more painful with pressure. He wears a belt to help with the discomfort. He can also hear a gurgling sound. He has been taking ibuprofen and reports having some upper abdominal pain. He denies obstructive symptoms. He does feel bloated. He was seen by his primary care and found to have a hernia defect. He presents today for surgical evaluation. HISTORIES: PAST MEDICAL HISTORY Diagnosis Date Acid reflux Acute bronchitis 10/16/2024 Altered bowel function 10/16/2024 Aortic valve regurgitation 10/16/2024 Arthritis Back pain 10/16/2024 Benign prostatic hyperplasia with lower urinary tract symptoms 07/24/2023 Benign prostatic hyperplasia with urinary obstruction 10/16/2024 BPH (benign prostatic hyperplasia) Fatigue 06/18/2023 Gastroesophageal reflux disease 10/16/2024 Hx of seasonal allergies Hypogonadism in male 07/24/2023 Insomnia 10/16/2024 Nocturia 07/24/2023 Osteoarthritis of right knee 04/23/2024 Segmental and somatic dysfunction 10/16/2024 Sinusitis Synovial cyst of knee 10/16/2024 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 MEDICATIONS: Current Outpatient Medications Medication Sig Mirtazapine (REMERON) 7.5 mg tablet Take 3.75-7.5 mg by mouth daily at bedtime. Tadalafil (CIALIS) 5 mg tablet Take 5 mg by mouth. MAGNESIUM ORAL Take by mouth once daily. cholecalciferol, vitamin D3, (VITAMIN D3 ORAL) Take by mouth once daily. MULTIVITAMIN ORAL Take by mouth once daily. DOCOSAHEXANOIC ACID/EPA (FISH OIL ORAL) Take by mouth. No current facility-administered medications for this visit. FAMILY HISTORY Problem Relation Age of Onset Diabetes Father Social History Tobacco Use Smoking status: Never Smokeless tobacco: Never Vaping Use Vaping status: Never Used Substance Use Topics Alcohol use: Yes Comment: moderate, 1-2 every couple weks Drug use: Never OBJECTIVE PHYSICAL EXAM: BP 118/73 Pulse 69 Ht 6' 1 (1.85m) Wt 188 lb (85.3kg) BMI 24.81 kg/(m^2). General: Well developed, well-nourished, in no distress HEENT: Normocephalic, atraumatic. Extraocular movements intact. Sclera are nonicteric. Heart: Regular rate and rhythm, no murmur Lungs: Clear to auscultation, without wheezes Abdomen: Soft, non tender, positive bowel sounds, no masses, moderate size reducible right inguinal hernia, no evidence for left inguinal hernia or umbilical hernia. Rectal: Not evaluated Extremities: No edema, no calf tenderness Neurologic: Alert, oriented, and appropriate. DATA: Diagnostic tests reviewed for today's visit: none Nazanin Lynch MD documented in this encounter [facility] 09-25-2024 History of Presen t illness Narrative General Surgery Consultation Patient: Michelle Nieves : 1970 Date of Consultation: 09/25/24 Primary Care Provider: Janes Taylor MD Referring Provider: Self referral Chief Complaint: Right groin bulge History of Present Illness: Michelle Nieves is a 53 y.o. old male seen by self referral for evaluation of a right inguinal hernia. Around May or June he started noticing a bulge in the right side of his groin. He routinely lifts weights for exercise and started noticing this after certain lifting exercises, although he never felt a distinct pop/pull/injury, it was more that he gradually noticed this. Around July he started getting a discomfort associated with this bulge. He also noticed that the bulge is increasing in size and getting lower / extending down towards the scrotum. He denies any bulge or discomfort on the left side of the groin. The bulge reduces when he lays flat. 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 He does not have any obstructive symptoms. He has no previous abdominal surgery. His BMI is 25. Medical History: Right inguinal hernia Insomnia GERD Arthritis Seasonal allergies BPH Surgical History: Vocal cord polypectomy Right knee surgery Tonsillectomy Home Medications: Prior to Admission medications Medication Sig Start Date End Date Taking? Authorizing Provider clomiPHENE (Clomid) 50 mg tablet Take 1 tablet (50 mg) by mouth once daily. Historical Provider, tadalafil (Cialis) 5 mg tablet take 1 tablet by mouth once daily 06/23/24 Janes Ruvalcaba MD tadalafil (Cialis) 5 mg tablet Take 1 tablet (5 mg) by mouth once daily. 06/19/24 06/19/25 Janes Ruvalcaba MD testosterone enanthate (Xyosted) 100 mg/0.5 mL auto-injector Inject 1 Syringe (100 mg) under the skin every 7 days. 12/19/23 Janes Ruvalcaba MD Allergies: No Known Allergies Family History: No family of colon or rectal cancer. Social History: Non-smoker. Occasional alcohol use, on average once per week. No drug use. 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 He routinely works out including weightlifting. ROS: Constitutional: no fever, sweats, and chills Cardiovascular: No chest pain Respiratory: No cough or shortness of breath Gastrointestinal: + Abdominal pain and bloating, bulge in right groin with associated discomfort, no symptoms on the left Genitourinary: + BPH Musculoskeletal: + Joint pain/stiffness, arthritis Integumentary: no rashes Neurological: no confusion Endocrine: no heat or cold intolerance Heme/Lymph: no easy bruising or bleeding Objective: Ht 1.854 m (6' 1) BMI 25.33 kg/m Physical Exam: Constitutional: No acute distress, conversant, pleasant Neurologic: alert and oriented Psych: appropriate affect Ears, Nose, Mouth and Throat: mucus membranes moist Pulmonary: No labored breathing Cardiovascular: Regular rate and rhythm Abdomen: soft, non-distended, nontender, BMI 25, no surgical scars, reducible right inguinal hernia with moderate-sized visible bulge on standing, no hernia on the left Genitourinary: Bilateral descended testicles without palpable masses (although patient does report history of an epididymal cyst) Musculoskeletal: Moves all extremities, no edema Skin: no jaundice Labs/Imaging: No pertinent labs or imaging available for review. Assessment and Plan: Michelle Nieves is a 53 y.o. old male with a reducible right inguinal hernia. Risks, benefits and alternatives of laparoscopic right inguinal hernia repair were discussed with the patient. This included risk of bleeding, infection, conversion to an open procedure, spermatic cord injury, testicular injury or loss, nerve injury, hernia recurrence, and urinary retention. We discussed the use of mesh in this repair. The patient was agreeable to proceed with surgery and surgical consent was signed in the office today. However, he wanted to discuss further with his and look at his basketball schedule prior to scheduling the surgery. When he is ready to schedule, he will be scheduled for laparoscopic right inguinal hernia repair (TEP). Jeremiah Brooks MD 09/25/2024 documented in this encounter [facility] Work Phone: 09-08-2024 Note HNO ID: [id number] Author: MONROE SHEPPARD PA Service: ? Author Type: Physician Dealer Account Manager Type: Progress Notes Filed: 09/08/2024 09:13 Note Text: This note was created using NoteWriter. Subjective Michelle Nieves is a 53 year old male. HPI 53-year-old male presents for cough, congestion, sinus pressure, fevers, chills, body aches. Patient states he started getting cough and nasal congestion about 3 days ago. He has had fever on Sunday, but that resolved. He has had chills and bodyaches. No chest pain or shortness of breath. No vomiting. He had 1 episode of diarrhea over the weekend. He states he did a home COVID test on Sunday that came back positive. He has been taking DayQuil, Mucinex, Tylenol and Motrin without much improvement in symptoms. PAST MEDICAL HISTORY Diagnosis Date Acid reflux Arthritis Hx of seasonal allergies Sinusitis PAST SURGICAL HISTORY Procedure Laterality Date TONSILLECTOMY HX ALLERGIES Patient has no known allergies. MEDICATIONS Tadalafil (CIALIS) 5 mg tablet Take 5 mg by mouth. MAGNESIUM ORAL Take by mouth once daily. cholecalciferol, vitamin D3, (VITAMIN D3 ORAL) Take by mouth once daily. MULTIVITAMIN ORAL Take by mouth once daily. DOCOSAHEXANOIC ACID/EPA (FISH OIL ORAL) Take by mouth. SAW PALMETTO ORAL Take by mouth once daily. (Patient not taking: Reported on 09/05/2023) acyclovir (ZOVIRAX) 5 % crea Apply 1 application to affected area five times daily. (Patient not taking: Reported on 09/05/2023) acyclovir (ZOVIRAX) 5 % Crea Apply 1 application to affected area five times daily. (Patient not taking: Reported on 09/05/2023) pantoprazole (PROTONIX) 40 mg tablet Take 1 tablet by mouth once daily. (Patient not taking: Reported on 09/05/2023) PANTOPRAZOLE SODIUM (PROTONIX ORAL) Take by mouth. Pt unsure of dosage (Patient not taking: Reported on 09/05/2023) FAMILY HISTORY Problem Relation Age of Onset Diabetes Father Social History Tobacco Use Smoking status: Never Substance Use Topics Alcohol use: Yes Comment: moderate, 1-2 every couple weks Review of Systems Constitutional: Positive for chills and fever. HENT: Positive for congestion. Negative for sore throat. Respiratory: Positive for cough. Negative for shortness of breath. Gastrointestinal: Negative for diarrhea and vomiting. Objective BP 122/82 Pulse 87 Temp 36.5 ?C (97.7 ?F) (Tympanic) Resp 16 Wt 87.2 kg (192 lb 3.9 oz) SpO2 99% BMI 25.36 kg/m? Physical Exam Vitals and nursing note reviewed. Constitutional: General: He is not in acute distress. Appearance: Normal appearance. He is not toxic-appearing. HENT: Right Ear: Tympanic membrane and ear canal normal. Left Ear: Tympanic membrane and ear canal normal. Nose: Congestion present. Mouth/Throat: Mouth: Mucous membranes are moist. Pharynx: Oropharynx is clear. Eyes: Conjunctiva/sclera: Conjunctivae normal. Cardiovascular: Rate and Rhythm: Normal rate and regular rhythm. Pulmonary: Effort: Pulmonary effort is normal. Breath sounds: Normal breath sounds. No wheezing, rhonchi or rales. Skin: General: Skin is warm and dry. Neurological: Mental Status: He is alert. Assessment and Plan ASSESSMENT/PLAN: 1. URI, acute - ICD9: 465.9, ICD10: J06.9 (primary diagnosis) - Discussed viral etiology and rationale for treatment. - Symptomatic treatment with prn analgesia - Supportive care with fluids and rest - The patient may also use OTC cough/cold medications. Rx for Vin Urrutia sent to pharmacy. 2. Suspected COVID-19 virus infection - ICD9: V01.79, ICD10: Z20.822 -Home positive COVID test. -Offered PCR testing, patient declined -Discussed current CDC recommendations for isolation. Diagnosis and treatment plan were discussed and questions were answered to the patient's satisfaction. Pt acknowledged understanding of concepts and follow up plan. Specific signs and symptoms that would indicate the need for higher level of care were discussed in detail warranting prompt ER evaluation. RENZO Ortiz [facility] 09-08-2024 History of Presen t illness Narrative This note was created using ThrowMotionriter. Subjective Michelle Nieves is a 53 year old male. HPI 53-year-old male presents for cough, congestion, sinus pressure, fevers, chills, body aches. Patient states he started getting cough and nasal congestion about 3 days ago. He has had fever on Sunday, but that resolved. He has had chills and bodyaches. No chest pain or shortness of breath. No vomiting. He had 1 episode of diarrhea over the weekend. He states he did a home COVID test on Sunday that came back positive. He has been taking DayQuil, Mucinex, Tylenol and Motrin without much improvement in symptoms. PAST MEDICAL HISTORY Diagnosis Date Acid reflux Arthritis Hx of seasonal allergies Sinusitis PAST SURGICAL HISTORY Procedure Laterality Date TONSILLECTOMY HX ALLERGIES Patient has no known allergies. MEDICATIONS Tadalafil (CIALIS) 5 mg tablet Take 5 mg by mouth. MAGNESIUM ORAL Take by mouth once daily. cholecalciferol, vitamin D3, (VITAMIN D3 ORAL) Take by mouth once daily. MULTIVITAMIN ORAL Take by mouth once daily. DOCOSAHEXANOIC ACID/EPA (FISH OIL ORAL) Take by mouth. SAW PALMETTO ORAL Take by mouth once daily. (Patient not taking: Reported on 09/05/2023) acyclovir (ZOVIRAX) 5 % crea Apply 1 application to affected area five times daily. (Patient not taking: Reported on 09/05/2023) acyclovir (ZOVIRAX) 5 % Crea Apply 1 application to affected area five times daily. (Patient not taking: Reported on 09/05/2023) pantoprazole (PROTONIX) 40 mg tablet Take 1 tablet by mouth once daily. (Patient not taking: Reported on 09/05/2023) PANTOPRAZOLE SODIUM (PROTONIX ORAL) Take by mouth. Pt unsure of dosage (Patient not taking: Reported on 09/05/2023) FAMILY HISTORY Problem Relation Age of Onset Diabetes Father Social History Tobacco Use Smoking status: Never Substance Use Topics Alcohol use: Yes Comment: moderate, 1-2 every couple weks Review of Systems Constitutional: Positive for chills and fever. HENT: Positive for congestion. Negative for sore throat. Respiratory: Positive for cough. Negative for shortness of breath. Gastrointestinal: Negative for diarrhea and vomiting. Objective BP 122/82 Pulse 87 Temp 36.5 C (97.7 F) (Tympanic) Resp 16 Wt 87.2 kg (192 lb 3.9 oz) SpO2 99% BMI 25.36 kg/m Physical Exam Vitals and nursing note reviewed. Constitutional: General: He is not in acute distress. Appearance: Normal appearance. He is not toxic-appearing. HENT: Right Ear: Tympanic membrane and ear canal normal. Left Ear: Tympanic membrane and ear canal normal. Nose: Congestion present. Mouth/Throat: Mouth: Mucous membranes are moist. Pharynx: Oropharynx is clear. Eyes: Conjunctiva/sclera: Conjunctivae normal. Cardiovascular: Rate and Rhythm: Normal rate and regular rhythm. Pulmonary: Effort: Pulmonary effort is normal. Breath sounds: Normal breath sounds. No wheezing, rhonchi or rales. Skin: General: Skin is warm and dry. Neurological: Mental Status: He is alert. Assessment and Plan ASSESSMENT/PLAN: 1. URI, acute - ICD9: 465.9, ICD10: J06.9 (primary diagnosis) - Discussed viral etiology and rationale for treatment. - Symptomatic treatment with prn analgesia - Supportive care with fluids and rest - The patient may also use OTC cough/cold medications. Rx for Tessalon Perles sent to pharmacy. 2. Suspected COVID-19 virus infection - ICD9: V01.79, ICD10: Z20.822 -Home positive COVID test. -Offered PCR testing, patient declined -Discussed current CDC recommendations for isolation. Diagnosis and treatment plan were discussed and questions were answered to the patient's satisfaction. Pt acknowledged understanding of concepts and follow up plan. Specific signs and symptoms that would indicate the need for higher level of care were discussed in detail warranting prompt ER evaluation. RENZO Ortiz documented in this encounter [facility] 07-17-2024 History of Presen t illness Narrative Subjective Patient ID: Michelle Nieves is a 53 y.o. male. HPI Patient is here for to discuss second opinion for inguinal hernia. He states he did see general surgeon yesterday and has surgery scheduled. Hx of hypogonadism. . He is not on any replacement. Recent PSA was 0.73 on 12/07/23. Recent free testosterone was 42.1, Total testosterone was 348 (03/17), Previous was 633 on 12/15. Prior T level was 390 on 07/15. Total Estradiol level 8 (03/17) Free estradiol 0.17 (03/17) He state he feels tired and feels he is losing Muscle mass. Chronic BPH sx are mild and stable. Denies urgency and frequency. Denies dysuria. Denies hematuria. Nocturia x1. No medication for LUT'S. Sushma helpful Review of Systems Constitutional: Negative for chills and fever. HENT: Negative. Eyes: Negative. Respiratory: Negative for cough and shortness of breath. Cardiovascular: Negative for chest pain and leg swelling. Gastrointestinal: Negative for nausea. Endocrine: Negative. Genitourinary: Negative for difficulty urinating. Negative except for documented in HPI Allergic/Immunologic: Negative. Neurological: Alert & oriented X 3 Hematological: Denies blood thinners Psychiatric/Behavioral: Negative. Objective Physical Exam Vitals and nursing note reviewed. Constitutional: General: He is not in acute distress. Appearance: Normal appearance. Pulmonary: Effort: Pulmonary effort is normal. Abdominal: Tenderness: There is no abdominal tenderness. Genitourinary: Comments: Kidneys non palpable bilaterally Bladder non palpable or tender Scrotum no mass, No hydrocele Epididymis- R spermatocele. Non Tender. Testicles: No mass Urethra: No discharge Penis within normal limits... No lesions Prostate - deferred RIH present Neurological: Mental Status: He is alert. Assessment/Plan Diagnoses and all orders for this visit: Benign prostatic hyperplasia with lower urinary tract symptoms, symptom details unspecified Nocturia Hypogonadism in male Non-recurrent inguinal hernia without obstruction or gangrene, unspecified laterality All available PSA values reviewed, Options discussed. Questions answered. Diet changes for prostate health discussed and educational information given. Pros/Cons of prostate health supplements discussed. Treatment options for LUTS reviewed Discussed timed voiding. Discussed fluid and caffeine intake Treatment options for ED reviewed. Continue Cialis Lifestyle change to help prevent UTIs discussed. Encouraged fluid intake. pros/cons of Testosterone replacement reviewed. Replacement options discussed. Questions answered. Available levels reviewed. Patient on homeopathic Discussed R IH F/U 4 months with PSA and Free and Total T documented in this encounter [facility] Work Phone: 04-27-2024 Note HNO ID: [id number] Author: MICHELLE RASMUSSEN PA-C Service: ? Author Type: Physician Dealer Account Manager Type: Progress Notes Filed: 04/27/2024 11:01 Note Text: This note was created using ThrowMotionriter. Subjective Michelle Nieves is a 53 year old male. HPI presents with an 8-day history of a rash on the left ankle from unknown cause. He does not believe he was bit by an insect or exposed to any poison ying. The rash is localized at the ankle. He began applying topical triamcinolone that was given to him by his brother. He also reports a 6-day history of tingling of the right arm beginning in the shoulder and ending at the wrist. He reports that he works out frequently and has been doing a lot of push-ups he feels this may have caused his right arm symptoms. He reports that his orthopedic physician called in a steroid prescription for him. He has not picked it up or began the medication yet. He plans to do so today. Patient reports receiving a cortisone injection of the right knee on 04/23/2024. PAST MEDICAL HISTORY No date: Acid reflux No date: Arthritis No date: Hx of seasonal allergies No date: Sinusitis PAST SURGICAL HISTORY No date: TONSILLECTOMY HX ALLERGIES Patient has no known allergies. MEDICATIONS Tadalafil (CIALIS) 5 mg tablet Take 5 mg by mouth. MAGNESIUM ORAL Take by mouth once daily. cholecalciferol, vitamin D3, (VITAMIN D3 ORAL) Take by mouth once daily. MULTIVITAMIN ORAL Take by mouth once daily. DOCOSAHEXANOIC ACID/EPA (FISH OIL ORAL) Take by mouth. SAW PALMETTO ORAL Take by mouth once daily. (Patient not taking: Reported on 09/05/2023) acyclovir (ZOVIRAX) 5 % crea Apply 1 application to affected area five times daily. (Patient not taking: Reported on 09/05/2023) acyclovir (ZOVIRAX) 5 % Crea Apply 1 application to affected area five times daily. (Patient not taking: Reported on 09/05/2023) pantoprazole (PROTONIX) 40 mg tablet Take 1 tablet by mouth once daily. (Patient not taking: Reported on 09/05/2023) PANTOPRAZOLE SODIUM (PROTONIX ORAL) Take by mouth. Pt unsure of dosage (Patient not taking: Reported on 09/05/2023) FAMILY HISTORY Problem Relation Age of Onset Diabetes Father Social History Tobacco Use Smoking status: Never Substance Use Topics Alcohol use: Yes Comment: moderate, 1-2 every couple weks Review of Systems Respiratory: Negative for chest tightness and shortness of breath. Cardiovascular: Negative for chest pain. Musculoskeletal: Negative for arthralgias, back pain, joint swelling, neck pain and neck stiffness. Skin: Positive for rash. Neurological: Negative for dizziness, weakness, light-headedness and headaches. Reports tingling of the right arm, see HPI All other systems reviewed and are negative. Objective BP 102/64 Pulse 70 Temp 36.7 ?C (98.1 ?F) Resp 16 Wt 86.1 kg (189 lb 13.1 oz) SpO2 99% BMI 25.04 kg/m? Physical Exam Vitals and nursing note reviewed. Constitutional: Appearance: Normal appearance. Cardiovascular: Rate and Rhythm: Normal rate and regular rhythm. Pulses: Normal pulses. Heart sounds: Normal heart sounds. Pulmonary: Effort: Pulmonary effort is normal. Breath sounds: Normal breath sounds. Abdominal: General: Bowel sounds are normal. Musculoskeletal: General: No swelling, tenderness, deformity or signs of injury. Normal range of motion. Comments: Right upper extremity: Full pain-free range of range of motion of the head and neck and right arm. Proximal motor strength at 5/5 equipment superintendent strength 5/5 sensation is intact in all dermatomes. Neer's test is negative. Fine motor skills intact. Skin: General: Skin is warm. Findings: Erythema, lesion and rash present. Comments: Left ankle: 6 cm diameter circular erythematous rash on the anterior lateral aspect of the ankle. The lesion is warm and painful to the touch. There is no streaking. Neurological: General: No focal deficit present. Mental Status: He is alert. Psychiatric: Mood and Affect: Mood normal. Assessment and Plan ASSESSMENT/PLAN: 1. Cellulitis of skin - ICD9: 682.9, ICD10: L03.90 - Begin treatment with Cephalaxin (Keflex) - No lymphangetic streaking, this was defined for patient to watch for and to seek medical care immediately if appears - CEPHALEXIN 500 MG TABLET Patient was instructed on the use of cephalexin. Continue the triamcinolone for the left ankle. Begin the steroid as prescribed by orthopedics. Follow-up with Ortho if no relief of symptoms. Michelle Rasmussen PA-C [facility] 04-27-2024 History of Presen t illness Narrative This note was created using [employer]Motion[employer]. Subjective Michelle Mayen Nahid is a 53 year old male. HPI presents with an 8-day history of a rash on the left ankle from unknown cause. He does not believe he was bit by an insect or exposed to any poison ying. The rash is localized at the ankle. He began applying topical triamcinolone that was given to him by his brother. He also reports a 6-day history of tingling of the right arm beginning in the shoulder and ending at the wrist. He reports that he works out frequently and has been doing a lot of push-ups he feels this may have caused his right arm symptoms. He reports that his orthopedic physician called in a steroid prescription for him. He has not picked it up or began the medication yet. He plans to do so today. Patient reports receiving a cortisone injection of the right knee on 04/23/2024. PAST MEDICAL HISTORY No date: Acid reflux No date: Arthritis No date: Hx of seasonal allergies No date: Sinusitis PAST SURGICAL HISTORY No date: TONSILLECTOMY HX ALLERGIES Patient has no known allergies. MEDICATIONS Tadalafil (CIALIS) 5 mg tablet Take 5 mg by mouth. MAGNESIUM ORAL Take by mouth once daily. cholecalciferol, vitamin D3, (VITAMIN D3 ORAL) Take by mouth once daily. MULTIVITAMIN ORAL Take by mouth once daily. DOCOSAHEXANOIC ACID/EPA (FISH OIL ORAL) Take by mouth. SAW PALMETTO ORAL Take by mouth once daily. (Patient not taking: Reported on 09/05/2023) acyclovir (ZOVIRAX) 5 % crea Apply 1 application to affected area five times daily. (Patient not taking: Reported on 09/05/2023) acyclovir (ZOVIRAX) 5 % Crea Apply 1 application to affected area five times daily. (Patient not taking: Reported on 09/05/2023) pantoprazole (PROTONIX) 40 mg tablet Take 1 tablet by mouth once daily. (Patient not taking: Reported on 09/05/2023) PANTOPRAZOLE SODIUM (PROTONIX ORAL) Take by mouth. Pt unsure of dosage (Patient not taking: Reported on 09/05/2023) FAMILY HISTORY Problem Relation Age of Onset Diabetes Father Social History Tobacco Use Smoking status: Never Substance Use Topics Alcohol use: Yes Comment: moderate, 1-2 every couple weks Review of Systems Respiratory: Negative for chest tightness and shortness of breath. Cardiovascular: Negative for chest pain. Musculoskeletal: Negative for arthralgias, back pain, joint swelling, neck pain and neck stiffness. Skin: Positive for rash. Neurological: Negative for dizziness, weakness, light-headedness and headaches. Reports tingling of the right arm, see HPI All other systems reviewed and are negative. Objective BP 102/64 Pulse 70 Temp 36.7 C (98.1 F) Resp 16 Wt 86.1 kg (189 lb 13.1 oz) SpO2 99% BMI 25.04 kg/m Physical Exam Vitals and nursing note reviewed. Constitutional: Appearance: Normal appearance. Cardiovascular: Rate and Rhythm: Normal rate and regular rhythm. Pulses: Normal pulses. Heart sounds: Normal heart sounds. Pulmonary: Effort: Pulmonary effort is normal. Breath sounds: Normal breath sounds. Abdominal: General: Bowel sounds are normal. Musculoskeletal: General: No swelling, tenderness, deformity or signs of injury. Normal range of motion. Comments: Right upper extremity: Full pain-free range of range of motion of the head and neck and right arm. Proximal motor strength at 5/5 equipment superintendent strength 5/5 sensation is intact in all dermatomes. Neer's test is negative. Fine motor skills intact. Skin: General: Skin is warm. Findings: Erythema, lesion and rash present. Comments: Left ankle: 6 cm diameter circular erythematous rash on the anterior lateral aspect of the ankle. The lesion is warm and painful to the touch. There is no streaking. Neurological: General: No focal deficit present. Mental Status: He is alert. Psychiatric: Mood and Affect: Mood normal. Assessment and Plan ASSESSMENT/PLAN: 1. Cellulitis of skin - ICD9: 682.9, ICD10: L03.90 - Begin treatment with Cephalaxin (Keflex) - No lymphangetic streaking, this was defined for patient to watch for and to seek medical care immediately if appears - CEPHALEXIN 500 MG TABLET Patient was instructed on the use of cephalexin. Continue the triamcinolone for the left ankle. Begin the steroid as prescribed by orthopedics. Follow-up with Ortho if no relief of symptoms. Michelle Rasmussen PA-C documented in this encounter [facility] 04-09-2024 History of Presen t illness Narrative Subjective Patient ID: Michelle Nieves is a 53 y.o. male. HPI Patient is here for lab results. Hx of hypogonadism. . He is not on any replacement. Recent PSA was 0.73 on 12/07/23. Recent free testosterone was 42.1, Total testosterone was 348 (03/17), Previous was 633 on 12/15. Prior T level was 390 on 07/15. Total Estradiol level 8 (03/17) Free estradiol 0.17 (03/17) He state he feels tired and feels he is losing Muscle mass. Chronic BPH sx are mild and stable. Denies urgency and frequency. Denies dysuria. Denies hematuria. Nocturia x1. No medication for LUT'S. Sushma helpful Review of Systems Constitutional: Negative for chills and fever. HENT: Negative. Eyes: Negative. Respiratory: Negative for cough and shortness of breath. Cardiovascular: Negative for chest pain and leg swelling. Gastrointestinal: Negative for nausea. Endocrine: Negative. Genitourinary: Negative for difficulty urinating. Negative except for documented in HPI Allergic/Immunologic: Negative. Neurological: Alert & oriented X 3 Hematological: Denies blood thinners Psychiatric/Behavioral: Negative. Objective Physical Exam Vitals and nursing note reviewed. Pulmonary: Effort: Pulmonary effort is normal. Abdominal: Palpations: Abdomen is soft. Tenderness: There is no abdominal tenderness. Genitourinary: Comments: Kidneys non palpable bilaterally Bladder non palpable or tender Neurological: Mental Status: He is alert. Assessment/Plan Diagnoses and all orders for this visit: Hypogonadism in male Nocturia Benign prostatic hyperplasia with lower urinary tract symptoms, symptom details unspecified All available PSA values reviewed, Options discussed. Questions answered. Diet changes for prostate health discussed and educational information given. Pros/Cons of prostate health supplements discussed. Treatment options for LUTS reviewed Discussed timed voiding. Discussed fluid and caffeine intake Treatment options for ED reviewed. Cialis is helpful Lifestyle change to help prevent UTIs discussed. Encouraged fluid intake. pros/cons of Testosterone replacement reviewed. Replacement options discussed. Questions answered. Available levels reviewed. Patient to discuss TRT with his F/U 6 months with T level documented in this encounter [facility] Work Phone: 02-28-2024 History of Presen t illness Narrative Virtual or Telephone Consent A telephone visit (audio only) between the patient (at the originating site) and the provider (at the distant site) was utilized to provide this telehealth service. Verbal consent was requested and obtained from Michelle Nieves on this date, 02/28/24 for a telehealth visit. Subjective Patient ID: Michelle Nieves is a 53 y.o. male. HPI Patient is here for questions regarding testosterone replacement. Hx of hypogonadism. . He was given clomid last visit, but it is not covered on insurance either. . He was first given Xyosted first but decided not to do this, due to cost. Recent PSA was 0.73 on 12/06. Recent T level was 633 on 12/15. Prior T level was 390 on 07/15. Despite normal levels he feels tired and feels he is losing Muscle mass. Chronic BPH sx are mild and stable. Denies urgency and frequency. Denies dysuria. Denies hematuria. Nocturia x1. No medication for LUT'S. Review of Systems Constitutional: Negative for chills and fever. HENT: Negative. Eyes: Negative. Respiratory: Negative for cough and shortness of breath. Cardiovascular: Negative for chest pain and leg swelling. Gastrointestinal: Negative for nausea. Endocrine: Negative. Genitourinary: Negative for difficulty urinating. Negative except for documented in HPI Allergic/Immunologic: Negative. Neurological: Alert & oriented X 3 Hematological: Denies blood thinners Psychiatric/Behavioral: Negative. Objective Physical Exam No PE done given the virtual nature of visit. Assessment/Plan Diagnoses and all orders for this visit: Benign prostatic hyperplasia with lower urinary tract symptoms, symptom details unspecified Hypogonadism in male Nocturia pros/cons of Testosterone replacement reviewed. Replacement options discussed. Questions answered. Available levels reviewed. %free and Total T ordered Estradiol level ordered F/U after above 2 labs documented in this encounter [facility] Work Phone: 01-14-2024 History of Presen t illness Narrative documented in this encounter [facility] Work Phone: 12-19-2023 History of Presen t illness Narrative Subjective Patient ID: Michelle Nieves is a 53 y.o. male. HPI Patient is here for 3 month follow up for hypogonadism. . He was given clomid last visit, but it is not covered on insurance either. . He was first given Xyosted first but decided not to do this, due to cost. Recent PSA was 0.73 on 12/06. Recent T level was 633 on 12/15. Prior T level was 390 on 07/15. Chronic BPH sx are mild and stable. Denies urgency and frequency. Denies dysuria. Denies hematuria. Nocturia x1. No medication for LUT'S. Review of Systems Constitutional: Negative for chills and fever. HENT: Negative. Eyes: Negative. Respiratory: Negative for cough and shortness of breath. Cardiovascular: Negative for chest pain and leg swelling. Gastrointestinal: Negative for nausea. Endocrine: Negative. Genitourinary: Negative for difficulty urinating. Negative except for documented in HPI Allergic/Immunologic: Negative. Neurological: Alert & oriented X 3 Hematological: Denies blood thinners Psychiatric/Behavioral: Negative. Objective Physical Exam Vitals and nursing note reviewed. Pulmonary: Effort: Pulmonary effort is normal. Breath sounds: Normal breath sounds. Abdominal: Palpations: Abdomen is soft. Tenderness: There is no abdominal tenderness. Genitourinary: Comments: Kidneys non palpable bilaterally Bladder non palpable or tender Neurological: Mental Status: He is alert. Assessment/Plan Diagnoses and all orders for this visit: Nocturia Benign prostatic hyperplasia with lower urinary tract symptoms, symptom details unspecified All available PSA values reviewed, Options discussed. Questions answered. Diet changes for prostate health discussed and educational information given. Pros/Cons of prostate health supplements discussed. Treatment options for LUTS reviewed Discussed timed voiding. Discussed fluid and caffeine intake Treatment options for ED reviewed. Lifestyle change to help prevent UTIs discussed. Encouraged fluid intake. pros/cons of Testosterone replacement reviewed. Replacement options discussed. Questions answered. Available levels reviewed. Clomid Rx refilled . Will decrease dose to 25mg QMWF Xyosted Rx given as well and patient will decide which he wants to take. F/U 4months with T Level documented in this encounter [facility] Work Phone: 08-29-2023 History of Presen t illness Narrative Subjective Patient ID: Michelle Nieves is a 52 y.o. male. HPI Patient is here for 6 week follow up. He was given clomid last visit, but it is not covered on insurance either. . He was first given Xyosted first but decided not to do this, due to cost. No recent T level has been done. Prior T level was 390 on 07/15. Chronic BPH sx are mild and stable. Denies urgency and frequency. Denies dysuria. Denies hematuria. Nocturia x1. No medication for LUT'S. Review of Systems Constitutional: Negative for chills and fever. HENT: Negative. Eyes: Negative. Respiratory: Negative for cough and shortness of breath. Cardiovascular: Negative for chest pain and leg swelling. Gastrointestinal: Negative for nausea. Endocrine: Negative. Genitourinary: Negative for difficulty urinating. Negative except for documented in HPI Allergic/Immunologic: Negative. Neurological: Alert & oriented X 3 Hematological: Denies blood thinners Psychiatric/Behavioral: Negative. Objective Physical Exam No PE done given the virtual nature of visit. Assessment/Plan Diagnoses and all orders for this visit: Hypogonadism in male Nocturia Benign prostatic hyperplasia with lower urinary tract symptoms, symptom details unspecified All available PSA values reviewed, Options discussed. Questions answered. Diet changes for prostate health discussed and educational information given. Pros/Cons of prostate health supplements discussed. Treatment options for LUTS reviewed Discussed timed voiding. Discussed fluid and caffeine intake Treatment options for ED reviewed. Lifestyle change to help prevent UTIs discussed. Encouraged fluid intake. pros/cons of Testosterone replacement reviewed. Replacement options discussed. Questions answered. Available levels reviewed. F/U with PSA and Free and total T level F/U 3 -4 months documented in this encounter [facility] Work Phone: Evaluation note Diagnosis Onset Date Aortic regurgitation acute Encounter for wellness examination in adult acute Encounter to establish care acute [facility] Work Phone: Evaluation noteNo assessment information available [facility] Work Phone: Evaluation note* Diagnosis Hypogonadism in male Nocturia Benign prostatic hyperplasia with lower urinary tract symptoms, symptom details unspecified documented in this encounter [facility] Work Phone: Evaluation note* Diagnosis Nocturia- Primary Benign prostatic hyperplasia with lower urinary tract symptoms, symptom details unspecified Hypogonadism in male documented in this encounter [facility] Work Phone: Evaluation note* Diagnosis Benign prostatic hyperplasia with lower urinary tract symptoms, symptom details unspecified Hypogonadism in male Nocturia documented in this encounter [facility] Work Phone: Evaluation note* Diagnosis Cellulitis of skin- Primary Cellulitis and abscess of unspecified site Paresthesias Disturbance of skin sensation documented in this encounter [facility] note* Diagnosis Hypogonadism in male Nocturia Benign prostatic hyperplasia with lower urinary tract symptoms, symptom details unspecified documented in this encounter [facility] Work Phone: Evaluation note* Diagnosis URI, acute- Primary Acute upper respiratory infections of unspecified site Suspected COVID-19 virus infection documented in this encounter [facility] note* Diagnosis Benign prostatic hyperplasia with lower urinary tract symptoms, symptom details unspecified Nocturia Hypogonadism in male Non-recurrent inguinal hernia without obstruction or gangrene, unspecified laterality documented in this encounter [facility] Work Phone: Evaluation note* Diagnosis Right inguinal hernia- Primary Inguinal hernia without mention of obstruction or gangrene, unilateral or unspecified, (not specified as recurrent) documented in this encounter [facility] Work Phone: Evaluation note* Diagnosis Right inguinal hernia- Primary Inguinal hernia without mention of obstruction or gangrene, unilateral or unspecified, (not specified as recurrent) Right inguinal hernia Inguinal hernia without mention of obstruction or gangrene, unilateral or unspecified, (not specified as recurrent) documented in this encounter [facility] note* Diagnosis Pre-operative examination- Primary Preoperative examination, unspecified Insomnia, unspecified type Aortic valve insufficiency, etiology of cardiac valve disease unspecified Gastroesophageal reflux disease, unspecified whether esophagitis present Benign prostatic hyperplasia with lower urinary tract symptoms, symptom details unspecified Right inguinal hernia Inguinal hernia without mention of obstruction or gangrene, unilateral or unspecified, (not specified as recurrent) * Assessment & Plan Note - Kaylah Clements APRN.CNP - 10/28/2024 8:56 AM EST Associated Problem(s): Benign prostatic hyperplasia with lower urinary tract symptoms Assessment: rx as needed * Assessment & Plan Note - Kaylah Clements APRN.CNP - 10/28/2024 8:56 AM EST Associated Problem(s): Gastroesophageal reflux disease Assessment: diet controlled * Assessment & Plan Note - Kaylah Clements APRN.CNP - 10/28/2024 8:56 AM EST Associated Problem(s): Aortic valve regurgitation Assessment: hx, pt states following [facility], records requested * Assessment & Plan Note - Kaylah Clements APRN.CNP - 10/28/2024 8:55 AM EST Associated Problem(s): Insomnia Assessment: rx nightly [facility] Pre-operative examination- Primary Preoperative examination, unspecified Insomnia, unspecified type Aortic valve insufficiency, etiology of cardiac valve disease unspecified Gastroesophageal reflux disease, unspecified whether esophagitis present Benign prostatic hyperplasia with lower urinary tract symptoms, symptom details unspecified S/P bilateral inguinal hernia repair- Primary Other postprocedural status Right inguinal hernia Inguinal hernia without mention of obstruction or gangrene, unilateral or unspecified, (not specified as recurrent) [facility] NarrativePatient is here to establish as a new patient to discuss Testosterone replacement, has never been on testosterone replacement..Testosterone was 390 (07/15).. Patient complains of fatigue and is irritable. Libido is diminished. ...Patient also complains of frequency at night. Was previously taking Flomax but stopped due to side effects..Chronic BPH with LUTs, sx are chronic..PSA 0.48 (07/15) . ED is not an [id number] Work Phone: Chief Complaint and Reason for Visit Chief Complaint Establish Care/Physi sandy Nonrheumatic aortic (valve) insufficiency Reason for Visit Aortic regurgitation Encounter for wellness examination in adult Encounter to establish care Chief Complaint NEED ORDER Family History No Family History Records Found Relationship Condition Age at Onset Recorded Date/T john Not Specified Diabetes mellitus Unknown Arthritis Unknown Dementia Unknown Parkinson's disease Unknown Unknown Family Member Name Dates Details No pertinent family history: Mother, Father(V49.89, Z78.9) Status:Active Unknown Family Member Name Dates Details No pertinent family history: Mother, Father(V49.89, Z78.9) Status:Active Chief Complaint frequency Summary Purpose Advance Directives No Advanced Directives Records FoundNo Advanced Directives Records FoundNo Advanced Directives Records FoundNo Advanced Directives Records FoundNo Advanced Directives Records FoundNo Advanced Directives Records FoundNo Advanced Directives Records Found Additional Source Comments Care Teams (unrecognized sec tion and content) Team Status: Active Member Role Status Dates Dr. Janes Taylor MD Family Provider Active Dr. Danielle Rubio MD Primary Care Provider Active Team Status: Inactive Member Role Status Dates Dr. Janes Taylor MD Primary Care Provider Active Dr. Danielle Rubio MD Attending Provider Active Team Status: Active Member Role Status Dates Dr. Danielle Rubio MD Primary Care Provider Active Dr. Kirill Lewis MD Attending Provider Active Team Status: Inactive Member Role Status Dates Dr. Danielle Rubio MD Primary Care Pro vider, Attending Provider, Referring Provider Active Team Status: Inactive Member Role Status Dates Dr. Danielle Rubio MD Primary Care Provider Active Dr. aJnes Ruvalcaba II, MD Attending Provider, Referring Pro vider Active Sql Database Developer Relationship Specialty Start Date End Date Janes Taylor MD [address] [place] [address] PCP - General 06/06/23 Team Status: Inactive Member Role Status Dates Dr. Danielle Rubio MD Primary Care Provider Active Dr. Abdoul Horn DO Attending Provider, Referrin g Provider Active Sql Database Developer Relationship Specialty Start Date End Date Janes Taylor MD [address] [place] [address] PCP - General 06/06/23 Sql Database Developer Relationship Specialty Start Date End Date Janes Taylor MD [address] [place] [address] PCP - General 06/06/23 Sql Database Developer Relationship Specialty Start Date End Date Janes Taylor MD [address] [place] [address] PCP - General 06/06/23 Sql Database Developer Relationship Specialty Start Date End Date Janes Taylor MD [address] [place] [address] PCP - General Family Medicine 10/04/19 Sql Database Developer Relationship Specialty Start Date End Date Janes Taylor MD [address] [place] [address] PCP - General 06/06/23 Sql Database Developer Relationship Specialty Start Date End Date Janes Taylor MD [address] [place] [address] PCP - General 06/06/23 Sql Database Developer Relationship Specialty Start Date End Date Janes Taylor MD [address] [place] [address] PCP - General 06/06/23 Sql Database Developer Relationship Specialty Start Date End Date Janes Taylor MD [address] [place] [address] PCP - General Family Medicine 10/04/19 Sql Database Developer Relationship Specialty Start Date End Date Janes Taylor MD [address] [place] [address] PCP - General Family Medicine 10/04/19 Sql Database Developer Relationship Specialty Start Date End Date Janes Taylor MD [address] [place] [address] PCP - General Family Medicine 10/04/19 Sql Database Developer Relationship Specialty Start Date End Date Janes Taylor MD [address] [place] [address] PCP - General Family Medicine 10/04/19 Sql Database Developer Relationship Specialty Start Date End Date Janes Taylor MD Tisha MARTINEZ [facility] [address] [place] [address] PCP - General Family Medicine 10/04/19 (unrecognized sect ion and content) No Status Records FoundNo Status Records FoundNo Status Records FoundNo Status Records FoundNo Status Records FoundNo Status Records FoundNo Status Records Found INFORMATION SOURCE (unrecogn ized section and content) DATE CREATED AUTHOR 06/08/2023 [facility] DATE CREATED AUTHOR AUTHOR'S ORGANIZ ATION 06/08/2023 [employer] DATE CREATED AUTHOR AUTHOR'S ORGANIZ ATION 03/14/2024 [facility] DATE CREATED AUTHOR AUTHOR'S ORGANIZ ATION 10/06/2024 [facility] DATE CREATED AUTHOR AUTHOR'S ORGANIZ ATION 11/07/2024 [facility] DATE CREATED AUTHOR AUTHOR'S ORGANIZ ATION 11/22/2024 [facility] DATE CREATED AUTHOR AUTHOR'S ORGANIZ ATION 03/16/2025 [facility] Reason for Visit (unrecogniz ed section and content) Reason Comments Follow-up Rev labs Reason Comments Error (VOID this visit) Reason Comments low T Reason Comments Rash left ankle and tingl ing and pain in right arm x 8 days Reason Comments low testosterone Reason Comments Cough Cough, chest congest ion, sinus and fever x 3 days Reason Comments Groin Pain Reason Comments Consult 2nd opinion - R ingu inal hernia Reason Comments Consult surgery 11/05/24 at [facility] Reason Comments Return To Work Letter Reason Comments Request Outside Medical Records Reason Comments Patient Update Reason Comments Post-Op Visit 11/05 [facility] w/ M Source Comments (unrecognize d section and content) In the event this informatio n is protected by the Federal Confidentiality of Alcohol and Drug Abuse Patient Records regulations: The Federal rules restrict any use of the information to criminally investigate or prosecute any alcohol or drug abuse patient.[facility] the event this information is protected by the Federal Confidentiality of Alcohol and Drug Abuse Patient Records regulations: The Federal rules restrict any use of the information to criminally investigate or prosecute any alcohol or drug abuse patient.[facility] HospitalIn the event this information is protected by the Federal Confidentiality of Alcohol and Drug Abuse Patient Records regulations: The Federal rules restrict any use of the information to criminally investigate or prosecute any alcohol or drug abuse patient.[facility] HospitalIn the event this information is protected by the Federal Confidentiality of Alcohol and Drug Abuse Patient Records regulations: The Federal rules restrict any use of the information to criminally investigate or prosecute any alcohol or drug abuse patient.[facility] HospitalIn the event this information is protected by the Federal Confidentiality of Alcohol and Drug Abuse Patient Records regulations: The Federal rules restrict any use of the information to criminally investigate or prosecute any alcohol or drug abuse patient.[facility] HospitalIn the event this information is protected by the Federal Confidentiality of Alcohol and Drug Abuse Patient Records regulations: The Federal rules restrict any use of the information to criminally investigate or prosecute any alcohol or drug abuse patient.[facility] HospitalIn the event this information is protected by the Federal Confidentiality of Alcohol and Drug Abuse Patient Records regulations: The Federal rules restrict any use of the information to criminally investigate or prosecute any alcohol or drug abuse patient.[facility] HospitalIn the event this information is protected by the Federal Confidentiality of Alcohol and Drug Abuse Patient Records regulations: The Federal rules restrict any use of the information to criminally investigate or prosecute any alcohol or drug abuse patient.[facility] FOR RECORDS PERTAINING TO PATIENTS WHO ARE OR HAVE BEEN ENROLLED IN A CHEMICAL DEPENDENCY/SUBSTANCEABUSE PROGRAM, SOME INFORMATION MAY BE OMITTED. This clinical summary was aggregated from multiple sources. Caution should be exercised in using it in the provision of clinical care. This summary normalizes information from multiple sources, and as a consequence, information in this document may materially change the coding, format and clinical context of patient data. In addition, data may be omitted in some cases. CLINICAL DECISIONS SHOULD BE BASED ON THE PRIMARY CLINICAL RECORDS. [facility]. provides no warranty or guarantee of the accuracy or completeness of information in this document.
[2025-03-19 07:54] LABS: Hematocrit 41.9 % (40-54); Hemoglobin 14.1 g/dL (13.0-16.5)
[2025-03-19 08:41] LABS: ALB/GLOB Ratio 1.6 RATIO (0.9-2.4); AST(SGOT) 26 U/L (<=37); Alanine Aminotransfer ALT/SGPT 20 U/L (<=46); Albumin, Serum 4.2 g/dL (3.5-5.0); Alkaline Phosphatase 80 U/L (40-129); Anion Gap 10 (5-15); BUN 22 mg/dL (4-19); BUN/Creat Ratio 19.9 RATIO (10-20); Calcium,Total 8.9 mg/dL (7.6-11.0); Carbon Dioxide 22.7 mmol/L (21.0-32.0); Chloride 106 mmol/L (98-108); Cholesterol 193 mg/dL (<=200); Creatinine, Serum 1.08 mg/dL (0.70-1.20); EST Glomerular Filtration Rate 81 (>60); Follicle Stimulating Hormone 3.3 mIU/mL; Globulin 2.6 g/dL (2.2-4.2); Glucose 93 mg/dL (70-99); High Density Lipoprotein 61 mg/dL; Low Density Lipoprotein Calc. 121 mg/dL; Luteinizing Hormone 3.1 mIU/mL; PSA,Total - Annual Screen 0.44 ng/mL (0.02-4.00); Potassium 3.9 mmol/L (3.3-5.1); Protein, Total 6.8 g/dL (5.9-8.4); Sodium Level 139 mmol/L (133-145); Total Bilirubin 0.66 mg/dL (0.00-1.30); Triglycerides 56 mg/dL; Very Low Density Lipoprotein 11 mg/dL (5-40); cholesterol:hdl ratio screen 3.18
== END | disposition home or self-care (01) ==
LOC: LAB 07:15
PROVIDERS: PCP Family Medicine; Referring Provider Registered Nurse; Visit Provider Registered Nurse
DX: Z12.5 Encounter for screening for malignant neoplasm of prostate (principal); E29.1 Testicular hypofunction; R53.83 Other fatigue; R68.82 Decreased libido; R63.5 Abnormal weight gain; R35.0 Frequency of micturition; R39.16 Straining to void
CPT/HCPCS: 36415; 80053; 80061; 82627; 82670; 83001; 83002; 84146; 84153; 84270; 84402; 84403; 84443; 85014; 85018; 82626; G0103